=== PATIENT | female | born 1945 | race Caucasian/White ===

== ENCOUNTER → 2019-01-25 09:01 | Outpatient (CLI) | payer MEDICARE, SELFPAY ==
--- NOTE | 2019-01-25 09:07 | XR_ITS ---
XR chest 2V HISTORY: ITS.REASON: CHILLS,COUGH, former smoker ORDERING PHYSICIAN: Heena Angulo PATIENT AGE: 73 years COMPARISON: 10/26/2017 FINDINGS: Unremarkable heart size. Coronary artery stent is present. Lungs are free of acute infiltrate. There is hyperinflation with attenuation of the peripheral pulmonary vessels consistent with COPD. Mild degenerative changes are present in the thoracic spine with mild chronic kyphosis. IMPRESSION: COPD, no change with no acute finding
== END ==
PROVIDERS: PCP Family Medicine; Visit Provider Nurse Practitioner
DX: R68.83 Chills (without fever) (principal); R05 Cough
CPT/HCPCS: 71046

== ENCOUNTER → 2019-02-21 12:48 | Outpatient (CLI) | payer MEDICARE, SELFPAY ==
--- NOTE | 2019-02-21 12:52 | CT_ITS ---
CT lung screening EXAM: CT LUNG LOW DOSE WO CONTRAST HISTORY: 60 pack-year smoking history ITS.REASON: CURRENT TOBACCO USE, COUGH, COPD ORDERING PHYSICIAN: Heena Angulo PATIENT AGE: 74 years COMPARISON: None TECHNIQUE: The exam was performed on a GE Light Speed [address] scanner using 2.90 mGy CTDI. A low dose helical CT CHEST was performed on a multi-detector scanner. All CT scans at the facility use one or more dose reduction, viz: automated exposure control, ma/kV adjustment per patient size (including targeted exams where dose is matched to indication, i.e. head), or iterative reconstruction technique. The LDCT was performed in a facility that meets the criteria for the screening program. Data regarding this exam was submitted to ACR which is an approved registry. The order for this exam indicates that it came as a result of a lung cancer screening counseling shard decision-making visit that included all the elements required of such a visit including smoking cessation. The radiologist interpreting this exam meets the [facility] criteria for the LDCT lung cancer screening program. The exam is reported using the Lung-RADS classification scale and reported to the ACR registry. NOTE: This study was performed for the specific purposes of lung cancer screening and is not an alternative to diagnostic chest CT. RADIATION DOSE: CTDI vol(CT dose Index-volume) = 2.90mG DLP (Dose Length Product) = 106.55 mGcm FINDINGS: Centrilobular disease with scattered areas of fibrosis/scarring. 4 mm noncalcified nodule right middle lobe image #46. 4 mm noncalcified nodule right middle lobe image #58. 5 mm noncalcified nodule left upper lobe image #27. Fibrosis in the left upper lobe. Coronary artery calcification is noted. IMPRESSION: 1. Lung RADS Category: 2, benign 2. Other findings: COPD/centrilobular emphysema Coronary artery calcifications RECOMMENDATIONS: 12 month LDCT follow-up
== END ==
PROVIDERS: PCP Nurse Practitioner; Visit Provider Nurse Practitioner
DX: Z12.2 Encounter for screening for malignant neoplasm of respiratory organs (principal); Z87.891 Personal history of nicotine dependence; J44.9 Chronic obstructive pulmonary disease, unspecified; R05 Cough

== ENCOUNTER → 2019-05-30 10:15 | Outpatient (CLI) | payer MEDICARE, SELFPAY ==
--- NOTE | 2019-05-30 10:21 | XR_ITS ---
EXAM: XR cervical spine 5V HISTORY: ITS.REASON: NECK PAIN FOR 2 WKS ORDERING PHYSICIAN: Tracy Morales APRN PATIENT AGE: 74 years COMPARISON: None FINDINGS: There is minimal several millimeter anterior subluxation of C2 on C3 and C3 on C4. No fracture or dislocation. No lytic or blastic change. There is moderate loss of disc space height at C4-5 and C5-6 with small anterior spurs. There is very mild uncovertebral joint hypertrophy with mild foraminal encroachment on the right at C4-5 and C5-6. The remainder of the foraminal areas are normal. Prevertebral soft tissues appear normal. There is facet hypertrophy which is mild to moderate bilaterally at C2-3 and C3-4 especially on the right. Also noted are some calcifications in the left mid neck area. IMPRESSION: C2 on C3 and C3 on C4 mild anterolisthesis likely from facet arthrosis on the right. C4-C5 and C5-6 chronic degenerative disc disease with mild right-sided spondylosis. Calcified plaques at the left carotid bifurcation area.
== END ==
PROVIDERS: PCP Nurse Practitioner Family; Visit Provider Nurse Practitioner Family
DX: M54.2 Cervicalgia (principal)
CPT/HCPCS: 72050

== ENCOUNTER → 2019-06-09 12:45 | Outpatient (CLI) | payer MEDICARE, SELFPAY ==
--- NOTE | 2019-06-09 | CI_ITS ---
Cerebrovascular Exam Indications: 780.4 Dizziness and giddiness. Calcification seen on c-spine x-ray in area of lt carotid IMPRESSIONS 1. The right internal carotid artery reveals no evidence of plaque or stenosis. 2. The right common and external carotid arteries reveal no significant stenosis. 3. The bilateral vertebral arteries are patent with normal antegrade flow. 4. Study suggests less than 20% stenosis involving the left internal carotid artery. History: Risk factors: Current tobacco use. Hypertension. Carotid duplex study. Complete study and Doppler flow study including spectral analysis, color and mcgee scale imaging. Height: Height: 170.2cm. Height: 67in. Weight: Weight: 60.8kg. Weight: 133.7lb. Body mass index: BMI: 21kg/m^2. Body surface area: BSA: 1.69m^2. Location: Vascular laboratory. Patient status: Outpatient. Tables: Arterial flow: + +--------+--------+ Location V sys V ed + +--------+--------+ Right CCA - proximal 142cm/s 24.4cm/s + +--------+--------+ Right CCA - distal 80.9cm/s 22cm/s + +--------+--------+ Right ECA 116cm/s 12.6cm/s + +--------+--------+ Right ICA - proximal 74.1cm/s 15.8cm/s + +--------+--------+ Right ICA - mid 95.6cm/s 27.4cm/s + +--------+--------+ Right ICA - distal 77.8cm/s 21.2cm/s + +--------+--------+ Right vertebral 56.2cm/s 9.6cm/s + +--------+--------+ Left CCA - proximal 100cm/s 21.5cm/s + +--------+--------+ Left CCA - distal 85.3cm/s 23cm/s + +--------+--------+ Left ECA 107cm/s 18.3cm/s + +--------+--------+ Left ICA - proximal 71.9cm/s 17.8cm/s + +--------+--------+ Left ICA - mid 95.6cm/s 24.5cm/s + +--------+--------+ Left ICA - distal 112cm/s 37.6cm/s + +--------+--------+ Left vertebral 66cm/s 20.4cm/s + +--------+--------+ Velocity ratios: + + + + + + Right, V sys Right, V ed Left, V sys Left, V ed + + + + + + Max ICA/dist CCA 1.18 1.25 1.31 1.63 + + + + + + (Report amended ) Electronically signed by: Myron Torres [id number]
== END ==
PROVIDERS: PCP Nurse Practitioner Family; Visit Provider Family Medicine
DX: I65.22 Occlusion and stenosis of left carotid artery (principal)
CPT/HCPCS: 93880

== ENCOUNTER 2019-11-06 10:30 | Observation (INO) ==
--- NOTE | 2019-11-06 10:31 | Emergency Department Note ---
ED Disposition Clinical Impression: Chest pain Disposition: Home, Self-Care Condition on Discharge: Serious Time of Disposition: 11:30 - Critical Care Critical Care Time: No Attestation: On , the high probability of a clinically significant, sudden or life threatening deterioration of the following system(s) required my full and direct attention, intervention and personal management. The time I documented below is in addition to time spent performing reported procedures but includes the following listed in this critical care notation. Medical Decision Making - Medical Records Medical records reviewed: Yes: I reviewed the patient's medical records. - Abhishek Inquiry Pt receiving controlled substance: No Vital Signs: 11/06/19 10:22 11/06/19 11:12 Pulse Rate [Radial] 74 64 Respiratory Rate 18 Blood Pressure [Right Arm] 109/58 L 118/55 L Blood Pressure Mean [Right Arm] 75 76 Blood Pressure Source [Right Arm] Automatic Cuff Automatic Cuff Blood Pressure Position [Right Arm] Sitting Sitting 02 Sat by Pulse Oximetry 94 L 97 Oxygen Delivery Method Room Air Room Air - Lab Data Lab results reviewed: Yes: I reviewed the patient's lab results. Lab Results 11/06/19 10:23: WBC 10.2, RBC 4.60, Hgb 14.3, Hct 45.3, MCV 98.4, MCH 31.1, MCHC 31.6 L, RDW 14.0, Plt Count 321, MPV 8.2, Neut % (Auto) 55.3, Lymph % (Auto) 35.4, [place] % (Auto) 5.3, Eos % (Auto) 2.9, Baso % (Auto) 1.1, Neut # (Auto) 5.6, Lymph # (Auto) 3.6, [place] # (Auto) 0.5, Eos # (Auto) 0.3, Baso # (Auto) 0.1 11/06/19 10:23: Sodium 143, Potassium 3.5, Chloride 106, Carbon Dioxide 26, Anion Gap 14.5, BUN 16, Creatinine 0.67, Estimated Creat Clear 51, Estimated GFR 87, Est GFR ( Amer) 105, Glucose 124 H, Calcium 8.3 L, Troponin I < 0.02, TSH 8.47 H 11/06/19 10:23: PT 10.3, INR 0.99, APTT 22.0 L 11/06/19 10:23: B-Natriuretic Peptide 32 Result diagrams: 11/06/19 10:23 11/06/19 10:23 Orders (Tests/Meds): ED MEDICATIONS Discontinued Medications Generic Name Dose Route Start Last Admin Trade Name Johnna PRN Reason Stop Dose Admin Aspirin 162 mg 11/06/19 10:31 11/06/19 10:33 Aspirin 81mg Chewable Tablet PO 11/06/19 10:32 162 mg ONCE ONE Administration Aspirin 162 mg 11/06/19 10:32 Aspirin 81mg Chewable Tablet PO 11/06/19 10:33 ONCE ONE ORDERS Category Date Time Status Chest XR 2 view (NOT portable) [XR chest 2V] Stat Exams 11/06/19 10:32 Taken Free T4 (Free Thyroxine) Stat Lab 11/06/19 11:09 Ordered Troponin I Q3H Lab 11/06/19 13:45 Ordered Troponin I Q3H Lab 11/06/19 16:45 Ordered - Radiology Data #1 Image(s): Chest Image Reviewed: Yes I reviewed the patient's radiology image Preliminary Findings: Abnormal (Increased lung and lower right lung brooks but no nicole lobar consolidation.) - ECG Data Tracing #1 I reviewed this ECG and interpreted as documented below: Normal sinus rhythm with a ventricular rate of 68 bpm. ECG initial impression date: 11/06/19 ECG initial impression time: 10:20 ECG normal with no acute: arrhythmias, ischemia, conduction abnormalities, chamber hypertrophy Normal Sinus Rhythm: Yes - Physician Consults Physician Consulted: Dr. Melara for admission. Time: 11:00 Reason -: Admission Additional Consult: Dr. Sullivan for Dr. Maya [facility] cardiology. Time: 11:00 Reason -: Admission Comment/Response: Discussed patient's case with Dr. Sullivan who is on-call for the patient's assistant laboratory director Dr. Maya. He agreed to accept the patient however there is a waiting list for admission. Dr. Melara will admit the patient here and will transfer if she rules in for [place]. However, we will keep the patient on the waiting list just in case. Chest Pain HPI - General Chief Complaint: Chest Pain Stated Complaint: chest pain Time Seen by Provider: 11/06/19 10:22 Mode of Arrival: EMS Limitations: No Limitations Description of Symptoms (Recalled from ER Triage Doc. by RN): While at work today she began to have chest pain across her chest and up into her jaw. Attempted to get here via family car but had to stop and call ems. Patient has already taken 2 81mg Asa and 1 Nitro enroute. - History of Present Illness HPI narrative: 74-year-old female with a history of cardiac stent and AMI presents to the emergency department after a 30-minute episode of lower central chest pain, nausea and a syncopal episode. MD complaint: chest pain indicative of cardiac Onset (ago): hour(s) (1) Duration: constant, now resolved Pain location: substernal Severity: severe Quality: tightness, aching Pain radiation: jaw/teeth Relieving factors: nothing Exacerbating factors: nothing Associated symptoms: nausea, syncope Treatments prior to or on arrival for Cardiac Chest Pain: aspirin, nitroglycerin - Related Data Home Medications Medication Instructions Recorded Confirmed Aspirin [Aspir 81] 81 mg PO DAILY 11/06/19 11/06/19 Atenolol [Tenormin 25mg Tab] 25 mg PO DAILY 11/06/19 11/06/19 Simvastatin 20 mg PO DAILY 11/06/19 11/06/19 Allergies Allergy/AdvReac Type Severity Reaction Status Date / Time No Known Allergies Allergy Verified 11/06/19 10:27 [facility] History - Hepatitis A Screen Drug use history?: No High risk sexual behaviors?: No History of sexually transmitted infection?: No Currently employed?: No Childcare worker?: No Do you have indoor plumbing?: Yes Do you have electricity?: Yes Attestation statement:: This patient has been screened for Hepatitis A risk factors. I have reviewed the patient's past medical history: Yes Medical History: Reports:: Coronary Artery Disease, Hyperlipidemia, Hypertension Other Surgeries: Yes: Cardiac Catheterization - Social History Educational Level: Completed High School Smoking Status: Current every day smoker Tobacco Type: cigarettes # Packs/Day (cigarettes): 1 Alcohol Intake: never Occupational Status: employed Housing: house ROS Obtained: Yes Systems reviewed as appropriate & no additional complaints - Constitutional Constitutional: Reports malaise - Eyes Eyes: Reports system reviewed and no additional complaints, except as docu - ENT Ears, Nose, Mouth, and Throat: Reports system reviewed and no additional complaints, except as docu - Cardiovascular Cardiovascular: Reports chest pain, Reports radiating jaw, neck or arm pain - Respiratory Respiratory: Yes system reviewed and no additional complaints, except as docu - Gastrointestinal Gastrointestingal: Reports: nausea - Genitourinary Female Genitourinary: Reports system reviewed and no additional complaints, except as docu - Musculoskeletal Musculoskeletal: Reports system reviewed and no additional complaints, except as docu - Integumentary/Breasts Skin/Breast: Reports system reviewed and no additional complaints, except as docu - Neurologic Neurologic: Reports syncope - Endocrine Endocrine: Reports system reviewed and no additional complaints, except as docu - Hematologic/Lymphatic Henatologic/Lymphatic: Reports system reviewed and no additional complaints, except as docu - Allergic/Immunologic Allergic/Immunologic: Reports system reviewed and no additional complaints, ex cept as docu Physical Exam - General General appearance: alert, in no apparent distress - Head Head exam: atraumatic, normocephalic, normal inspection - Eye Eye exam: Present: normal appearance, PERRL, EOMI - ENT ENT exam: Present: normal exam, normal oropharynx, mucous membranes moist, normal external ear exam - Neck Neck exam: Present: normal inspection, full ROM, trachea midline. Absent: meningismus, lymphadenopathy - Chest Chest inspection: Present: normal inspection, symmetric chest wall rise. Absent: tenderness - Respiratory Respiratory exam: Present: normal lung sounds bilaterally. Absent: respiratory distress - Cardiovascular Cardiovascular exam: Present: regular rate, normal rhythm. Absent: JVD - Abdominal Exam Abdominal exam: Present: soft, normal bowel sounds. Absent: distention, tenderness, guarding - Extremities Exam Extremities exam: Present: normal inspection, full ROM, normal capillary refill. Absent: calf tenderness - Back Exam Back exam: Present: normal inspection. Absent: tenderness - Neurological Exam Neurological exam: Present: alert, oriented X3, CN II-XII intact, normal gait. Absent: motor sensory deficit - Psychiatric Psychiatric exam: Present: normal affect, normal mood - Skin Skin exam: Present: warm, dry, intact, normal color
[2019-11-06 10:46] LABS: Basophils # 0.1 K/mm3 (0-0.2); Basophils % 1.1 % (0.1-2.0); Eosinophils # 0.3 K/mm3 (0.0-0.4); Eosinophils % 2.9 % (0.1-12.0); Hematocrit 45.3 % (37.0-47.0); Hemoglobin 14.3 g/dL (12.2-16.2); Lymphocytes # 3.6 K/mm3 (0.7-4.5); Lymphocytes % 35.4 % (10-50); Mean Corpuscular HGB Conc 31.6 g/dL (31.8-35.4); Mean Corpuscular Volume 98.4 fl (81-99); Mean Platelet Volume 8.2 fl (7.4-10.4); Monocytes # 0.5 K/mm3 (0.1-1.0); Monocytes % 5.3 % (1.7-9.3); Neutrophils # 5.6 K/mm3 (1.8-7.8); Neutrophils % 55.3 % (37.0-80.0); Platelet Count 321 K/mm3 (142-424); White Blood Count 10.2 K/mm3 (4.8-10.8)
[2019-11-06 10:51] LABS: INR 0.99 (0.9-1.1); Prothrombin Time 10.3 seconds (9.4-11.8)
[2019-11-06 11:03] LABS: Anion Gap 14.5 mEq/L (5-15); Blood Urea Nitrogen 16 mg/dL (7-18); Calcium 8.3 mg/dL (8.5-10.1); Carbon Dioxide 26 mmol/L (21.0-32.0); Chloride 106 mmol/L (98-107); Glucose 124 mg/dL (74-106); Sodium 143 mmol/L (136-145); Thyroid Stimulating Hormone 8.47 uIU/ml (0.358-3.740)
--- NOTE | 2019-11-06 13:11 | History & Physical Report ---
*Admission Date: 11/06/19 *Chief complaint: Chest Tightness *History of present illness: 74 year old female with PMH of NSTEMI nearly 20 years ago presented to ER after an episode of chest tightness like "a band was wrapped around my chest". 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 She informed coworkers and was given aspirin and nitroglycerin. After receiving the nitroglycerin patient became weak and turned ashen according to coworkers. Initially she was going to be brought to the ER via private vehicle but lost consciousness in route and EMS was called. When in route by EMS patient also vomited. EKG performed in route did not reveal any ischemia or acute injury. Chest tightness had completely resolved by the time patient arrived to the ER. In ER workup was essentially normal. Patient has admitted for telemitry monitoring and serial troponins. Patient feels "almost" back to baseline. She denies dyspnea, diarrhea, fevers, chills. She slept well last night. Her Administrative Assistant is Dr. Brian Amador and she last saw him in February 2019. [facility] History I have reviewed the patient's past medical history: Yes Medical History: Reports:: Coronary Artery Disease, Hyperlipidemia, Hypertension *Have you ever received a pneumonia vaccine?: Yes *Have you received a flu vaccine this season?: Yes Laterality Cases: Right: Other (pinning of hip fracture) Other Surgeries: Yes: Cardiac Catheterization - *Social History Educational Level: Completed High School Smoking Status: Current every day smoker Tobacco Type: cigarettes # Packs/Day (cigarettes): 1 Alcohol Intake: never *Occupational Status:: employed Housing: house *Travel in the last 8 weeks: None Family Hx:: Heart Attack, Hypertension Review of Systems - Review of Systems see HPI - *Neurologic Reports fainting Meds Home Medications Medication Instructions Recorded Confirmed Type Aspirin [Aspir 81] 81 mg PO DAILY 11/06/19 11/06/19 History Atenolol [Tenormin 25mg Tab] 25 mg PO DAILY 11/06/19 11/06/19 History Simvastatin 20 mg PO DAILY 11/06/19 11/06/19 History Allergies Allergy/AdvReac Type Severity Reaction Status Date / Time No Known Allergies Allergy Verified 11/06/19 10:27 Exam Vital signs and Labs for Last 24 Hours: Temp Pulse Resp BP Pulse Ox 98.1 F 90 20 108/70 L 99 11/06/19 12:50 11/06/19 12:50 11/06/19 12:50 11/06/19 12:50 11/06/19 12:40 Laboratory Results - last 24 hr 11/06/19 10:23: WBC 10.2, RBC 4.60, Hgb 14.3, Hct 45.3, MCV 98.4, MCH 31.1, MCHC 31.6 L, RDW 14.0, Plt Count 321, MPV 8.2, Neut % (Auto) 55.3, Lymph % (Auto) 35.4, [place] % (Auto) 5.3, Eos % (Auto) 2.9, Baso % (Auto) 1.1, Neut # (Auto) 5.6, Lymph # (Auto) 3.6, [place] # (Auto) 0.5, Eos # (Auto) 0.3, Baso # (Auto) 0.1 11/06/19 10:23: Sodium 143, Potassium 3.5, Chloride 106, Carbon Dioxide 26, Anion Gap 14.5, BUN 16, Creatinine 0.67, Estimated Creat Clear 51, Estimated GFR 87, Est GFR ( Amer) 105, Glucose 124 H, Calcium 8.3 L, Troponin I < 0.02, TSH 8.47 H 11/06/19 10:23: PT 10.3, INR 0.99, APTT 22.0 L 11/06/19 10:23: B-Natriuretic Peptide 32 11/06/19 10:23: Free T4 0.87 I & O for Last 24 hours: Intake & Output 11/04/19 11/05/19 11/06/19 11/07/19 11:59 11:59 11:59 11:59 Weight 139 lb 134 lb 7 oz - *Routine HEENT Exam Head: Present: normocephalic Eye: Present: EOMI, PERRL ENT: Present: mucous membranes moist - *Routine Neck Exam Present: supple. Absent: lymphadenopathy - *Routine Respiratory Exam Present: CTA bilaterally - *Routine Cardiovascular Exam Present: RRR - *Routine Abdominal Exam Present: soft, normoactive bowel sounds. Absent: tenderness - *Routine Extremities Exam Present: edema (left lower leg from trauma/venous insuff). Absent: cyanosis, clubbing - *Routine Skin Exam Present: warm. Absent: rash - *Routine Neurological Exam Present: alert, oriented X3 Assessment and Plan (1) Coronary artery disease Current visit: Yes Status: Acute Category: Medical Code(s): I25.10 - Atherosclerotic heart disease of [place] coronary artery without angina pectoris (2) History of NH (myocardial infarction) Current visit: Yes Status: Acute Category: Medical Code(s): I25.2 - Old myocardial infarction (3) Cigarette smoker Current visit: Yes Status: Acute Category: Medical Code(s): F17.210 - Nicotine dependence, cigarettes, uncomplicated (4) Chest pain Current visit: Yes Status: Acute Category: Medical Code(s): R07.9 - Chest pain, unspecified - Assessment and plan all Dx Assessment and Plan for all problems:: Admit for rule out of NH and cardiac monitoring. Echocardiogram in a.m.
--- NOTE | 2019-11-07 07:15 | Progress Note ---
Internal Medicine - PN: Subj *Date: 11/07/19 *Time: 07:14 Interval history: Patient ruled out for NC yesterday. She has not had any further chest pain. Telemetry has not revealed any arrhythmias. She is scheduled for echocardiogram this morning. Exam Vital signs and Labs for Last 24 Hours: Temp Pulse Resp BP Pulse Ox 98.2 F 71 17 140/69 97 11/07/19 04:00 11/07/19 04:00 11/07/19 04:00 11/07/19 04:00 11/07/19 04:00 Laboratory Results - last 24 hr 11/06/19 10:23: WBC 10.2, RBC 4.60, Hgb 14.3, Hct 45.3, MCV 98.4, MCH 31.1, MCHC 31.6 L, RDW 14.0, Plt Count 321, MPV 8.2, Neut % (Auto) 55.3, Lymph % (Auto) 35.4, [place] % (Auto) 5.3, Eos % (Auto) 2.9, Baso % (Auto) 1.1, Neut # (Auto) 5.6, Lymph # (Auto) 3.6, [place] # (Auto) 0.5, Eos # (Auto) 0.3, Baso # (Auto) 0.1 11/06/19 10:23: Sodium 143, Potassium 3.5, Chloride 106, Carbon Dioxide 26, Anion Gap 14.5, BUN 16, Creatinine 0.67, Estimated Creat Clear 51, Estimated GFR 87, Est GFR ( Amer) 105, Glucose 124 H, Calcium 8.3 L, Troponin I < 0.02, TSH 8.47 H 11/06/19 10:23: PT 10.3, INR 0.99, APTT 22.0 L 11/06/19 10:23: B-Natriuretic Peptide 32 11/06/19 10:23: Free T4 0.87 11/06/19 14:25: Troponin I < 0.02 11/06/19 16:58: Troponin I < 0.02 I & O for Last 24 hours: Intake & Output 11/04/19 11/05/19 11/06/19 11/07/19 11:59 11:59 11:59 11:59 Intake Total 720 / 720 Balance 720 / 720 Weight 139 lb 134 lb 7 oz Narrative: Patient appears comfortable sitting in bed. Lungs remain clear. Heart has a regular rate and rhythm. She has swelling around the left lower leg and ankle from prior trauma Assessment and Plan (1) Coronary artery disease Current visit: Yes Status: Acute Category: Medical Code(s): I25.10 - Atherosclerotic heart disease of [place] coronary artery without angina pectoris (2) History of NC (myocardial infarction) Current visit: Yes Status: Acute Category: Medical Code(s): I25.2 - Old myocardial infarction (3) Cigarette smoker Current visit: Yes Status: Acute Category: Medical Code(s): F17.210 - Nicotine dependence, cigarettes, uncomplicated (4) Chest pain Current visit: Yes Status: Acute Category: Medical Code(s): R07.9 - Chest pain, unspecified - Assessment and plan all Dx Assessment and Plan for all problems:: 1. Echocardiogram today and discharge later this morning. Follow-up will be arranged with patient's microbiology lab analyst Dr. Amador
--- NOTE | 2019-11-07 07:19 | Discharge Summary ---
General - General Admission date:: 11/06/19 Discharge date: 11/07/19 HPI HPI: 74 year old female with PMH of NSTEMI nearly 20 years ago presented to ER after an episode of chest tightness like "a band was wrapped around my chest". 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 She informed coworkers and was given aspirin and nitroglycerin. After receiving the nitroglycerin patient became weak and turned ashen according to coworkers. Initially she was going to be brought to the ER via private vehicle but lost consciousness in route and EMS was called. When in route by EMS patient also vomited. EKG performed in route did not reveal any ischemia or acute injury. Chest tightness had completely resolved by the time patient arrived to the ER. In ER workup was essentially normal. Patient has admitted for telemitry monitoring and serial troponins. Patient feels "almost" back to baseline. She denies dyspnea, diarrhea, fevers, chills. She slept well last night. Her Service Center Coordinator is Dr. Brian Amador and she last saw him in February 2019. Hospital Course Hospital Course: Patient was admitted for rule out of RI. Troponins were ordered every 3x2 after troponin in the emergency department was negative. Patient subsequent troponins remained low at less than 0.02. Telemetry monitoring did not reveal any cardiac arrhythmias. Patient did well overnight without recurrence of chest pain, nausea or weakness. Echocardiogram was performed. Patient was discharged home later in the day and follow-up will be arranged with her marketing analyst Dr. Brian Amador Objective Vital signs: Temp Pulse Resp BP Pulse Ox 98.2 F 71 17 140/69 97 11/07/19 04:00 11/07/19 04:00 11/07/19 04:00 11/07/19 04:00 11/07/19 04:00 no acute distress - *Routine Respiratory Exam Present: CTA bilaterally - *Routine Cardiovascular Exam Present: RRR, Normal S1, Normal S2 Results Labs on day of discharge: Labs from last 24 hours 11/06/19 11/06/19 11/06/19 16:58 14:25 10:23 WBC RBC Hgb Hct MCV MCH MCHC RDW Plt Count MPV Neut % (Auto) Lymph % (Auto) Stan[place] % (Auto) Eos % (Auto) Baso % (Auto) Neut # (Auto) Lymph # (Auto) Stan[place] # (Auto) Eos # (Auto) Baso # (Auto) PT INR APTT Sodium Potassium Chloride Carbon Dioxide Anion Gap BUN Creatinine Estimated Creat Clear Estimated GFR Est GFR ( Amer) Glucose Calcium Troponin I < 0.02 < 0.02 B-Natriuretic Peptide TSH Free T4 0.87 11/06/19 11/06/19 11/06/19 10:23 10:23 10:23 WBC RBC Hgb Hct MCV MCH MCHC RDW Plt Count MPV Neut % (Auto) Lymph % (Auto) Stan[place] % (Auto) Eos % (Auto) Baso % (Auto) Neut # (Auto) Lymph # (Auto) Stan[place] # (Auto) Eos # (Auto) Baso # (Auto) PT 10.3 INR 0.99 APTT 22.0 L Sodium 143 Potassium 3.5 Chloride 106 Carbon Dioxide 26 Anion Gap 14.5 BUN 16 Creatinine 0.67 Estimated Creat Clear 51 Estimated GFR 87 Est GFR ( Amer) 105 Glucose 124 H Calcium 8.3 L Troponin I < 0.02 B-Natriuretic Peptide 32 TSH 8.47 H Free T4 11/06/19 10:23 WBC 10.2 RBC 4.60 Hgb 14.3 Hct 45.3 MCV 98.4 MCH 31.1 MCHC 31.6 L RDW 14.0 Plt Count 321 MPV 8.2 Neut % (Auto) 55.3 Lymph % (Auto) 35.4 Stanly % (Auto) 5.3 Eos % (Auto) 2.9 Baso % (Auto) 1.1 Neut # (Auto) 5.6 Lymph # (Auto) 3.6 Stanly # (Auto) 0.5 Eos # (Auto) 0.3 Baso # (Auto) 0.1 PT INR APTT Sodium Potassium Chloride Carbon Dioxide Anion Gap BUN Creatinine Estimated Creat Clear Estimated GFR Est GFR ( Amer) Glucose Calcium Troponin I B-Natriuretic Peptide TSH Free T4 DS: Diagnosis - Discharge Diagnosis (1) Coronary artery disease Status: Acute (2) History of RI (myocardial infarction) Status: Acute (3) Cigarette smoker Status: Acute (4) Chest pain Status: Acute Discharge Plan - Patient Discharge Instructions ACTIVITY: Continue current activity Patient Instructions: Assess Your Smoking Habit, Tips to Help You Stop Smoking, DI for Chest Pain, DI for Coronary Artery Disease - Follow up Plan Follow up with: Dewayne Melara MD [Primary Care Provider] - Disposition: Home, Self-Assisted Medications: Home Medications Medication Instructions Recorded Confirmed Type Aspirin [Aspir 81] 81 mg PO DAILY 11/06/19 11/06/19 History Atenolol [Tenormin 25mg Tab] 25 mg PO DAILY 11/06/19 11/06/19 History Simvastatin 20 mg PO DAILY 11/06/19 11/06/19 History Prescriptions/Medication Reconciliation: Continued Simvastatin 20 mg PO DAILY Atenolol [Tenormin 25mg Tab] 25 mg PO DAILY Aspirin [Aspir 81] 81 mg PO DAILY - Problem Reconciliation Problems Reviewed?: Yes
[2019-11-07 07:30] LABS: Basophils # 0.1 K/mm3 (0-0.2); Basophils % 0.9 % (0.1-2.0); Eosinophils # 0.2 K/mm3 (0.0-0.4); Eosinophils % 2.6 % (0.1-12.0); Hematocrit 41.8 % (37.0-47.0); Hemoglobin 13.5 g/dL (12.2-16.2); Lymphocytes # 2.2 K/mm3 (0.7-4.5); Lymphocytes % 25.4 % (10-50); Mean Corpuscular HGB Conc 32.2 g/dL (31.8-35.4); Mean Corpuscular Volume 98.3 fl (81-99); Mean Platelet Volume 7.5 fl (7.4-10.4); Monocytes # 0.4 K/mm3 (0.1-1.0); Monocytes % 4.7 % (1.7-9.3); Neutrophils # 5.9 K/mm3 (1.8-7.8); Neutrophils % 66.6 % (37.0-80.0); Platelet Count 251 K/mm3 (142-424); Red Blood Count 4.26 M/mm3 (4.20-5.40); Red Cell Distribution Width 14.1 % (11.5-17.5); White Blood Count 8.8 K/mm3 (4.8-10.8)
[2019-11-07 08:16] LABS: Albumin Level 3.1 gm/dL (3.4-5.0); Anion Gap 14.5 mEq/L (5-15); Bilirubin,Total 0.4 mg/dL (0.2-1.0); Calcium 7.8 mg/dL (8.5-10.1); Chol/HDL Ratio 2.5 (1-3.5); Globulin 3.1 gm/dl (1.3-3.2); Total Protein,Serum 6.2 gm/dL (6.4-8.2)
--- NOTE | 2019-11-07 18:15 | Electrocardiograph Report ---
APPROVED REPORT Exam: Resting ECG HR:68 bpm ECG Measurements Heart Rate [address] 144 P 73 QRSd 78 QRS -23 QT 466 T101 QTc 495 <Conclusion> Normal sinus rhythm LAD Abnormal ECG Electronically signed by : Aroldo Wasserman, 11/07/2019 18:14:52
--- NOTE | 2019-11-08 14:16 | Cardiology Report ---
APPROVED REPORT EXAM: Comprehensive 2D, Doppler, and color-flow Echocardiogram French Comber: Christy Rosado RVT Ht: 5 ft 7 in Wt: 134lbs BSA: 1.71 BP: 108/70 mmHg Indications: Chest Pain, Hyperlipidemia, Hypertension,Ex-smoker,NSTEMI-20YRS AGO,CAD 2D Dimensions LVOT 1.82 cm (M/F) 1.5-2.5 M-Mode Dimensions RVDd 2.13 cm (0.9-2.6)LA Diam 3.90 cm (1.9-4.0) LVDd 5.09 cm (3.5-5.7)Ao Diam 2.80 cm (2.0-3.7) LVDs 3.49 cm (3.5-5.7)AV Cusp 2.00 cm (1.5-2.6) IVSd 0.99 cm (0.6-1.1)PWd 0.68 cm (0.6-1.1) EF (Teich) 59.00% FS 31.40% EDV (Teich) 123.20 mLESV (Teich) 50.50 mL LV Diastology E/A Ratio 0.93 Mitral Valve MV A Velocity 78.00 (40-130 cm/s) Left Ventricle Left atrium is mildly enlarged, left ventricle is normal size, mild concentric left ventricular hypertrophy, visually estimated ejection fraction 45%, there is marked hypokinesis involving the inferior basal and posterolateral wall. Grade 1 diastolic dysfunction seen without tissue Doppler evidence of raise left atrial pressure. Right Ventricle Right atrium and right ventricular mildly enlarged with normal contractility. Aortic Valve Aortic valve is thickened and calcified leaflet chordae display good mobility, there is no aortic stenosis or aortic insufficiency. Mitral Valve Mitral valve is minimally thickened, there is no mitral stenosis, there is mild mitral regurgitation. Tricuspid Valve Tricuspid valve is grossly normal, there is mild tricuspid regurgitation. Pulmonic Valve Pulmonic valve is poorly visualized. Great Vessels Aortic root is normal size. Pericardium No significant pericardial effusion noted. Conclusion 1. Biatrial enlargement, normal left ventricular size, mild concentric left ventricular hypertrophy, visually estimated ejection fraction 45% with multiple segmental wall motion abnormality described above, grade 1 diastolic dysfunction seen without tissue Doppler evidence of raise left atrial pressure. 2. Mildly enlarged right ventricle with normal contractility. 3. Mild mitral and tricuspid regurgitation. 4. No significant pericardial effusion noted. Electronically signed by : Roberto Abreu, 11/08/2019 14:16:44
== END 2019-11-07 10:09 | disposition home or self-care (01) ==
LOC: 2ND 10:30 → ER 10:30 → 2ND 12:38
PROVIDERS: ADMIT Family Medicine; ATTEND Family Medicine
CPT/HCPCS: 36415; 71020; 71046; 80048; 80053; 80061; 83880; 84439; 84443; 84484; 85025; 85610; 85730; 93005; 93306; 99284; G0378

== ENCOUNTER → 2019-11-10 12:29 | Outpatient (CLI) | payer MEDICARE, SELFPAY ==
--- NOTE | 2019-11-10 12:34 | XR_ITS ---
PROCEDURE: XR TIBIA FIBULA LT 2V CLINICAL INDICATION: INJURY TO BERUMEN, PAIN COMPARISON: No exams were available for comparison FINDINGS: No fracture or dislocation. No lytic or blastic change. There is mild osteoarthritic change of medial compartment IMPRESSION: No acute findings. Dictated by: Myron Torres MD 11/10/2019 12:50 Electronically signed by Myron Torres MD in [place] 11/10/2019 12:50
== END ==
PROVIDERS: PCP Family Medicine; Visit Provider Family Medicine
DX: M79.662 Pain in left lower leg (principal)
CPT/HCPCS: 73590

== ENCOUNTER → 2020-11-14 12:34 | Outpatient (CLI) | payer MEDICARE, SELFPAY ==
[2020-11-14 14:54] LABS: Coronavirus 19 IgG Antibody Negative (Negative); Coronavirus 19 IgM Antibody Negative (Negative)
== END ==
PROVIDERS: Visit Provider Surgery
DX: Z01.818 Encounter for other preprocedural examination (principal); Z03.818 Encounter for observation for suspected exposure to other biological agents ruled out; Z12.11 Encounter for screening for malignant neoplasm of colon
CPT/HCPCS: 36415; 86328

== ENCOUNTER 2020-11-15 06:22 | Day surgery (SDC) | payer MEDICARE, SELFPAY ==
[2020-11-13 10:34] VITALS: BMI 22.1
[2020-11-15 06:42] VITALS: BP 122/68; PULSE 99; RESP 20; TEMP 36.3; O2SAT 96
--- NOTE | 2020-11-15 07:09 | HMH.ANESCL ---
[facility] Anesthesia Checklist - Patient Identification Patient Identification: Arm Band, Verbal (Name & ) - Structural Data Admitted From: Home Planned Operative Procedure/s: colonoscopy Consent for Planned Operative Procedure(s) Verified: Yes Verified Documents: History and Physical - NPO Status Verified Time NPO: 00:00 - Additional verifications Patient : No Anesthesia Reactions: No Hx Blood Transfusions: No Blood Transfusion Reaction: No Cephalosporin Allergy: No Previous Colonoscopy: Yes - Cardiovascular Assessment Heart Sounds: S1 & S2 Pulse Strength: Baseline Pulse Rhythm: Regular Peripheral Edema: No - Airway Assessment C-Spine Mobility Assessed: Yes TMJ Mobility Assessed: Yes Dentition: Partials - Neurological Assessment Level of Consciousness: Awake, Alert, Appropriate Hx Seizures: No Numbness or tingling in extremities: No - Anesthesia Plan Anesthesia Risk discussed: Yes Anesthesia Plan: Verified ASA Class: III Anesthesia Type: MAC [facility] History I have reviewed the patient's past medical history: Yes Medical History: Reports:: Coronary Artery Disease, Hyperlipidemia, Hypertension Denies:: Cancer, Diabetes Mellitus Type 1, Diabetes Mellitus Type 2, Internal Pacemaker, MRSA, Seizures *Have you ever received a pneumonia vaccine?: Yes *Have you received a flu vaccine this season?: Yes Anesthesia experience/problems:: none Laterality Cases: Right: Other Other Surgeries: Yes: Cardiac Catheterization, Colonoscopy, Coronary Stent. No: Pacemaker Amputation: No Fractures: No - *Social History Last grade of school completed: High school graduate Smoking Status: Never smoker Tobacco Type: cigarettes # Packs/Day (cigarettes): 1 Alcohol Intake: never Substance Use Type: other *Occupational Status:: employed Housing: house Household Members: none *Travel in the last 8 weeks: None Family Hx:: Cancer, Coronary Artery Disease, Heart Attack
[2020-11-15 07:13] VITALS: O2SAT 97
[2020-11-15 08:14] VITALS: BP 89/51; PULSE 73; RESP 18; TEMP 36.2; O2SAT 92
--- NOTE | 2020-11-15 08:16 | HMH.SCOPE ---
- Procedure: Date: 11/15/20 Patient Date of :: 1945 Procedure Performed:: Colonoscopy with polypectomy Indications:: History of colon polyps Performing Provider:: Hardeep Riley MD Referring Provider:: Dr. Melara Sedation:: Monitored anesthesia care Procedure:: After informed consent was obtained the patient was taken to the endoscopy suite. Sedation ensued after the patient was transferred to the left lateral decubitus position. Pulse, blood pressure, and oxygen saturation were monitored throughout the procedure. Digital rectal exam revealed no significant abnormality. The colonoscope was placed in position. The entire colon was evaluated. The colonoscope was carefully removed and the patient was transferred to recovery in stable condition. Please see findings and specimens below for detail. Findings:: Bowel preparation poor Significant sigmoid diverticulosis Significant tortuosity of sigmoid colon Multiple complex polyps (see specimens) Specimens:: Pedunculated cecal polyp (snare) Sessile right colon polyp (snare) Adjacent polyps at 50 cm (snare) Adjacent polyps at 12 cm (snare) Recommendations:: Timing of repeat colonoscopy is pending pathology but will likely be between 3-6 months with extended bowel preparation. Complications:: Poor bowel preparation Estimated blood obtained (mL): 1
[2020-11-15 08:24] VITALS: BP 99/71; PULSE 78; RESP 18; O2SAT 96
[2020-11-15 08:34] VITALS: BP 133/69; PULSE 76; RESP 18; O2SAT 98
[2020-11-15 08:47] VITALS: BP 131/69; PULSE 74; RESP 18; O2SAT 98
== END 2020-11-15 08:50 | disposition home or self-care (01) ==
LOC: OUTP 06:23
PROVIDERS: PCP Family Medicine; Visit Provider Surgery
PROC: 0DJD8ZZ Inspection of Lower Intestinal Tract, Via Natural or Artificial Opening Endoscopic (ICD-10-PCS; CPT 45385; principal; 2020-11-15 07:30)
DX: Z12.11 Encounter for screening for malignant neoplasm of colon (principal); Z86.010 Personal history of colon polyps; K57.30 Diverticulosis of large intestine without perforation or abscess without bleeding; K63.5 Polyp of colon; K56.2 Volvulus; I25.2 Old myocardial infarction; I25.10 Atherosclerotic heart disease of native coronary artery without angina pectoris; E78.5 Hyperlipidemia, unspecified; I10 Essential (primary) hypertension; Z79.82 Long term (current) use of aspirin; Z79.899 Other long term (current) drug therapy
CPT/HCPCS: 45385; 88305

== ENCOUNTER → 2021-01-16 09:15 | Outpatient (CLI) | payer MEDICARE, SELFPAY ==
--- NOTE | 2021-01-16 09:19 | CA_ITS ---
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 Color flow duplex demonstrates no evidence of SVT of the Small and Great Saphenous Veins. Negative for DVT. Conclusion Color flow duplex demonstrates no evidence of DVT of the following right lower extremity Vein:. Color flow duplex demonstrates no evidence of SVT of the Small and Great Saphenous Veins. Negative for DVT. Electronically signed by : Myron Torres MD 01/16/2021 18:31:10
== END ==
PROVIDERS: PCP Family Medicine; Visit Provider Nurse Practitioner Family
DX: M79.661 Pain in right lower leg (principal); R60.0 Localized edema
CPT/HCPCS: 93971

== ENCOUNTER → 2021-03-26 08:24 | Outpatient (CLI) | payer MEDICARE, SELFPAY | PROVIDERS: Visit Provider Surgery | DX: Z01.812 Encounter for preprocedural laboratory examination (principal); Z20.822 Contact with and (suspected) exposure to COVID-19; Z12.11 Encounter for screening for malignant neoplasm of colon | CPT/HCPCS: U0003 ==

== ENCOUNTER 2021-03-28 06:32 | Day surgery (SDC) | payer MEDICARE, SELFPAY ==
[2021-03-20 14:58] VITALS: BMI 22.2
[2021-03-28 06:46] VITALS: BP 126/83; PULSE 83; RESP 18; TEMP 36.2; O2SAT 95
--- NOTE | 2021-03-28 07:04 | P.PN_ITS ---
[facility] Anesthesia Checklist - Patient Identification Patient Identification: Arm Band - Structural Data Admitted From: Home Planned Operative Procedure/s: Colonoscopy Consent for Planned Operative Procedure(s) Verified: Yes - NPO Status Verified Time NPO: 04:45 (Black coffee) - Additional verifications Anesthesia Reactions: No Hx Blood Transfusions: No Blood Transfusion Reaction: No - Airway Assessment C-Spine Mobility Assessed: Yes TMJ Mobility Assessed: Yes Dentition: Poor Dentition (Partial removed) - Neurological Assessment Level of Consciousness: Awake Hx Seizures: No Numbness or tingling in extremities: No - Anesthesia Plan Anesthesia Risk discussed: Yes Anesthesia Plan: Verified ASA Class: III Anesthesia Type: MAC [facility] History I have reviewed the patient's past medical history: Yes Medical History: Reports:: Coronary Artery Disease, Hyperlipidemia, Hypertension, Myocardial Infarction Denies:: Cancer, Diabetes Mellitus Type 1, Diabetes Mellitus Type 2, Internal Pacemaker, MRSA, Seizures *Have you ever received a pneumonia vaccine?: Yes *Have you received a flu vaccine this season?: Yes Other Medical History: Denies: Blood Transfusion Reaction Anesthesia experience/problems:: None Laterality Cases: Right: Other Other Surgeries: Yes: Cardiac Catheterization, Colonoscopy, Coronary Stent. No: Pacemaker Amputation: No Fractures: No - *Social History Smoking Status: Never smoker Tobacco Type: cigarettes # Packs/Day (cigarettes): 1 Alcohol Intake: never Substance Use Type: other *Occupational Status:: employed Housing: house Household Members: none *Travel in the last 8 weeks: None Family Hx:: Cancer, Coronary Artery Disease, Heart Attack
[2021-03-28 07:28] VITALS: O2SAT 97
--- NOTE | 2021-03-28 08:20 | P.PCN_ITS ---
- Procedure: Date: 03/28/21 Patient Date of :: 1945 Procedure Performed:: Colonoscopy with polypectomy Indications:: History of multiple complex polyps noted earlier this year. Colonoscopy earlier this year limited by fairly poor bowel preparation, significant spasticity, and lack of relaxation. Sigmoid diverticulosis Performing Provider:: Hardeep Riley MD Referring Provider:: . Sedation:: Monitored anesthesia care Procedure:: After informed consent was obtained the patient was taken to the endoscopy suite. Sedation ensued after the patient was transferred to the left lateral decubitus position. Pulse, blood pressure, and oxygen saturation were monitored throughout the procedure. Digital rectal exam revealed no significant abnorma lity. The colonoscope was placed in position. The entire colon was evaluated. The colonoscope was carefully removed and the patient was transferred to recovery in stable condition. Please see findings and specimens below for detail. Findings:: Bowel preparation moderate to poor (improved versus prior evaluation) Sigmoid diverticulosis unchanged Sigmoid spasticity and lack of relaxation noted; however, improved versus prior evaluation Polyps (see specimens) Specimens:: Sessile polyp at 50 cm (cold snare) Polyp at 30 cm (cold snare) Adjacent polyps around 10 cm (cold snare) Recommendations:: Timing of repeat colonoscopy is pending pathology but will likely be around 1-2 years secondary to persistent limited bowel preparation, polyps noted on short- term repeat colonoscopy, and persistent spasticity/lack of relaxation. Complications:: No immediate Estimated blood obtained (mL): 1
[2021-03-28 08:22] VITALS: BP 116/62; PULSE 83; RESP 16; TEMP 37.1; O2SAT 95
[2021-03-28 08:32] VITALS: BP 98/66; PULSE 82; RESP 16; O2SAT 97
[2021-03-28 08:42] VITALS: BP 98/58; PULSE 84; RESP 16; O2SAT 97
[2021-03-28 08:52] VITALS: BP 99/62; PULSE 83; RESP 16; O2SAT 98
== END 2021-03-28 08:52 | disposition home or self-care (01) ==
LOC: OUTP 06:33
PROVIDERS: PCP Family Medicine; Visit Provider Surgery
PROC: 0DJD8ZZ Inspection of Lower Intestinal Tract, Via Natural or Artificial Opening Endoscopic (ICD-10-PCS; principal; 2021-03-28 07:30)
DX: Z12.11 Encounter for screening for malignant neoplasm of colon (principal); K62.1 Rectal polyp; K57.30 Diverticulosis of large intestine without perforation or abscess without bleeding; K63.5 Polyp of colon; K58.9 Irritable bowel syndrome, unspecified; Z86.010 Personal history of colon polyps; I25.10 Atherosclerotic heart disease of native coronary artery without angina pectoris; E78.5 Hyperlipidemia, unspecified; I10 Essential (primary) hypertension; I25.2 Old myocardial infarction; Z82.3 Family history of stroke; Z80.9 Family history of malignant neoplasm, unspecified
CPT/HCPCS: 45385; 88305; J2704

== ENCOUNTER → 2021-06-29 08:24 | Outpatient (CLI) | payer MEDICARE, SELFPAY | PROVIDERS: Visit Provider Ophthalmology | DX: Z01.812 Encounter for preprocedural laboratory examination (principal); Z20.822 Contact with and (suspected) exposure to COVID-19 | CPT/HCPCS: U0003 ==

== ENCOUNTER 2021-07-02 09:39 | Day surgery (SDC) | payer MEDICARE, SELFPAY ==
[2021-06-26 14:30] VITALS: BMI 22.4
[2021-07-02 10:40] VITALS: BP 120/68; PULSE 64; RESP 18; TEMP 36.2; O2SAT 94
[2021-07-02 12:06] VITALS: BP 137/65; PULSE 54; RESP 16; O2SAT 96
[2021-07-02 12:11] VITALS: BP 133/68; PULSE 58; RESP 16; O2SAT 96
[2021-07-02 12:16] VITALS: BP 126/60; PULSE 57; RESP 16; O2SAT 99
[2021-07-02 12:21] VITALS: BP 120/57; PULSE 55; RESP 16; O2SAT 99
[2021-07-02 12:25] VITALS: BP 126/70; PULSE 71; RESP 16; TEMP 36.1; O2SAT 96
== END 2021-07-02 12:36 | disposition home or self-care (01) ==
LOC: OR 09:41
PROVIDERS: PCP Family Medicine; Visit Provider Ophthalmology
DX: H25.813 Combined forms of age-related cataract, bilateral (principal); H53.149 Visual discomfort, unspecified; H02.831 Dermatochalasis of right upper eyelid; H02.834 Dermatochalasis of left upper eyelid; Z72.0 Tobacco use; J44.9 Chronic obstructive pulmonary disease, unspecified; I25.10 Atherosclerotic heart disease of native coronary artery without angina pectoris; Z79.82 Long term (current) use of aspirin; Z79.899 Other long term (current) drug therapy
CPT/HCPCS: 66984; V2632

== ENCOUNTER → 2021-07-04 10:22 | Outpatient (CLI) | payer MEDICARE, SELFPAY | PROVIDERS: PCP Family Medicine; Visit Provider Nurse Practitioner Family | DX: Z20.822 Contact with and (suspected) exposure to COVID-19 (principal); U07.1 COVID-19 | CPT/HCPCS: U0003 ==

== ENCOUNTER → 2021-07-22 06:59 | Outpatient (CLI) | payer MEDICARE, SELFPAY | PROVIDERS: Visit Provider Ophthalmology | DX: Z01.812 Encounter for preprocedural laboratory examination (principal); Z20.822 Contact with and (suspected) exposure to COVID-19 | CPT/HCPCS: C9803; U0003; U0005 ==

== ENCOUNTER 2021-07-23 06:04 | Day surgery (SDC) | payer MEDICARE, SELFPAY ==
[2021-07-17 13:44] VITALS: BMI 22.4
[2021-07-23] VITALS (7 sets, daily range): BP systolic 127–144; BP diastolic 67–74; PULSE 70–91; RESP 16; TEMP 36.2–36.3; O2SAT 93–99
== END 2021-07-23 08:32 | disposition home or self-care (01) ==
LOC: OR 06:06
PROVIDERS: PCP Family Medicine; Visit Provider Ophthalmology
DX: H25.813 Combined forms of age-related cataract, bilateral (principal); H53.149 Visual discomfort, unspecified; H02.831 Dermatochalasis of right upper eyelid; H02.834 Dermatochalasis of left upper eyelid; I25.10 Atherosclerotic heart disease of native coronary artery without angina pectoris; J44.9 Chronic obstructive pulmonary disease, unspecified; I25.2 Old myocardial infarction; Z72.0 Tobacco use; Z79.899 Other long term (current) drug therapy
CPT/HCPCS: 66984; V2632

== ENCOUNTER → 2021-11-25 15:12 | Outpatient (CLI) | payer MEDICARE, SELFPAY ==
--- NOTE | 2021-11-25 15:19 | XR_ITS ---
FINAL REPORT CLINICAL HISTORY: RT HIP PAIN FINDINGS: RIGHT HIP Two views of the right hip demonstrate no acute fracture or dislocation. There is a right femoral neck fracture with postoperative change of ORIF. 3 screws are seen through the femoral head and neck. Moderate degenerative changes are seen of the hips bilaterally. Soft tissues are unremarkable. IMPRESSION: Fracture the right femoral neck with postoperative changes of ORIF. Reviewed, Interpreted and Dictated by Sincere Prado III, MD Transcribed by Kenya Martin Authenticated by Sincere Prado III, MD on 11/25/2021 04:09:[address] [facility]
== END ==
PROVIDERS: PCP Family Medicine; Visit Provider Family Medicine
DX: M25.551 Pain in right hip (principal)
CPT/HCPCS: 73502

== ENCOUNTER → 2022-02-25 08:00 | Outpatient (CLI) | payer MEDICARE, SELFPAY ==
--- NOTE | 2022-02-25 08:03 | CT_ITS ---
FINAL REPORT CLINICAL HISTORY: smoker, 1/2 ppd x 45 years copd, cad COMPARISON: February 21, 2019 FINDINGS: Low-Dose Chest CT CTDI vol (mGy): 2.90 DLP (mGy-cm): 95.34 Axial images were obtained from the lung apex to the mid abdomen by computed tomography. Low-dose protocol was utilized. FINDINGS: CHEST: There is no axillary adenopathy. There is no hilar or mediastinal adenopathy. The heart is proper size. There is severe coronary artery calcifications. There is no pericardial or pleural effusion. Limited images of the upper abdomen are unremarkable. Lung window images demonstrate . There is moderate pulmonary scarring. There is a stable 2 mm nodule in the lateral left upper lobe. There is a new posterior right lower lobe nodule measuring 9 mm. IMPRESSION: New 9 mm nodule in the right lower lobe. Lung RADS category 4B. Recommend PET-CT. Reviewed, Interpreted and Dictated by Sincere Prado III, MD Transcribed by Malena Villavicencio Authenticated by Sincere Prado III, MD on 02/25/2022 10:10:37 AM [facility]
--- NOTE | 2022-02-25 08:03 | XR_ITS ---
FINAL REPORT TECHNIQUE: Bone mineral density was calculated of the right forearm, lumbar spine, and hip. CLINICAL HISTORY: .post menopausal h/o rt hip fracture, I did rt forearm to replace rt hip COMPARISON: June 30, 2017 FINDINGS: Using the right forearm, the bone mineral density the 1/3 radius is 0.569 g/cm2, corresponding to T-score of -2.1, consistent with osteopenia. Using L1-4, the bone mineral density of the spine is 0.980 g/cm2, corresponding to T-score of -0.6, which is normal but likely falsely elevated secondary to hypertrophic change. Using the left hip, the bone mineral density of the femoral neck is 0.756 g/cm2, corresponding to a T-score of -1.5, consistent with osteopenia. FRAX 10 year fracture risk is 16% for major osteoporotic fracture. NOTE: T-score: Standard deviation compared with peak bone mass of young adult mean. *Following the recommendations of the International Society of Bone densitometry, classification of hip BMD is based on the lower of two T-scores; total hip or femoral neck. IMPRESSION: Diminished bone mineral density of the right forearm and left hip consistent with osteopenia. Normal bone mineral density of the lumbar spine which is likely falsely elevated due to hypertrophic change. Reviewed, Interpreted and Dictated by Sincere Prado III, MD Transcribed by Karen Ramos Authenticated by Sincere Prado III, MD on 02/25/2022 10:10:38 AM [facility]
== END ==
PROVIDERS: PCP Internal Medicine Adolescent Medicine; Visit Provider Internal Medicine Adolescent Medicine
DX: Z87.891 Personal history of nicotine dependence (principal); Z12.2 Encounter for screening for malignant neoplasm of respiratory organs; Z78.0 Asymptomatic menopausal state
CPT/HCPCS: 71271; 77080

== ENCOUNTER → 2022-03-15 10:13 | Outpatient (CLI) | payer MEDICARE, SELFPAY | PROVIDERS: Visit Provider Surgery | DX: Z01.812 Encounter for preprocedural laboratory examination (principal); Z11.52 Encounter for screening for COVID-19; Z12.11 Encounter for screening for malignant neoplasm of colon; Z86.010 Personal history of colon polyps | CPT/HCPCS: C9803; U0003; U0005 ==

== ENCOUNTER 2022-03-18 06:19 | Day surgery (SDC) | payer MEDICARE, SELFPAY ==
[2022-03-13 15:29] VITALS: BMI 22.2
[2022-03-18 06:34] VITALS: BP 129/75; PULSE 81; RESP 18; TEMP 36.2; O2SAT 95
--- NOTE | 2022-03-18 07:27 | P.PN_ITS ---
[facility] Anesthesia Checklist - Patient Identification Patient Identification: Arm Band - Structural Data Admitted From: Home Planned Operative Procedure/s: colonoscopy Consent for Planned Operative Procedure(s) Verified: Yes Verified Documents: Surgical Consent, History and Physical - NPO Status Verified Time NPO: 00:00 - Additional verifications Anesthesia Reactions: No Hx Blood Transfusions: No Blood Transfusion Reaction: No - Airway Assessment C-Spine Mobility Assessed: Yes (mp2) TMJ Mobility Assessed: Yes Dentition: Good Dentition - Neurological Assessment Level of Consciousness: Awake, Alert - Anesthesia Plan Anesthesia Risk discussed: Yes Anesthesia Plan: Verified ASA Class: III Anesthesia Type: MAC [facility] History I have reviewed the patient's past medical history: Yes Medical History: Reports:: Coronary Artery Disease, Hyperlipidemia, Hypertension, Myocardial Infarction Denies:: Cancer, Diabetes Mellitus Type 1, Diabetes Mellitus Type 2, Internal Pacemaker, MRSA, Seizures *Have you ever received a pneumonia vaccine?: Yes *Have you received a flu vaccine this season?: Yes Other Medical History: Denies: Blood Transfusion Reaction Anesthesia experience/problems:: nac Laterality Cases: Right: Arthroscopy Hip, Other, Bilateral: Cataract Other Surgeries: Yes: Cardiac Catheterization, Colonoscopy, Coronary Stent. No: Pacemaker Amputation: No Fractures: No - *Social History Last grade of school completed: High school graduate Smoking Status: Never smoker Tobacco Type: cigarettes # Packs/Day (cigarettes): 1 Alcohol Intake: never Substance Use Type: denies use, other *Occupational Status:: employed Housing: house Household Members: none *Travel in the last 8 weeks: None Family Hx:: No significant family history
[2022-03-18 07:30] VITALS: O2SAT 95
--- NOTE | 2022-03-18 07:56 | HMH.SCOPE ---
- Procedure: Date: 03/18/22 Patient Date of :: 1945 Procedure Performed:: Colonoscopy (aborted) Indications:: History of colon polyps Colonoscopy March 2021 was noted to have moderate to poor bowel preparation. This was better than prior evaluation. Sigmoid diverticulosis and fairly significant spasticity lack of relaxation encountered. A sessile serrated adenoma at 50 cm was excised and close repeat evaluation recommended. Performing Provider:: Hardeep Riley MD Referring Provider:: . Sedation:: Monitored anesthesia care Procedure:: After informed consent was obtained the patient was taken to the endoscopy suite. Sedation ensued after the patient was transferred to the left lateral decubitus position. Pulse, blood pressure, and oxygen saturation were monitored throughout the procedure. Digital rectal exam revealed no significant abnormality. The colonoscope was placed in position. Poor bowel preparation noted. Advancement beyond the transverse colon was deemed unwarranted secondary to increasingly difficult visualization. The colonoscope was carefully removed and the patient was transferred to recovery in stable condition. Please see findings and specimens below for detail. Findings:: Sigmoid diverticulosis unchanged Bowel preparation poor Colonoscopy aborted secondary to poor bowel preparation Specimens:: None Recommendations:: Gastroenterology consultation recommended secondary to possible chronic constipation/irritable bowel with constipation. Short-term repeat colonoscopy warranted. Repeat colonoscopy deferred to the gastroenterology service. Complications:: Poor bowel preparation Estimated blood obtained (mL): 0
[2022-03-18 08:00] VITALS: BP 86/50; PULSE 69; RESP 18; TEMP 36.2; O2SAT 92
[2022-03-18 08:10] VITALS: BP 101/52; PULSE 63; RESP 18; O2SAT 94
[2022-03-18 08:20] VITALS: BP 100/67; PULSE 73; RESP 18; O2SAT 99
[2022-03-18 08:28] VITALS: BP 117/65; PULSE 66; RESP 18; O2SAT 99
== END 2022-03-18 08:31 | disposition home or self-care (01) ==
LOC: OUTP 06:21
PROVIDERS: PCP Internal Medicine Adolescent Medicine; Visit Provider Surgery
PROC: 0DJD8ZZ Inspection of Lower Intestinal Tract, Via Natural or Artificial Opening Endoscopic (ICD-10-PCS; CPT 45378; principal; 2022-03-18 07:30)
DX: Z12.11 Encounter for screening for malignant neoplasm of colon (principal); Z86.010 Personal history of colon polyps; K57.30 Diverticulosis of large intestine without perforation or abscess without bleeding; I25.10 Atherosclerotic heart disease of native coronary artery without angina pectoris; E78.5 Hyperlipidemia, unspecified; I10 Essential (primary) hypertension; I25.2 Old myocardial infarction; Z79.82 Long term (current) use of aspirin; Z79.899 Other long term (current) drug therapy
CPT/HCPCS: G0104

== ENCOUNTER → 2022-10-13 09:53 | Outpatient (CLI) | payer MEDICARE, SELFPAY ==
--- NOTE | 2022-10-13 09:58 | XR_ITS ---
FINAL REPORT TECHNIQUE: Chest PA & Lateral CLINICAL HISTORY: ACUTE COUGH FOR 1 MONTH, UPPER BACK PAIN, SOA FINDINGS: 2 views of the chest were performed. The heart size is normal. The mediastinum is within normal limits. The lungs are hyperinflated consistent with COPD. There is mild bibasilar atelectasis or scarring. There are no pleural effusions. There is no pneumothorax. The bony thorax appears intact. IMPRESSION: Mild bibasilar atelectasis or scarring. Reviewed, Interpreted and Dictated by Sincere Prado III, MD Transcribed by Kemar Reyes Authenticated and . [facility]
== END ==
LOC: LAB 10-22 13:01 → RAD 10-22 13:02
PROVIDERS: PCP Nurse Practitioner Family; Visit Provider Nurse Practitioner Family
DX: R05.1 Acute cough (principal)
CPT/HCPCS: 71046

== ENCOUNTER → 2023-06-04 12:51 | Outpatient (CLI) | payer MEDICARE, SELFPAY ==
[2023-06-04 14:22] LABS: Alanine Aminotransferase 21 U/L (12-78); Albumin Level 3.8 g/dl (3.5-5.0); Albumin/Globulin Ratio 1.5 (1.1-1.8); Alkaline Phosphatase 111 U/L (38-126); Anion Gap 12.1 mEq/L (5-15); Aspartate Amino Transferase 29 U/L (14-36); Bilirubin,Total 0.3 mg/dl (0.2-1.3); Blood Urea Nitrogen 17 mg/dl (7-17); Calcium 8.3 mg/dl (8.4-10.2); Carbon Dioxide 26 mmol/L (22.0-30.0); Chloride 111 mmol/L (98-107); Chol/HDL Ratio 2.7 (1-3.5); Cholesterol 144 mg/dl (140-200); Estimated Glomerular Filt Rate 70 ml/min (>60); GFR (African American) 84 ML/MIN (>60); Globulin 2.6 g/dL (1.3-3.2); Glucose 111 mg/dl (74-100); HDL Cholesterol 53 mg/dl (40-60); Potassium 4.1 mmoL/L (3.5-5.1); Sodium 145 mmol/L (136-145); Total Protein,Serum 6.4 g/dl (6.3-8.2); Triglycerides 148 mg/dl (30-150); VLDL Cholesterol 30 mg/dL (0-40)
== END ==
PROVIDERS: PCP Nurse Practitioner Family; Visit Provider Internal Medicine Cardiovascular Disease
DX: I25.10 Atherosclerotic heart disease of native coronary artery without angina pectoris (principal)
CPT/HCPCS: 36415; 80053; 80061

== ENCOUNTER 2023-06-13 21:25 | Emergency (ER) | payer MEDICARE, SELFPAY ==
[2023-06-13 21:27] VITALS: BP 160/68; PULSE 68; RESP 16; TEMP 36.9; O2SAT 93; BMI 22.2
[2023-06-13 21:45] VITALS: PULSE 68; O2SAT 92
[2023-06-13 22:00] VITALS: PULSE 69; O2SAT 93
--- NOTE | 2023-06-13 22:11 | XR_ITS ---
PROCEDURE INFORMATION: Exam: XR Right Elbow Exam date and time: 06/13/2023 10:06 PM Age: 78 years old Clinical indication: Pain; Elbow; Right; Additional info: Pop, pain TECHNIQUE: Imaging protocol: Radiologic exam of the right elbow. Views: 1 or 2 views. Total images: 3 COMPARISON: No relevant prior studies available. FINDINGS: Bones/joints: Articular surface irregularity of the radial head is likely degenerative, cannot exclude articular surface fracture. Otherwise, no acute fracture, joint dislocation, or joint effusion. Mild degenerative arthropathy. Tiny enthesophytes at the humeral epicondyles. No concerning bone lesions or calcifications. Soft tissues: Unremarkable soft tissues. IMPRESSION: Possible articular surface fracture of the radial head.
--- NOTE | 2023-06-13 22:11 | XR_ITS ---
PROCEDURE INFORMATION: Exam: XR Right Humerus Exam date and time: 06/13/2023 10:11 PM Age: 78 years old Clinical indication: Pain; Upper arm; Right; Additional info: Pop, pain proximally TECHNIQUE: Imaging protocol: Radiologic exam of the right humerus. Views: 2 or more views. Total images: 2 COMPARISON: CR XR SHOULDER RT MIN 2V 06/13/2023 10:09 PM FINDINGS: Bones/joints: Osteopenia. No acute fracture or joint dislocation. Shoulder and elbow anatomy described separately. No concerning bone lesions or pathologic calcifications. Soft tissues: Unremarkable soft tissues. IMPRESSION: Negative right humerus.
--- NOTE | 2023-06-13 22:12 | XR_ITS ---
PROCEDURE INFORMATION: Exam: XR Right Shoulder Exam date and time: 06/13/2023 10:09 PM Age: 78 years old Clinical indication: Pain; Shoulder; Right; Additional info: Pop, pain TECHNIQUE: Imaging protocol: Radiologic exam of the right shoulder. Views: 2 or more views. Total images: 3 COMPARISON: CR Elbow R 06/13/2023 10:06 PM FINDINGS: Bones/joints: Osteopenia. No acute fracture, joint dislocation, or AC joint separation. Glenohumeral joints Procrit for age. Mild degenerative change and spurring of the AC joint. Subacromial space is maintained. No concerning bone lesions or calcifications. Soft tissues: Unremarkable soft tissues. IMPRESSION: 1. No acute osseous abnormality. 2. Degenerative change AC joint.
--- NOTE | 2023-06-13 22:20 | HMH.EDGENADL ---
Discharge Plan Disposition Patient Disposition: Home, Self-Care Prescriptions Prescriptions: No Action fluticasone propionate [Flonase Allergy Relief] 50 mcg/actuation spray,suspension 2 spray intranasal DAILY 90 Days Qty: 16 2RF Rx Instructions: administer into each nostril azelastine 137 mcg (0.1 %) aerosol,spray 2 spray intranasal HS 90 Days Qty: 30 3RF Rx Instructions: administer into each nostril atenolol 25 MG tablet 25 mg PO DAILY aspirin 81 MG tablet,delayed release (DR/EC) 81 mg PO DAILY simvastatin 20 MG tablet 80 mg PO DAILY Referrals Follow up/Referrals: Pardeep Horton, PT [Physical Therapist] - See instructions (atraumatic right shoulder pain) Noy Flaherty APRN [Primary Care Provider] - See instructions Clinical Impressions Clinical Impression: Pain in right shoulder Qualifiers: Chronicity: acute Qualified Code(s): M25.511 - Pain in right shoulder Right shoulder strain Qualifiers: Encounter type: initial encounter Qualified Code(s): S46.911A - Strain of unspecified muscle, fascia and tendon at shoulder and upper arm level, right arm, initial encounter Discharge ED Provider: Inderjit Bradley General Adult HPI General Chief complaint: Extremity Injury, Upper Stated complaint: RT arm pain Time Seen by Provider: 06/13/23 21:29 Mode of Arrival: Ambulatory Source of Information: Patient Limitations: No Limitations Description of Symptoms (Recalled from ER Triage Doc. by RN): pt reports that she was having pain in the right arm 06/18. 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 pt states that a week ago she had a pop in the same shoulder has had discomfort ever since. pt does have a knot in the bicep area in the right History of Present Illness HPI narrative: This is a 78-year-old female with no relevant medical history presenting with right shoulder pain. 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 She was working at the [employer] today when a similar incident happened. She now states that she feels a knot, in her right bicep. No loss of range of motion. Pain is mild in intensity, does not radiate, made worse with application of pressure and usage, made better by rest. No neurologic deficits, chest pain, shortness of breath, trauma, or any other concerns. Related Data Home Medications Medication Instructions Recorded Confirmed aspirin 81 mg tablet,delayed 81 mg PO DAILY Heart disease 11/06/19 04/15/23 release atenolol 25 mg tablet 25 mg PO DAILY Heart disease 11/06/19 04/15/23 simvastatin 20 mg tablet 80 mg PO DAILY Cholesterol 11/06/19 04/15/23 Previous Rx's Medication Instructions Recorded azelastine 137 mcg (0.1 %) nasal 2 spray intranasal HS 90 days #30 04/15/23 spray aerosol mL fluticasone propionate 50 2 spray intranasal DAILY 90 days 04/15/23 mcg/actuation nasal #16 grams spray,suspension (Flonase Allergy Relief) Allergies Allergy/AdvReac Type Severity Reaction Status Date / Time No Known Allergies Allergy Verified 04/15/23 15:49 [facility] Disclaimer: The information contained in this section may have been updated after the patient was seen, as this information can be updated by other users. Medical History (Updated 06/13/23 @ 22:55 by Inderjit Bradley MD) Allergic rhinitis Chronic cough Dyspnea on exertion Encounter for screening for malignant neoplasm of lung History of 2019 novel coronavirus disease (COVID-19) History of smoking 30 or more pack years Nodule of right lung Surgical History (Updated 04/15/23 @ 15:53 by Joanie Matos) History of hip surgery History of hysterectomy Family History Other No significant family history Social History (Updated 04/15/23 @ 15:50 by Joanie Matos) Smoking St
[2023-06-13 22:59] VITALS: BP 160/68; PULSE 88; RESP 18; TEMP 36.7; O2SAT 95
== END 2023-06-13 23:03 | disposition home or self-care (01) ==
PROVIDERS: Emergency Provider Emergency Medicine; PCP Nurse Practitioner Family
DX: S46.911A Strain of unspecified muscle, fascia and tendon at shoulder and upper arm level, right arm, initial encounter (principal); X50.0XXA Overexertion from strenuous movement or load, initial encounter; Y99.0 Civilian activity done for income or pay; F17.210 Nicotine dependence, cigarettes, uncomplicated
CPT/HCPCS: 73030; 73060; 73070; 99284

== ENCOUNTER → 2023-06-15 07:44 | Outpatient (CLI) | payer MEDICARE, SELFPAY ==
[2023-06-15 08:30] VITALS: PULSE 68; PULSE 72
== END ==
PROVIDERS: PCP Nurse Practitioner Family; Visit Provider Internal Medicine Pulmonary Disease
DX: R06.09 Other forms of dyspnea (principal)
CPT/HCPCS: 94060; 94618; 94640; 94727; 94729

== ENCOUNTER → 2023-06-29 07:11 | Outpatient (CLI) | payer MEDICARE, SELFPAY ==
--- NOTE | 2023-06-29 07:11 | CT_ITS ---
FINAL REPORT CLINICAL HISTORY: lung cancer screening smoker 1/2 ppd x 50 years COMPARISON: 02/25/2022 FINDINGS: CTDI vol (mGy): 2.90 DLP: 101.[address] images of the chest were obtained using the low-dose protocol for screening. Dense coronary artery calcifications are seen. There is a small sliding-type hiatal hernia. There is no evidence of mediastinal or hilar mass or adenopathy. No axillary mass or adenopathy is identified. On the lung window images, a stable, tiny nodule is seen in the periphery of the left upper lobe. Previously seen 9 mm, posterior right lower lobe nodule has resolved. No new mass or nodule is seen. There is chronic scarring at the lung bases. There are also moderate changes of centrilobular emphysema. There is scarring at the left lung apex. Limited imaging of the upper abdomen demonstrates a nonobstructing left renal stone. IMPRESSION: Interval resolution of 9 mm posterior right lower lobe nodule. Stable, tiny nodule in the left lower lobe. Lung RADS category 2. Recommend 12 month followup low-dose CT for further evaluation. Reviewed, Interpreted and Dictated by Carlos Boston MD Transcribed by Kenya Martin Authenticated and [facility]
== END ==
PROVIDERS: PCP Nurse Practitioner Family; Visit Provider Internal Medicine Pulmonary Disease
DX: Z87.891 Personal history of nicotine dependence (principal); Z12.2 Encounter for screening for malignant neoplasm of respiratory organs
CPT/HCPCS: 71271

== ENCOUNTER 2023-07-18 09:16 | Emergency (ER) | payer MEDICARE, SELFPAY ==
[2023-07-18 09:17] VITALS: BP 151/73; PULSE 91; RESP 22; TEMP 36.6; O2SAT 94; BMI 23.3
--- NOTE | 2023-07-18 09:21 | ECG_ITS ---
APPROVED REPORT Exam: Resting ECG HR:88 bpm ECG Measurements Heart Rate 88 AXES DE 147 P 75 QRSd 93 QRS -58 QT 373 T 76 QTc 418 Conclusion SINUS RHYTHM LEFT ANTERIOR FASCICULAR BLOCK [QRS AXIS <= -45, QR IN I, RS IN II] ABNORMAL ECG UNCONFIRMED REPORT Electronically signed by : Dewayne Morejon MD 07/18/2023 21:07:50
[2023-07-18 09:27] VITALS: BMI 23.3
[2023-07-18 09:30] VITALS: BP 122/70; PULSE 89; O2SAT 97
--- NOTE | 2023-07-18 09:36 | XR_ITS ---
PROCEDURE INFORMATION: Exam: XR Chest Exam date and time: 07/18/2023 9:43 AM Age: 78 years old Clinical indication: Shortness of breath; Additional info: SOA, copd HX TECHNIQUE: Imaging protocol: Radiologic exam of the chest. Views: 1 view. COMPARISON: CT LUNG SCREENING 06/29/2023 7:44 AM FINDINGS: Lungs: Interval development of small patchy faint ground-glass opacities mid lung zones possibly infectious in nature. Lung brooks otherwise clear. Pleural spaces: Unremarkable. No pleural effusion. No pneumothorax. Heart/Mediastinum: Unremarkable. No cardiomegaly. Bones/joints: Unremarkable for age. IMPRESSION: Small ground-glass opacities mid lung zones bilaterally possibly infectious in nature.
--- NOTE | 2023-07-18 09:42 | PC.NURSE ---
Dr. Bradley at [facility] for pt eval
--- NOTE | 2023-07-18 09:46 | PC.NURSE ---
RAD at for CXR
[2023-07-18 09:49] LABS: Basophils # 0.1 K/mm3 (0-0.2); Basophils % 0.9 % (0.1-2.0); Eosinophils # 0.4 K/mm3 (0.0-0.4); Eosinophils % 4.2 % (0.1-12.0); Hematocrit 49.3 % (37.0-47.0); Hemoglobin 16.1 g/dL (12.2-16.2); Lymphocytes % 22.4 % (10-50); Mean Corpuscular HGB Conc 32.7 g/dL (31.8-35.4); Mean Corpuscular Hemoglobin 31.9 pg (27.0-31.2); Mean Corpuscular Volume 97.5 fl (81-99); Mean Platelet Volume 8.6 fl (7.4-10.4); Monocytes # 0.7 K/mm3 (0.1-1.0); Monocytes % 7.8 % (1.7-9.3); Neutrophils # 5.9 K/mm3 (1.8-7.8); Neutrophils % 64.6 % (37.0-80.0); Platelet Count 264 K/mm3 (142-424); Red Blood Count 5.05 M/mm3 (4.20-5.40); Red Cell Distribution Width 13.6 % (11.5-17.5); White Blood Count 9.1 K/mm3 (4.8-10.8)
[2023-07-18 09:51] LABS: Chloride 108 mmol/L (98-107)
[2023-07-18 09:52] LABS: Potassium 3.7 mmoL/L (3.5-5.1); Sodium 143 mmol/L (136-145)
[2023-07-18 09:55] LABS: Alanine Aminotransferase 19 U/L (12-78); Albumin Level 4.1 g/dl (3.5-5.0); Albumin/Globulin Ratio 1.2 (1.1-1.8); Alkaline Phosphatase 134 U/L (38-126); Anion Gap 13.7 mEq/L (5-15); Aspartate Amino Transferase 29 U/L (14-36); Bilirubin,Total 0.5 mg/dl (0.2-1.3); Blood Urea Nitrogen 14 mg/dl (7-17); Calcium 9.1 mg/dl (8.4-10.2); Carbon Dioxide 25 mmol/L (22.0-30.0); Creatinine Clearance Estimated 51 mL/min (50-200); Estimated Glomerular Filt Rate 81 ml/min (>60); GFR (African American) 98 ML/MIN (>60); Globulin 3.5 g/dL (1.3-3.2); Glucose 115 mg/dl (74-100); Total Protein,Serum 7.6 g/dl (6.3-8.2)
[2023-07-18 10:00] VITALS: BP 130/67; PULSE 88; O2SAT 94
--- NOTE | 2023-07-18 10:00 | HMH.EDGENADL ---
Discharge Plan Disposition Patient Disposition: Home, Self-Care Prescriptions Prescriptions: New prednisone 20 mg tablet 40 mg PO BID 5 Days Qty: 20 0RF No Action fluticasone propionate [Flonase Allergy Relief] 50 mcg/actuation spray,suspension 2 spray intranasal DAILY 90 Days Qty: 16 2RF Rx Instructions: administer into each nostril azelastine 137 mcg (0.1 %) aerosol,spray 2 spray intranasal HS 90 Days Qty: 30 3RF Rx Instructions: administer into each nostril atenolol 25 MG tablet 25 mg PO DAILY aspirin 81 MG tablet,delayed release (DR/EC) 81 mg PO DAILY simvastatin 20 MG tablet 80 mg PO DAILY Referrals Follow up/Referrals: Noy Flaherty APRN [Primary Care Provider] - See instructions Activity Restrictions/Add. Instructions Additional Instructions/Restrictions: Call your family doctor to establish care for this visit to the emergency department and schedule follow-up within 48 hours to ensure improvement. If you have any worsening of your condition or any other concerning signs or symptoms, return to the emergency department or your primary care doctor for further evaluation. Prednisone daily for 5 days Clinical Impressions Clinical Impression: Bronchitis Discharge ED Provider: Inderjit Bradley General Adult HPI General Chief complaint: Shortness of Breath/Dyspnea Stated complaint: SOA, wheezing Time Seen by Provider: 07/18/23 09:20 Mode of Arrival: Ambulatory Source of Information: Patient Limitations: No Limitations Description of Symptoms (Recalled from ER Triage Doc. by RN): Patient reports being short of breath, rapid pulse, sneezing and wheezing since Thursday. Patient also complains of pain under her shoulder blades. History of Present Illness HPI narrative: Is a 78-year-old female with history of COPD still smoking not on oxygen, DC status post stenting on aspirin presenting with multiple complaints. Patient states that 5 days prior to arrival, she started having sneezing and coughing. Since that time, she has developed a tightness in her chest that feels more like a pressure between her shoulder blades. Nonproductive cough, but states it is a wet cough, I just cannot get anything out. Denies fevers, chills, nausea, vomiting, abdominal pain, diaphoresis, diarrhea, or any other complaints. Related Data Home Medications Medication Instructions Recorded Confirmed aspirin 81 mg tablet,delayed 81 mg PO DAILY Heart disease 11/06/19 06/15/23 release atenolol 25 mg tablet 25 mg PO DAILY Heart disease 11/06/19 06/15/23 simvastatin 20 mg tablet 80 mg PO DAILY Cholesterol 11/06/19 06/15/23 Previous Rx's Medication Instructions Recorded azelastine 137 mcg (0.1 %) nasal 2 spray intranasal HS 90 days #30 04/15/23 spray aerosol mL fluticasone propionate 50 2 spray intranasal DAILY 90 days 04/15/23 mcg/actuation nasal #16 grams spray,suspension (Flonase Allergy Relief) prednisone 20 mg tablet 40 mg PO BID 5 days #20 tabs 07/18/23 Allergies Allergy/AdvReac Type Severity Reaction Status Date / Time No Known Allergies Allergy Verified 06/15/23 15:27 [facility] Disclaimer: The information contained in this section may have been updated after the patient was seen, as this information can be updated by other users. Medical History (Updated 07/18/23 @ 10:51 by Inderjit Bradley MD) Allergic rhinitis Chronic cough Dyspnea on exertion Encounter for screening for malignant neoplasm of lung History of 2019 novel coronavirus disease (COVID-19) History of smoking 30 or more pack years Nodule of right lung Surgical History History of hip surgery History of hysterectomy Family History Other No significant family history Social History Smoking Status: Unknown if ever smoked second hand exposure: Yes
--- NOTE | 2023-07-18 10:19 | PC.NURSE ---
Respiratory notified of VBG order.
[2023-07-18 10:22] LABS: Troponin I < 0.01 ng/ml (0.00-0.034)
--- NOTE | 2023-07-18 10:22 | PC.NURSE ---
pt placed on O2 at 2L per NC at this time r/t Sa02 88-90% on RA pt reports feeling better after neb treatment and ready to go home , notified still waiting on a couple of labs to come back, pt verbalized understanding Notified primary RN Katerine and Dr. Bradley.
[2023-07-18 10:26] LABS: VBG Base Excess -0.3 mmol/L (-2.4-2.3); VBG HCO3 24.7 mmol/L (23-30); VBG Oxygen Saturation 65.6 % (50-70); VBG PCO2 42.5 mmol/L (35-51); VBG PH 7.38 mmol/L (7.31-7.41); VBG PO2 31.6 mmol/L (28-40); VBG Total CO2 26.1 mmol/L (23-27)
[2023-07-18 10:30] VITALS: BP 135/75; PULSE 78; O2SAT 95
[2023-07-18 10:43] LABS: Procalcitonin 0.062 ng/mL (0.0-2.0)
[2023-07-18 11:03] VITALS: BP 145/98; PULSE 78; RESP 20; TEMP 36.7; O2SAT 96
== END 2023-07-18 11:05 | disposition home or self-care (01) ==
PROVIDERS: Emergency Provider Emergency Medicine; PCP Nurse Practitioner Family
DX: J40 Bronchitis, not specified as acute or chronic (principal); R06.02 Shortness of breath; J44.9 Chronic obstructive pulmonary disease, unspecified; I25.2 Old myocardial infarction; Z87.891 Personal history of nicotine dependence
CPT/HCPCS: 71045; 80053; 82803; 84145; 84484; 85025; 93005; 96374; 99285

== ENCOUNTER → 2023-07-29 12:58 | Outpatient (CLI) | payer MEDICARE, SELFPAY | PROVIDERS: PCP Nurse Practitioner Family; Visit Provider Nurse Practitioner Family | DX: J44.1 Chronic obstructive pulmonary disease with (acute) exacerbation (principal); R50.9 Fever, unspecified | CPT/HCPCS: 87070; 87205 ==

== ENCOUNTER → 2023-09-04 16:18 | Outpatient (CLI) | payer MEDICARE, SELFPAY ==
--- NOTE | 2023-09-04 16:23 | XR_ITS ---
PROCEDURE INFORMATION: Exam: XR Chest Exam date and time: 09/04/2023 4:27 PM Age: 78 years old Clinical indication: Cough and dyspnea; Additional info: SOA. Smoker x 58 years TECHNIQUE: Imaging protocol: Radiologic exam of the chest. Views: 2 views. COMPARISON: CR XR CHEST PORTABLE 07/18/2023 9:43 AM FINDINGS: Lungs: Normal. Pleural spaces: Normal No pleural effusion. No pneumothorax. Heart/Mediastinum: Normal. No cardiomegaly. Vasculature: Tortuous atherosclerotic thoracic aorta. Bones/joints: Unremarkable. IMPRESSION: No acute findings.
== END ==
PROVIDERS: PCP Nurse Practitioner Family; Visit Provider Nurse Practitioner Family
DX: R06.02 Shortness of breath (principal)
CPT/HCPCS: 71046

== ENCOUNTER 2023-10-17 20:45 | Emergency (ER) | payer OTHER, MEDICARE, SELFPAY ==
[2023-10-17 20:46] VITALS: BP 173/94; PULSE 73; RESP 16; TEMP 36.6; O2SAT 94; BMI 22.2
--- NOTE | 2023-10-17 20:49 | PC.NURSE ---
in room talking with patient at this time.
--- NOTE | 2023-10-17 20:50 | CT_ITS ---
PROCEDURE INFORMATION: Exam: CT Head Without Contrast Exam date and time: 10/17/2023 8:59 PM Age: 78 years old Clinical indication: Injury or trauma; Fall; Additional info: Fall on blood thinners TECHNIQUE: Imaging protocol: Computed tomography of the head without contrast. Total images: 518 Radiation optimization: All CT scans at this facility use at least one of these dose optimization techniques: automated exposure control; mA and/or kV adjustment per patient size (includes targeted exams where dose is matched to clinical indication); or iterative reconstruction. REPORTING DATA: Count of CT and Cardiac NM exams in prior 12 months: This patient has received [address] and 0 known cardiac nuclear medicine studies in the 12 months prior to the current study. COMPARISON: CR (C SPINE LAT, CSPINE, C SPINE LAT) 05/30/2019 10:34 AM FINDINGS: Brain: No acute intracranial hemorrhage, midline shift, or mass. Mild cortical and cerebellar atrophy. Mild periventricular and scattered subcortical white matter hypodensity compatible with remote small vessel ischemia. Santos-white interface is maintained. Basilar cisterns are preserved. Additional remote deep white matter ischemic changes bilateral internal capsules. Cerebral ventricles: Mild ventricular prominence compatible degree of central involution. Paranasal sinuses: Moderate mucosal thickening base of the left maxillary sinus. Mastoid air cells: Trace bilateral mastoid effusions. Orbital cavities: Status post bilateral orbital lens replacement. Bones/joints: Osteopenia. No skull fracture. Soft tissues: No scalp hematoma. Vasculature: Severe calcifications bilateral intracranial internal carotid arteries. IMPRESSION: 1. No acute intracranial process. 2. Chronic intracranial findings. 3. Trace bilateral mastoid effusions. 4. Moderate mucosal thickening base of the left maxillary sinus.
--- NOTE | 2023-10-17 20:50 | CT_ITS ---
PROCEDURE INFORMATION: Exam: CT Cervical Spine Without Contrast Exam date and time: 10/17/2023 9:01 PM Age: 78 years old Clinical indication: Injury or trauma; Fall; Additional info: Fall, neck pain TECHNIQUE: Imaging protocol: Computed tomography of the cervical spine without contrast. Total images: 267 Radiation optimization: All CT scans at this facility use at least one of these dose optimization techniques: automated exposure control; mA and/or kV adjustment per patient size (includes targeted exams where dose is matched to clinical indication); or iterative reconstruction. REPORTING DATA: Count of CT and Cardiac NM exams in prior 12 months: This patient has received [address] and 0 known cardiac nuclear medicine studies in the 12 months prior to the current study. COMPARISON: CR (C SPINE LAT, CSPINE, C SPINE LAT) 05/30/2019 10:34 AM FINDINGS: Bones/joints: Osteopenia. Maintained lordosis. Vertebral body height and alignment is preserved. The base of the dens and the C1 and C2 articulations are maintained with moderate degenerative arthropathy. The cervicooccipital junction is intact. The facet joints are appropriately aligned. There is fusion of the right C2-C3 articular facet. Severe degenerate facet joint spondylosis on the right at C3-C4. Moderate scattered degenerative facet joint spondylosis throughout the remainder of the cervical spine. Posterior elements are intact. Moderate degenerative disc disease greatest at C4-C5 and C5-C6. Mild degenerative disc changes remainder of the cervical spine. No critical spinal canal stenosis. No concerning bone lesions. Mild disc bulge C3-C4. Mastoid air cells: Trace bilateral mastoid effusions. Prevertebral and retropharyngeal spaces: No prevertebral soft tissue swelling. Lungs: Scarring left lung apex. [id number] upper lobe centrilobular emphysema. Vasculature: Mild calcification left carotid artery bifurcation. Soft tissues: Unremarkable soft tissues of the neck. IMPRESSION: 1. No acute cervical fracture or traumatic subluxation. 2. Degenerative changes as described. 3. Upper lobe emphysema.
--- NOTE | 2023-10-17 20:51 | HMH.EDGENADL ---
Discharge Plan Disposition Patient Disposition: Home, Self-Care Prescriptions Prescriptions: No Action fluticasone propionate [Flonase Allergy Relief] 50 mcg/actuation spray,suspension 2 spray intranasal DAILY 90 Days Qty: 16 2RF Rx Instructions: administer into each nostril azelastine 137 mcg (0.1 %) aerosol,spray 2 spray intranasal HS 90 Days Qty: 30 3RF Rx Instructions: administer into each nostril prednisone 20 mg tablet 40 mg PO BID 5 Days Qty: 20 0RF atenolol 25 MG tablet 25 mg PO DAILY aspirin 81 MG tablet,delayed release (DR/EC) 81 mg PO DAILY simvastatin 20 MG tablet 80 mg PO DAILY Referrals Follow up/Referrals: Noy Flaherty APRN [Primary Care Provider] - See instructions Activity Restrictions/Add. Instructions Additional Instructions/Restrictions: Please follow-up with your primary care provider. Please return to the emergency department if you develop any new or worsening symptoms or become concerned for your health. Clinical Impressions Clinical Impression: Acute head trauma, Acute neck pain Discharge ED Provider: Joby Arnett General Adult HPI General Chief complaint: Fall Stated complaint: [id number] Time Seen by Provider: 10/17/23 20:47 History of Present Illness HPI narrative: 78-year-old female, history of daily aspirin use for coronary artery disease status post stents presents after a fall from standing while at work. She tripped over a mat and fell directly forward hitting her head on the wall. She reports neck/shoulder pain since that time. Denies current headache. Denies any chest pain abdominal pain pelvic pain or extremity pain. Related Data Home Medications Medication Instructions Recorded Confirmed aspirin 81 mg tablet,delayed 81 mg PO DAILY Heart disease 11/06/19 06/15/23 release atenolol 25 mg tablet 25 mg PO DAILY Heart disease 11/06/19 06/15/23 simvastatin 20 mg tablet 80 mg PO DAILY Cholesterol 11/06/19 06/15/23 Previous Rx's Medication Instructions Recorded azelastine 137 mcg (0.1 %) nasal 2 spray intranasal HS 90 days #30 04/15/23 spray aerosol mL fluticasone propionate 50 2 spray intranasal DAILY 90 days 04/15/23 mcg/actuation nasal #16 grams spray,suspension (Flonase Allergy Relief) prednisone 20 mg tablet 40 mg PO BID 5 days #20 tabs 07/18/23 Allergies Allergy/AdvReac Type Severity Reaction Status Date / Time No Known Allergies Allergy Verified 06/15/23 15:27 [facility] Disclaimer: The information contained in this section may have been updated after the patient was seen, as this information can be updated by other users. Medical History (Updated 10/17/23 @ 21:52 by Joby Arnett MD) Allergic rhinitis Chronic cough Dyspnea on exertion Encounter for screening for malignant neoplasm of lung History of 2019 novel coronavirus disease (COVID-19) History of smoking 30 or more pack years Nodule of right lung Surgical History History of hip surgery History of hysterectomy Family History Other No significant family history Social History Smoking Status: Current every day smoker tobacco type: cigarettes packs per day: 1 second hand exposure: Yes alcohol intake: never substance use type: denies use and other current occupational status: employed Travel in the last 8 weeks: None household members: none housing: house 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 current occupational exposures/hazards: No caffeine: Yes ROS Obtained: Yes All systems reviewed & no additional complaints except as documented Physical Exam General General appearance: alert and in no apparent distress Head Head exam: atraumatic and normocephalic Eye Eye exam: Present normal appearance, PERRL and EOMI ENT ENT exam: Present normal oropharynx and normal ex
[2023-10-17 21:05] VITALS: PULSE 70; O2SAT 96
--- NOTE | 2023-10-17 21:17 | PC.NURSE ---
rounded on patient; Call light within reach of patient
[2023-10-17 21:30] VITALS: BP 135/76; PULSE 65; O2SAT 93
[2023-10-17 22:06] VITALS: BP 135/76; PULSE 65; RESP 16; TEMP 36.6; O2SAT 94
== END 2023-10-17 22:08 | disposition home or self-care (01) ==
PROVIDERS: Emergency Provider Emergency Medicine; PCP Nurse Practitioner Family
DX: S09.8XXA Other specified injuries of head, initial encounter (principal); M54.2 Cervicalgia; I25.10 Atherosclerotic heart disease of native coronary artery without angina pectoris; F17.210 Nicotine dependence, cigarettes, uncomplicated; J30.9 Allergic rhinitis, unspecified; Z95.5 Presence of coronary angioplasty implant and graft; W01.198A Fall on same level from slipping, tripping and stumbling with subsequent striking against other object, initial encounter
CPT/HCPCS: 70450; 72125; 99285

== ENCOUNTER 2024-06-30 15:22 | Outpatient (CLI) | payer MEDICARE, SELFPAY ==
--- NOTE | 2024-06-30 15:22 | CT_ITS ---
FINAL REPORT TECHNIQUE: Axial CT images of the chest were obtained without contrast. Low-dose protocol was utilized. This study was performed with techniques to keep radiation doses as low as reasonably achievable (ALARA). Individualized dose reduction techniques using automated exposure control or adjustment of mA and/or kV according to the patient's size were employed. CLINICAL HISTORY: lung cancer screening smoker 59 years, 1/2 ppd copd COMPARISON: 06/29/2023 FINDINGS: CT CHEST WITHOUT, LOW DOSE SCREENING CT Di Vol: 2.90 mGy DLP: 103.16 mGy*cm There is no axillary, mediastinal, or hilar adenopathy. The heart size is normal. There are dense coronary artery calcifications. There is no pleural or pericardial effusion. There are moderate changes of centrilobular emphysema. The lung windows show a tiny nodule in the periphery of the left upper lobe best seen on image 26 of series 4. There is also a tiny nodule in the anterior right middle lobe well-seen on image 56 of series 4. These nodules are stable compared to the prior study. There is atelectasis noted at the lung bases. Scarring is noted in the medial left apex. There is a moderate hiatal hernia. Limited images of the upper abdomen demonstrate no acute finding. IMPRESSION: Nodules in the left upper lobe and right middle lobe, stable. Advanced changes of centrilobular emphysema. LR Category 2: 12 month follow-up low-dose chest CT is recommended. Reviewed, Interpreted and Dictated by Carlos Boston MD Transcribed by Aleyda Wagner Authenticated and [facility]
== END 2024-06-30 23:59 | disposition home or self-care (01) ==
LOC: RAD 15:22
PROVIDERS: PCP Nurse Practitioner Family; Visit Provider Internal Medicine Pulmonary Disease
DX: F17.210 Nicotine dependence, cigarettes, uncomplicated (principal)
CPT/HCPCS: 71271

== ENCOUNTER 2024-11-16 11:40 | Inpatient (IN) | payer MEDICARE, SELFPAY ==
[2024-11-16] VITALS (16 sets, daily range): BP systolic 134–182; BP diastolic 75–109; PULSE 78–93; RESP 16–20; TEMP 36.7–37.3; O2SAT 91–95; BMI 22.2
--- NOTE | 2024-11-16 11:36 | ECG_ITS ---
APPROVED REPORT Exam: Resting ECG HR:85 bpm ECG Measurements Heart Rate 85 AXES MS 150 P -24 QRSd 99 QRS -53 QT 394 T 82 QTc 437 Conclusion SINUS RHYTHM LEFT ANTERIOR FASCICULAR BLOCK [QRS AXIS <= -45, QR IN I, RS IN II] MODERATE ST DEPRESSION [0.05+ mV ST DEPRESSION] ABNORMAL ECG INTERPRETATION BASED ON A DEFAULT AGE OF 40 YEARS UNCONFIRMED REPORT Electronically signed by : MIRZA BARRIGA, 11/18/2024 05:46:09
--- NOTE | 2024-11-16 11:41 | ECG_ITS ---
APPROVED REPORT Exam: Resting ECG HR:86 bpm ECG Measurements Heart Rate 86 AXES QRSd 98 QRS -51 QT 385 T 35 QTc 429 Conclusion SUPRAVENTRICULAR RHYTHM LEFT ANTERIOR FASCICULAR BLOCK [QRS AXIS <= -45, QR IN I, RS IN II] ST DEPRESSION, CONSIDER SUBENDOCARDIAL INJURY [0.1+ mV ST DEPRESSION] ABNORMAL ECG UNCONFIRMED REPORT Electronically signed by : MIRZA BARRIGA, 11/18/2024 05:46:22
--- NOTE | 2024-11-16 11:48 | XR_ITS ---
FINAL REPORT CLINICAL HISTORY: Shortness of breath, cp COMPARISON: 09/04/2023 FINDINGS: The heart size is normal. The mediastinum is normal. There is a small hiatal hernia. Mild chronic changes are noted in the lungs. There is no focal infiltrate or edema. There are no pleural effusions. There is no pneumothorax. There is no osseous abnormality. IMPRESSION: Chronic changes without acute cardiopulmonary process Reviewed, Interpreted and Dictated by Carlos Boston MD Transcribed by Aleyda Wagner Authenticated and [facility]
--- NOTE | 2024-11-16 11:50 | [facility].EDCP ---
Discharge Plan Disposition Patient Disposition: Home, Self-Care Condition: Undetermined Clinical Impressions Clinical Impression: NSTEMI (non-ST elevated myocardial infarction) Discharge ED Provider: Yasmany Matias [facility] <Kaylin Mares MD - Last Filed: 11/16/24 15:38> General Chief Complaint: Chest Pain Stated Complaint: Chest pain Time Seen by Provider: 11/16/24 11:43 Mode of Arrival: EMS Source of Information: Patient Limitations: No Limitations Description of Symptoms (Recalled from ER Triage Doc. by RN): Pt presents with c/o chest pain that started suddenly 30-40 minutes [employer] It is left sided in nature and radiates to her Left jaw and back. Pt has a hx of heart stents x2. IV 20G LAC VSS History of Present Illness HPI narrative: Patient is a 79-year-old female presenting with chest pain. Patient has history of COPD and CAD s/p 2 cardiac stents years ago. Patient is on aspirin. Patient called EMS due to tightness across her chest, and both arms and left jaw. Patient developed a coarse cough yesterday. Patient does not wear oxygen at home. Patient denies fevers, chills, headache, blurred vision, trauma. Patient denies history of DVT. Related Data Home Medications ?Medication ?Instructions ?Recorded ?Confirmed aspirin 81 mg tablet,delayed 81 mg PO DAILY 11/06/19 11/16/24 release atenolol 25 mg tablet 25 mg PO DAILY 11/06/19 11/16/24 albuterol sulfate 90 mcg/actuation 2 puff inhalation Q6HP PRN 11/16/24 11/17/24 aerosol inhaler SHORTNESS OF AIR Previous Rx's ?Medication ?Instructions ?Recorded azelastine 137 mcg (0.1 %) nasal 2 spray intranasal HS 90 days #30 04/15/23 spray mL fluticasone furoate 100 1 inh inhalation DAILY #90 ea 02/04/24 mcg-vilanterol 25 mcg/dose inhalation powder (Breo Ellipta) atorvastatin 40 mg tablet 40 mg PO HS #0 tabs 11/18/24 nicotine 21 mg/24 hr daily 21 mg transdermal DAILYP PRN 11/18/24 transdermal patch Nicotine Cravings #0 ea Allergies Allergy/AdvReac Type Severity Reaction Status Date / Time No Known Allergies Allergy Verified 02/04/24 13:28 PFSH <Kaylin Mares MD - Last Filed: 11/16/24 15:38> [facility] Disclaimer: The information contained in this section may have been updated after the patient was seen, as this information can be updated by other users. Medical History (Updated 11/18/24 @ 09:29 by Mariel Trammell APRN) HFrEF (heart failure with reduced ejection fraction) Abnormal echocardiogram Hyperlipidemia Hypertension History of AK (myocardial infarction) Coronary artery disease History of left heart catheterization Urinary tract infection Pneumonia History of COVID-19 COPD (chronic obstructive pulmonary disease) Encounter for screening for malignant neoplasm of lung Nodule of right lung Allergic rhinitis Chronic cough History of smoking 30 or more pack years History of 2019 novel coronavirus disease (COVID-19) Dyspnea on exertion Surgical History History of hip surgery History of hysterectomy Family History Other No significant family history Social History Smoking Status: Current every day smoker tobacco type: cigarettes packs per day: 1 second hand exposure: Yes alcohol intake: never substance use type: denies use and other current occupational status: employed Travel in the last 8 weeks: None household members: none housing: house 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 current occupational exposures/hazards: No caffeine: Yes Have you lived/traveled outside [place] in past 30 days?: No Contact w/someone who lives/traveled outside US past 30 days?: No Exposure to someone with infectious disease in past 14 days?: No Do you have a fever (greater than 100.4 F or 38 C)?: No Have you tested positive for COVID-19: No Exposed to someone with COVID-19 in past 14 days?: No Do you have a sore throat?: No Do you have a cough?: No Do you have any weakness?: No Are you experiencing any nausea/vomitting?: No Do you have any diarrhea?: No Are you experiencing any unusual bleeding?: No Do you have any muscle aches/pain?: No Do you have any abdominal pain?: No Are you experiencing loss of taste or smell?: No Other Medical History Have you received the Flu Vaccine for this season: Yes Have you received the Pneumonia Vaccine: Yes <Kaylin Mares MD - Last Filed: 11/16/24 15:38> ROS Obtained: Yes All systems reviewed & no additional complaints except as documented Physical Exam <Kaylin Mares MD - Last Filed: 11/16/24 15:38> General General appearance: alert and in no apparent distress Neck Neck exam: Present full ROM Respiratory Respiratory exam: Present normal lung sounds bilaterally (2L NC) Cardiovascular Cardiovascular exam: Present regular rate, normal rhythm and normal heart sounds Abdominal Exam Abdominal exam: Present soft; Absent distention or tenderness Extremities Exam Extremities exam: Present full ROM; Absent edema Neurological Exam Neurological exam: Present alert and oriented X3 HEART Score <Kaylin Mares MD - Last Filed: 11/16/24 15:38> HEART Score HEART Score assessment performed?: Yes History (anamnesis): Moderately suspicious ECG: Non-specific disturbance Age: >65 years Risk factors: Atherosclerosis history Troponin: </= normal limit HEART Score: 6 <Yasmany Matias MD - Last Filed: 11/18/24 22:07> HEART Score HEART Score: 6 Critical Care <Kaylin Mares MD - Last Filed: 11/16/24 15:38> Critical Care Time Critical Care Time: No Medical Decision Making <Kaylin Mares MD - Last Filed: 11/16/24 15:38> Medical Records Medical records reviewed: Yes I reviewed the patient's medical records. Abhishek Inquiry Pt receiving controlled substance: No Abhishek was queried for this patient: No Vital Signs Vital Signs: 11/16/24 11:40 11/16/24 12:00 11/16/24 12:29 Temperature 99.1 F Temperature Source Oral Pulse Rate 83 78 Pulse Rate [Left Radial] 88 Respiratory Rate 18 Blood Pressure 134/77 148/78 H Blood Pressure [Right Arm] 140/80 Blood Pressure Mean [Right Arm] 100 Blood Pressure Source Blood Pressure Source [Right Arm] Automatic Cuff Blood Pressure Position [Right Arm] Sitting 02 Sat by Pulse Oximetry 93 L 95 93 L Oxygen Delivery Method Room Air Nasal Cannula Oxygen Flow Rate (LPM) 2 11/16/24 13:00 11/16/24 14:01 11/16/24 14:30 Temperature Temperature Source Pulse Rate 82 90 84 Pulse Rate [Left Radial] Respiratory Rate Blood Pressure 142/75 H 172/88 H 170/93 H Blood Pressure [Right Arm] Blood Pressure Mean [Right Arm] Blood Pressure Source Blood Pressure Source [Right Arm] Blood Pressure Position [Right Arm] 02 Sat by Pulse Oximetry 94 L 92 L 91 L Oxygen Delivery Method Nasal Cannula Nasal Cannula Oxygen Flow Rate (LPM) 2 2 11/16/24 14:45 11/16/24 15:30 11/16/24 15:44 Temperature Temperature Source Pulse Rate 80 83 86 Pulse Rate [Left Radial] Respiratory Rate 20 Blood Pressure 164/93 H 178/94 H Blood Pressure [Right Arm] Blood Pressure Mean [Right Arm] Blood Pressure Source Blood Pressure Source [Right Arm] Blood Pressure Position [Right Arm] 02 Sat by Pulse Oximetry 92 L 93 L 94 L Oxygen Delivery Method Oxygen Flow Rate (LPM) 11/16/24 16:00 11/16/24 16:30 11/16/24 17:00 Temperature Temperature Source Pulse Rate 88 81 Pulse Rate [Left Radial] Respiratory Rate 18 18 18 Blood Pressure 163/86 H 174/93 H 153/109 H Blood Pressure [Right Arm] Blood Pressure Mean [Right Arm] Blood Pressure Source Blood Pressure Source [Right Arm] Blood Pressure Position [Right Arm] 02 Sat by Pulse Oximetry 91 L 92 L Oxygen Delivery Method Oxygen Flow Rate (LPM) 11/16/24 17:28 Temperature 98.1 F Temperature Source Oral Pulse Rate 80 Pulse Rate [Left Radial] Respiratory Rate 20 Blood Pressure 163/90 H Blood Pressure [Right Arm] Blood Pressure Mean [Right Arm] Blood Pressure Source Automatic Cuff Blood Pressure Source [Right Arm] Blood Pressure Position [Right Arm] 02 Sat by Pulse Oximetry Oxygen Delivery Method Room Air Oxygen Flow Rate (LPM) Lab Data Lab results reviewed: Yes I reviewed the patient's lab results. Labs: Lab Results 11/16/24 11:18: WBC 9.0, RBC 4.74, Hgb 15.5, Hct 44.8, MCV 94.5, MCH 32.7 H, MCHC 34.6, RDW 13.2, Plt Count 237, MPV 10.2, Neut % (Auto) 61.6, Lymph % (Auto) 26.7, Sherman % (Auto) 8.2, Eos % (Auto) 2.7, Baso % (Auto) 0.6, Neut # (Auto) 5.5, Lymph # (Auto) 2.4, Sherman # (Auto) 0.7, Eos # (Auto) 0.2, Baso # (Auto) 0.1, D-Dimer 0.96 H, Sodium 138, Potassium 3.6, Chloride 105, Carbon Dioxide 26, Anion Gap 10.6, BUN 9, Creatinine 0.70, Estimated Creat Clear 48, Estimated GFR 81, Est GFR ( Amer) 98, Glucose 149 H, Calcium 8.7, Troponin I < 0.01 11/16/24 12:00: SARS-CoV-2 (PCR) Not detected, Influenza A Untype (PCR) Not detected, Influenza Type B (PCR) Not detected 11/16/24 14:58: Troponin I 0.60 H 11/18/24 06:23 11/18/24 06:23 Response Orders (Tests/Meds): ED MEDICATIONS Discontinued Medications Generic Name Dose Route Start Last Admin Trade Name Freq PRN Reason Stop Dose Admin Acetaminophen 650 mg 11/17/24 09:52 11/17/24 10:02 Acetaminophen 325mg Tab PO 12/17/24 09:51 650 mg Q4HP PRN Administration Fever or Mild Pain (1-3) Albuterol/Ipratropium 3 ml 11/16/24 18:58 11/17/24 10:41 Ipratropium/Albuterol 3 Ml Neb IH 12/16/24 18:57 3 ml Q6HP PRN Administration Shortness Of Breath Aspirin 81 mg 11/17/24 09:00 11/18/24 08:21 Aspirin Ec 81mg Tablet PO 12/17/24 08:59 81 mg DAILY ANNALISA Administration Atenolol 25 mg 11/17/24 09:00 11/18/24 08:21 Atenolol 25mg Tablet PO 12/17/24 08:59 25 mg DAILY ANNALISA Administration Atorvastatin Calcium 40 mg 11/16/24 21:00 11/17/24 20:40 Atorvastatin 40mg Tablet PO 12/16/24 20:59 40 mg HS ANNALISA Administration Clopidogrel Bisulfate 600 mg 11/16/24 18:49 11/16/24 18:56 Clopidogrel 300mg Tablet PO 11/16/24 18:50 600 mg ONCE ONE Administration Clopidogrel Bisulfate 75 mg 11/17/24 09:00 11/17/24 08:20 Clopidogrel 75mg Tab PO 12/17/24 08:59 75 mg DAILY ANNALISA Administration Diphenhydramine HCl 50 mg 11/17/24 10:28 11/17/24 11:19 Diphenhydramine 50mg/Ml Vial IV 11/17/24 10:29 50 mg ONCE ONE Administration Enalaprilat 0.625 mg 11/16/24 18:51 11/16/24 18:56 Enalaprilat 2.5mg/2ml Vial IV 11/16/24 18:52 0.625 mg ONCE ONE Administration Enoxaparin Sodium 65 mg 11/16/24 19:13 11/16/24 19:29 Enoxaparin 100mg/Ml Syringe 1 mg/kg (65 mg) 11/16/24 19:14 65 mg SUBCUT Administration Q12H ONE Enoxaparin Sodium 60 mg 11/17/24 08:00 11/18/24 08:21 Enoxaparin 60mg/0.6ml Syringe SUBCUT 12/17/24 07:59 60 mg Q12H ANNALISA Administration Fentanyl Citrate 50 mcg 11/17/24 10:35 11/17/24 12:41 Fentanyl 100mcg/2ml Vial IV 11/17/24 22:35 75 mcg Q3MINP PRN Administration Sedation Fentanyl Citrate 25 mcg 11/17/24 10:35 Fentanyl 100mcg/2ml Vial IV 11/17/24 22:35 Q3MINP PRN Sedation Flumazenil 0.2 mg 11/17/24 10:35 Flumazenil 0.1mg/Ml 5ml Vial IV 11/17/24 22:35 NEEDED PRN Sedation Furosemide 40 mg 11/18/24 07:40 11/18/24 08:21 Furosemide 40mg/4ml Vial IV 11/18/24 07:41 40 mg ONCE ONE Administration Heparin Sodium (Porcine) 10,000 unit 11/17/24 10:35 11/17/24 11:19 Heparin 1,000 Units/Ml 10ml Vial (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) IV 11/17/24 14:35 6,400 unit NEEDED PRN Administration [employer] Heparin Sodium/Sodium Chloride 3,000 unit 11/17/24 10:35 11/17/24 13:46 Heparin 1,000 Units/500ml Ns (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) IV 11/17/24 10:36 Not Given ONCE ONE Hydralazine HCl 20 mg 11/17/24 10:35 Hydralazine 20mg/Ml Vial IV 11/17/24 14:35 ONCE PRN sbp>160 Adenosine 180 mg/ Sodium 90 mls @ 346.68 mls/hr 11/17/24 10:35 Chloride IV 11/17/24 14:35 ONCE PRN fractional flow reserve 180 MCG/KG/MIN Adenosine 90 mg/ Sodium 90 mls @ 693.36 mls/hr 11/17/24 10:35 Chloride IV 11/17/24 14:35 ONCE PRN fractional flow reserve 180 MCG/KG/MIN Sodium Chloride 1,000 mls @ 25 mls/hr 11/17/24 10:45 11/17/24 11:31 Sod Chloride 0.9% 500ml Bag IV 11/18/24 10:36 25 mls/hr .Q25H ANNALISA Administration Iopamidol 70 ml 11/16/24 13:34 11/16/24 13:34 Iopamidol-370 (76%);100ml Bottle IV 11/16/24 13:35 70 ml ONCE ONE Administration Iopamidol 105 ml 11/17/24 13:45 11/17/24 13:46 Iopamidol-370 (76%);100ml Bottle IV 11/17/24 13:46 105 ml ONCE ONE Administration Labetalol HCl 20 mg 11/17/24 10:35 Labetalol 20mg/4ml Syringe IV 11/17/24 14:35 ONCE PRN sbp>160 Lidocaine HCl 20 ml 11/17/24 10:35 11/17/24 11:18 Lidocaine 1% 10ml Mdv IJ 11/17/24 10:36 10 ml ONCE ONE Administration Lidocaine HCl 20 ml 11/17/24 10:35 11/17/24 13:47 Lidocaine 1% 5ml Pf Vial IJ 11/17/24 10:36 Not Given ONCE ONE Midazolam HCl 1 mg 11/17/24 10:35 Midazolam 2mg/2ml Vial IV 11/17/24 22:35 Q3MINP PRN Sedation Midazolam HCl 1 mg 11/17/24 10:35 11/17/24 12:41 Midazolam Hcl 1mg/Ml 5ml Vial IV 11/17/24 22:35 4 mg Q3MINP PRN Administration Sedation Miscellaneous 1 each 11/17/24 12:42 Consider Pt For Dual Antiplatelet Therapy At Discharge-Stent NOTAPPLIC 12/17/24 12:41 NEEDED PRN Reminder for s/p stent Morphine Sulfate 2 mg 11/16/24 12:00 11/16/24 12:01 Morphine 4mg/Ml Syringe IV 11/16/24 12:01 2 mg ONCE ONE Administration Morphine Sulfate 2 mg 11/16/24 17:09 Morphine 2mg/Ml Syringe IV 12/16/24 17:08 Q4HP PRN Severe Pain (7-10) Naloxone HCl 0.4 mg 11/17/24 10:35 Naloxone 0.4mg/Ml Vial IV 11/17/24 22:35 Q5MINP PRN Decreased Respirations Nicotine 21 mg 11/16/24 17:09 Nicotine 21mg/24hr Patch TD 12/16/24 17:08 DAILYP PRN Nicotine Cravings Nitroglycerin 0.4 mg 11/17/24 00:19 11/16/24 23:20 Nitroglycerin 0.4mg Sl Tablet SL 12/17/24 00:18 0.4 mg Q5MINP PRN Administration Chest Pain Nitroglycerin 800 mcg 11/17/24 10:35 Nitroglycerin 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 11/17/24 14:35 NEEDED PRN [employer] Nitroglycerin 0.4 mg 11/17/24 12:42 Nitroglycerin 0.4mg Sl Tablet SL 12/17/24 12:41 Q5MINP PRN Chest Pain Ondansetron HCl 4 mg 11/17/24 00:19 11/16/24 23:20 Ondansetron 4mg/2ml Vial IV 12/17/24 00:18 4 mg Q6HP PRN Administration Nausea Protamine Sulfate 50 mg 11/17/24 10:35 Protamine Sulfate 50mg/5ml Vial (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) IV 11/17/24 14:35 ONCE PRN act>200 Fluticasone/Salmeterol 1 puff 11/17/24 18:00 11/18/24 06:56 Fluticasone/Salmeterol 250/50mcg Diskus IH 12/17/24 17:59 1 puff BIDRT ANNALISA Administration Sodium Chloride 50 ml 11/16/24 13:34 11/16/24 13:34 0.9 % Sodium Chloride 50 Ml Vial IV 11/16/24 13:35 50 ml ONCE ONE Administration Sodium Chloride 10 ml 11/16/24 13:34 11/16/24 13:34 Sodium Chloride 0.9% 10ml Syr (Rad Only) IV 11/16/24 13:35 10 ml ONCE ONE Administration Sodium Chloride 3 ml 11/17/24 09:07 Sodium Chloride 3% 15ml Neb IH 12/17/24 09:06 ONCE PRN INDUCE SPUTUM COLLECTION Sodium Chloride 10 ml 11/17/24 10:35 Sodium Chloride 0.9% 10ml Flush Syringe IV 12/17/24 10:34 NEEDED PRN Maintain IV Site Verapamil HCl 2.5 mg 11/17/24 10:35 11/17/24 11:17 Verapamil 2.5mg/Ml 2ml Vial IV 11/17/24 10:36 2.5 mg ONCE ONE Administration ORDERS Category Date Time Status CT angio chest PE protocol Stat Cat Scan 11/16/24 13:19 Completed Cardiology Consult [Consult to Cardiology] [CONS] Cons 11/16/24 17:09 Active Routine CXR --portable [XR chest portable] Stat Exams 11/16/24 11:48 Completed BMP [Basic Metabolic Panel] Stat Lab 11/16/24 11:18 Completed CBC w/Auto Diff [Complete Blood Count Auto Diff] Stat Lab 11/16/24 11:18 Completed Complete Blood Count Auto Diff AMLAB Lab 11/17/24 06:39 Completed Comprehensive Metabolic Panel AMLAB Lab 11/17/24 06:39 Completed D-Dimer Stat Lab 11/16/24 11:18 Completed Magnesium AMLAB Lab 11/17/24 06:39 Completed Rapid PCR Covid and Flu A/B Stat Lab 11/16/24 12:00 Completed Trop I [Troponin I] Stat Lab 11/16/24 11:18 Completed Troponin I Q3H Lab 11/16/24 14:58 Completed Troponin I Q3H Lab 11/16/24 18:04 Completed MDM Narrative Medical Decision Narrative: In summary, this is a 79-year-old female presenting with chest pain and shortness of air. Differential diagnosis includes but is not limited to, ACS, PE, COPD exacerbation, viral URI, among others. Patient treated with nitro and aspirin enroute to the hospital but continues to complain of pain. Patient managed with IV morphine. Patient evaluated with CBC, BMP, troponin, D-dimer, EKG, CXR. Patient's labs significant for elevated D-dimer at 0.96, CT PE ordered. Patient's CBC/BMP unremarkable. Initial troponin <0.01. Initial EKG demonstrated significant artifact, repeat performed approximately 5 minutes later and demonstrated normal sinus rhythm with a rate of 85, no QTc prolongation, no significant ST elevation/depression. Upon reevaluation, patient's pain had largely resolved. Patient CT PE personally reviewed by me and negative for evidence of PE, pericardial effusion, pleural effusion or consolidative pneumonia. Patient's chronic emphysematous changes are observed. Patient taken off 2 L nasal cannula and maintained oxygen saturations above 95%. Patient's repeat Troponin increased from 0.01 to 0.60. Repeat EKG ordered. At this time, patient care turned over to oncoming provider pending repeat EKG. <Yasmany Matias MD - Last Filed: 11/18/24 22:07> Vital Signs Vital Signs: 11/16/24 11:40 11/16/24 12:00 11/16/24 12:29 Temperature 99.1 F Temperature Source Oral Pulse Rate 83 78 Pulse Rate [Left Radial] 88 Respiratory Rate 18 Blood Pressure 134/77 148/78 H Blood Pressure [Right Arm] 140/80 Blood Pressure Mean [Right Arm] 100 Blood Pressure Source Blood Pressure Source [Right Arm] Automatic Cuff Blood Pressure Position [Right Arm] Sitting 02 Sat by Pulse Oximetry 93 L 95 93 L Oxygen Delivery Method Room Air Nasal Cannula Oxygen Flow Rate (LPM) 2 11/16/24 13:00 11/16/24 14:01 11/16/24 14:30 Temperature Temperature Source Pulse Rate 82 90 84 Pulse Rate [Left Radial] Respiratory Rate Blood Pressure 142/75 H 172/88 H 170/93 H Blood Pressure [Right Arm] Blood Pressure Mean [Right Arm] Blood Pressure Source Blood Pressure Source [Right Arm] Blood Pressure Position [Right Arm] 02 Sat by Pulse Oximetry 94 L 92 L 91 L Oxygen Delivery Method Nasal Cannula Nasal Cannula Oxygen Flow Rate (LPM) 2 2 11/16/24 14:45 11/16/24 15:30 11/16/24 15:44 Temperature Temperature Source Pulse Rate 80 83 86 Pulse Rate [Left Radial] Respiratory Rate 20 Blood Pressure 164/93 H 178/94 H Blood Pressure [Right Arm] Blood Pressure Mean [Right Arm] Blood Pressure Source Blood Pressure Source [Right Arm] Blood Pressure Position [Right Arm] 02 Sat by Pulse Oximetry 92 L 93 L 94 L Oxygen Delivery Method Oxygen Flow Rate (LPM) 11/16/24 16:00 11/16/24 16:30 11/16/24 17:00 Temperature Temperature Source Pulse Rate 88 81 Pulse Rate [Left Radial] Respiratory Rate 18 18 18 Blood Pressure 163/86 H 174/93 H 153/109 H Blood Pressure [Right Arm] Blood Pressure Mean [Right Arm] Blood Pressure Source Blood Pressure Source [Right Arm] Blood Pressure Position [Right Arm] 02 Sat by Pulse Oximetry 91 L 92 L Oxygen Delivery Method Oxygen Flow Rate (LPM) 11/16/24 17:28 Temperature 98.1 F Temperature Source Oral Pulse Rate 80 Pulse Rate [Left Radial] Respiratory Rate 20 Blood Pressure 163/90 H Blood Pressure [Right Arm] Blood Pressure Mean [Right Arm] Blood Pressure Source Automatic Cuff Blood Pressure Source [Right Arm] Blood Pressure Position [Right Arm] 02 Sat by Pulse Oximetry Oxygen Delivery Method Room Air Oxygen Flow Rate (LPM) Lab Data Labs: Lab Results 11/16/24 11:18: WBC 9.0, RBC 4.74, Hgb 15.5, Hct 44.8, MCV 94.5, MCH 32.7 H, MCHC 34.6, RDW 13.2, Plt Count 237, MPV 10.2, Neut % (Auto) 61.6, Lymph % (Auto) 26.7, Sherman % (Auto) 8.2, Eos % (Auto) 2.7, Baso % (Auto) 0.6, Neut # (Auto) 5.5, Lymph # (Auto) 2.4, Sherman # (Auto) 0.7, Eos # (Auto) 0.2, Baso # (Auto) 0.1, D-Dimer 0.96 H, Sodium 138, Potassium 3.6, Chloride 105, Carbon Dioxide 26, Anion Gap 10.6, BUN 9, Creatinine 0.70, Estimated Creat Clear 48, Estimated GFR 81, Est GFR ( Amer) 98, Glucose 149 H, Calcium 8.7, Troponin I < 0.01 11/16/24 12:00: SARS-CoV-2 (PCR) Not detected, Influenza A Untype (PCR) Not detected, Influenza Type B (PCR) Not detected 11/16/24 14:58: Troponin I 0.60 H Response Orders (Tests/Meds): ED MEDICATIONS Discontinued Medications Generic Name Dose Route Start Last Admin Trade Name Freq PRN Reason Stop Dose Admin Acetaminophen 650 mg 11/17/24 09:52 11/17/24 10:02 Acetaminophen 325mg Tab PO 12/17/24 09:51 650 mg Q4HP PRN Administration Fever or Mild Pain (1-3) Albuterol/Ipratropium 3 ml 11/16/24 18:58 11/17/24 10:41 Ipratropium/Albuterol 3 Ml Neb IH 12/16/24 18:57 3 ml Q6HP PRN Administration Shortness Of Breath Aspirin 81 mg 11/17/24 09:00 11/18/24 08:21 Aspirin Ec 81mg Tablet PO 12/17/24 08:59 81 mg DAILY ANNALISA Administration Atenolol 25 mg 11/17/24 09:00 11/18/24 08:21 Atenolol 25mg Tablet PO 12/17/24 08:59 25 mg DAILY ANNALISA Administration Atorvastatin Calcium 40 mg 11/16/24 21:00 11/17/24 20:40 Atorvastatin 40mg Tablet PO 12/16/24 20:59 40 mg HS ANNALISA Administration Clopidogrel Bisulfate 600 mg 11/16/24 18:49 11/16/24 18:56 Clopidogrel 300mg Tablet PO 11/16/24 18:50 600 mg ONCE ONE Administration Clopidogrel Bisulfate 75 mg 11/17/24 09:00 11/17/24 08:20 Clopidogrel 75mg Tab PO 12/17/24 08:59 75 mg DAILY ANNALISA Administration Diphenhydramine HCl 50 mg 11/17/24 10:28 11/17/24 11:19 Diphenhydramine 50mg/Ml Vial IV 11/17/24 10:29 50 mg ONCE ONE Administration Enalaprilat 0.625 mg 11/16/24 18:51 11/16/24 18:56 Enalaprilat 2.5mg/2ml Vial IV 11/16/24 18:52 0.625 mg ONCE ONE Administration Enoxaparin Sodium 65 mg 11/16/24 19:13 11/16/24 19:29 Enoxaparin 100mg/Ml Syringe 1 mg/kg (65 mg) 11/16/24 19:14 65 mg SUBCUT Administration Q12H ONE Enoxaparin Sodium 60 mg 11/17/24 08:00 11/18/24 08:21 Enoxaparin 60mg/0.6ml Syringe SUBCUT 12/17/24 07:59 60 mg Q12H ANNALISA Administration Fentanyl Citrate 50 mcg 11/17/24 10:35 11/17/24 12:41 Fentanyl 100mcg/2ml Vial IV 11/17/24 22:35 75 mcg Q3MINP PRN Administration Sedation Fentanyl Citrate 25 mcg 11/17/24 10:35 Fentanyl 100mcg/2ml Vial IV 11/17/24 22:35 Q3MINP PRN Sedation Flumazenil 0.2 mg 11/17/24 10:35 Flumazenil 0.1mg/Ml 5ml Vial IV 11/17/24 22:35 NEEDED PRN Sedation Furosemide 40 mg 11/18/24 07:40 11/18/24 08:21 Furosemide 40mg/4ml Vial IV 11/18/24 07:41 40 mg ONCE ONE Administration Heparin Sodium (Porcine) 10,000 unit 11/17/24 10:35 11/17/24 11:19 Heparin 1,000 Units/Ml 10ml Vial (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) IV 11/17/24 14:35 6,400 unit NEEDED PRN Administration Emergency [employer] Heparin Sodium/Sodium Chloride 3,000 unit 11/17/24 10:35 11/17/24 13:46 Heparin 1,000 Units/500ml Ns (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) IV 11/17/24 10:36 Not Given ONCE ONE Hydralazine HCl 20 mg 11/17/24 10:35 Hydralazine 20mg/Ml Vial IV 11/17/24 14:35 ONCE PRN sbp>160 Adenosine 180 mg/ Sodium 90 mls @ 346.68 mls/hr 11/17/24 10:35 Chloride IV 11/17/24 14:35 ONCE PRN fractional flow reserve 180 MCG/KG/MIN Adenosine 90 mg/ Sodium 90 mls @ 693.36 mls/hr 11/17/24 10:35 Chloride IV 11/17/24 14:35 ONCE PRN fractional flow reserve 180 MCG/KG/MIN Sodium Chloride 1,000 mls @ 25 mls/hr 11/17/24 10:45 11/17/24 11:31 Sod Chloride 0.9% 500ml Bag IV 11/18/24 10:36 25 mls/hr .Q25H ANNALISA Administration Iopamidol 70 ml 11/16/24 13:34 11/16/24 13:34 Iopamidol-370 (76%);100ml Bottle IV 11/16/24 13:35 70 ml ONCE ONE Administration Iopamidol 105 ml 11/17/24 13:45 11/17/24 13:46 Iopamidol-370 (76%);100ml Bottle IV 11/17/24 13:46 105 ml ONCE ONE Administration Labetalol HCl 20 mg 11/17/24 10:35 Labetalol 20mg/4ml Syringe IV 11/17/24 14:35 ONCE PRN sbp>160 Lidocaine HCl 20 ml 11/17/24 10:35 11/17/24 11:18 Lidocaine 1% 10ml Mdv IJ 11/17/24 10:36 10 ml ONCE ONE Administration Lidocaine HCl 20 ml 11/17/24 10:35 11/17/24 13:47 Lidocaine 1% 5ml Pf Vial IJ 11/17/24 10:36 Not Given ONCE ONE Midazolam HCl 1 mg 11/17/24 10:35 Midazolam 2mg/2ml Vial IV 11/17/24 22:35 Q3MINP PRN Sedation Midazolam HCl 1 mg 11/17/24 10:35 11/17/24 12:41 Midazolam Hcl 1mg/Ml 5ml Vial IV 11/17/24 22:35 4 mg Q3MINP PRN Administration Sedation Miscellaneous 1 each 11/17/24 12:42 Consider Pt For Dual Antiplatelet Therapy At Discharge-Stent NOTAPPLIC 12/17/24 12:41 NEEDED PRN Reminder for s/p stent Morphine Sulfate 2 mg 11/16/24 12:00 11/16/24 12:01 Morphine 4mg/Ml Syringe IV 11/16/24 12:01 2 mg ONCE ONE Administration Morphine Sulfate 2 mg 11/16/24 17:09 Morphine 2mg/Ml Syringe IV 12/16/24 17:08 Q4HP PRN Severe Pain (7-10) Naloxone HCl 0.4 mg 11/17/24 10:35 Naloxone 0.4mg/Ml Vial IV 11/17/24 22:35 Q5MINP PRN Decreased Respirations Nicotine 21 mg 11/16/24 17:09 Nicotine 21mg/24hr Patch TD 12/16/24 17:08 DAILYP PRN Nicotine Cravings Nitroglycerin 0.4 mg 11/17/24 00:19 11/16/24 23:20 Nitroglycerin 0.4mg Sl Tablet SL 12/17/24 00:18 0.4 mg Q5MINP PRN Administration Chest Pain Nitroglycerin 800 mcg 11/17/24 10:35 Nitroglycerin 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 11/17/24 14:35 NEEDED PRN [employer] Nitroglycerin 0.4 mg 11/17/24 12:42 Nitroglycerin 0.4mg Sl Tablet SL 12/17/24 12:41 Q5MINP PRN Chest Pain Ondansetron HCl 4 mg 11/17/24 00:19 11/16/24 23:20 Ondansetron 4mg/2ml Vial IV 12/17/24 00:18 4 mg Q6HP PRN Administration Nausea Protamine Sulfate 50 mg 11/17/24 10:35 Protamine Sulfate 50mg/5ml Vial (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) IV 11/17/24 14:35 ONCE PRN act>200 Fluticasone/Salmeterol 1 puff 11/17/24 18:00 11/18/24 06:56 Fluticasone/Salmeterol 250/50mcg Diskus IH 12/17/24 17:59 1 puff BIDRT ANNALISA Administration Sodium Chloride 50 ml 11/16/24 13:34 11/16/24 13:34 0.9 % Sodium Chloride 50 Ml Vial IV 11/16/24 13:35 50 ml ONCE ONE Administration Sodium Chloride 10 ml 11/16/24 13:34 11/16/24 13:34 Sodium Chloride 0.9% 10ml Syr (Rad Only) IV 11/16/24 13:35 10 ml ONCE ONE Administration Sodium Chloride 3 ml 11/17/24 09:07 Sodium Chloride 3% 15ml Neb IH 12/17/24 09:06 ONCE PRN INDUCE SPUTUM COLLECTION Sodium Chloride 10 ml 11/17/24 10:35 Sodium Chloride 0.9% 10ml Flush Syringe IV 12/17/24 10:34 NEEDED PRN Maintain IV Site Verapamil HCl 2.5 mg 11/17/24 10:35 11/17/24 11:17 Verapamil 2.5mg/Ml 2ml Vial IV 11/17/24 10:36 2.5 mg ONCE ONE Administration ORDERS Category Date Time Status CT angio chest PE protocol Stat Cat Scan 11/16/24 13:19 Completed Cardiology Consult [Consult to Cardiology] [CONS] Cons 11/16/24 17:09 Active Routine CXR --portable [XR chest portable] Stat Exams 11/16/24 11:48 Completed BMP [Basic Metabolic Panel] Stat Lab 11/16/24 11:18 Completed CBC w/Auto Diff [Complete Blood Count Auto Diff] Stat Lab 11/16/24 11:18 Completed Complete Blood Count Auto Diff AMLAB Lab 11/17/24 06:39 Completed Comprehensive Metabolic Panel AMLAB Lab 11/17/24 06:39 Completed D-Dimer Stat Lab 11/16/24 11:18 Completed Magnesium AMLAB Lab 11/17/24 06:39 Completed Rapid PCR Covid and Flu A/B Stat Lab 11/16/24 12:00 Completed Trop I [Troponin I] Stat Lab 11/16/24 11:18 Completed Troponin I Q3H Lab 11/16/24 14:58 Completed Troponin I Q3H Lab 11/16/24 18:04 Completed MDM Narrative Medical Decision Narrative: In summary, this is a 79-year-old female presenting with chest pain and shortness of air. Differential diagnosis includes but is not limited to, ACS, PE, COPD exacerbation, viral URI, among others. Patient treated with nitro and aspirin enroute to the hospital but continues to complain of pain. Patient managed with IV morphine. Patient evaluated with CBC, BMP, troponin, D-dimer, EKG, CXR. Patient's labs significant for elevated D-dimer at 0.96, CT PE ordered. Patient's CBC/BMP unremarkable. Initial troponin <0.01. Initial EKG demonstrated significant artifact, repeat performed approximately 5 minutes later and demonstrated normal sinus rhythm with a rate of 85, no QTc prolongation, no significant ST elevation/depression. Upon reevaluation, patient's pain had largely resolved. Patient CT PE personally reviewed by me and negative for evidence of PE, pericardial effusion, pleural effusion or consolidative pneumonia. Patient's chronic emphysematous changes are observed. Patient taken off 2 L nasal cannula and maintained oxygen saturations above 95%. Patient's repeat Troponin increased from 0.01 to 0.60. Repeat EKG ordered. At this time, patient care turned over to oncoming provider pending repeat EKG. Yasmany Matias MD SIVA: I assumed care of this patient from the previous emergency medicine physician. Given concern for NSTEMI, cardiology was consulted who recommended admission to the hospital. Patient was accepted for admission by hospitalist.
[2024-11-16 11:54] LABS: Basophils # 0.1 K/mm3 (0-0.2); Basophils % 0.6 % (0.1-2.0); Eosinophils # 0.2 K/mm3 (0.0-0.4); Eosinophils % 2.7 % (0.1-12.0); Hematocrit 44.8 % (37.0-47.0); Hemoglobin 15.5 g/dL (12.2-16.2); Lymphocytes # 2.4 K/mm3 (0.7-4.5); Lymphocytes % 26.7 % (10-50); Mean Corpuscular HGB Conc 34.6 g/dL (31.8-35.4); Mean Corpuscular Hemoglobin 32.7 pg (27.0-31.2); Mean Corpuscular Volume 94.5 fl (81-99); Mean Platelet Volume 10.2 fl (7.4-10.4); Monocytes # 0.7 K/mm3 (0.1-1.0); Monocytes % 8.2 % (1.7-9.3); Neutrophils # 5.5 K/mm3 (1.8-7.8); Neutrophils % 61.6 % (37.0-80.0); Platelet Count 237 K/mm3 (142-424); Red Blood Count 4.74 M/mm3 (4.20-5.40); Red Cell Distribution Width 13.2 % (11.5-17.5)
[2024-11-16] MEDS: MORPHINE 4MG/ML SYRINGE 2 MG IV (12:01)
[2024-11-16 12:02] LABS: Coronavirus 19, PCR Not Detected (NotDetected); Influenza A, PCR Not Detected (NotDetected); Influenza B, PCR Not Detected (NotDetected)
[2024-11-16 12:05] LABS: Anion Gap 10.6 mEq/L (5-15); Blood Urea Nitrogen 9 mg/dl (7-17); Calcium 8.7 mg/dl (8.4-10.2); Carbon Dioxide 26 mmol/L (22.0-30.0); Chloride 105 mmol/L (98-107); Creatinine Clearance Estimated 48 mL/min (50-200); Estimated Glomerular Filt Rate 81 ml/min (>60); GFR (African American) 98 ML/MIN (>60); Glucose 149 mg/dl (74-100); Potassium 3.6 mmoL/L (3.5-5.1); Sodium 138 mmol/L (136-145)
[2024-11-16 12:09] LABS: D-Dimer 0.96 ug/mL (0.0-0.5)
[2024-11-16 12:18] LABS: Troponin I < 0.01 ng/ml (0.00-0.034)
--- NOTE | 2024-11-16 13:19 | CT_ITS ---
FINAL REPORT TECHNIQUE: The patient was injected with IV contrast. Axial images were obtained through the chest in a PE protocol. 3-D reconstruction images were also performed. Individualized dose reduction techniques using automated exposure control or adjustment of the MA and/or KV according to patient's size were employed. CLINICAL HISTORY: SOA, CP, elevated d-dimer COMPARISON: LDCT dated 06/30/2024 FINDINGS: Mediastinal vasculature is adequately opacified. No pulmonary artery filling defects are identified to suggest PE. There is no aortic dissection. There is no axillary adenopathy. There is no hilar or mediastinal adenopathy. A moderate-sized hiatal hernia is present. The heart size is normal. Moderate changes of centrilobular emphysema are present. There is no pericardial or pleural effusion. Limited images of the upper abdomen demonstrate a benign-appearing cyst in the anterior margin of the left kidney. No suspicious infiltrate or nodule is identified. Mild scarring or atelectasis is present at the lung bases. IMPRESSION: No pulmonary embolus or dissection. Moderate changes of centrilobular emphysema. Reviewed, Interpreted and Dictated by Carlos Boston MD Transcribed by Ruthy Dunn Authenticated and . [facility]
[2024-11-16] MEDS: IOPAMIDOL-370 (76%);100ML BOTTLE 70 ML IV (13:34)
[2024-11-16] MEDS: 0.9 % SODIUM CHLORIDE 50 ML VIAL IV (13:34)
[2024-11-16] MEDS: SODIUM CHLORIDE 0.9% 10ML SYR (RAD ONLY) 10 ML IV (13:34)
--- NOTE | 2024-11-16 15:36 | PC.NURSE ---
Dr. Mares notified of critical troponin. Re-peat EKG order.
--- NOTE | 2024-11-16 15:40 | ECG_ITS ---
APPROVED REPORT Exam: Resting ECG HR:81 bpm ECG Measurements Heart Rate 81 AXES TN 138 P 0 QRSd 100 QRS -40 QT 393 T 64 QTc 430 Conclusion SINUS RHYTHM LEFT AXIS DEVIATION [QRS AXIS < -30] SEPTAL MYOCARDIAL INFARCTION , PROBABLY OLD [40+ ms Q WAVE IN V1/V2] ABNORMAL ECG UNCONFIRMED REPORT Electronically signed by : MIRZA BARRIGA, 11/18/2024 05:43:26
--- NOTE | 2024-11-16 16:33 | PC.NURSE ---
DR KENNEDY SPEAKING WITH DR SUAZO
--- NOTE | 2024-11-16 16:43 | PC.NURSE ---
hs aware of admission
--- NOTE | 2024-11-16 17:11 | EXP.HP ---
History of Present Illness *Admission Date: 11/16/24 *Reason for visit:: Chest pain *History of present illness: Ms. Rivera is a 79-year-old female with history of heart cath 24 years ago, long history of tobacco use, COPD, on no oxygen at home. Presented to the ER because of onset of chest pain suddenly at rest earlier today at approximately 11:00. Her nephew who is a doctor gave her sublingual nitro and aspirin, had no significant improvement in pain. States the pain was in her arms and radiated up her neck. Denies any palpitations today. Previous FL over 20 years ago had chest pain, has never had arm pain before. Denies any exertion. Has been feeling more fatigued and dyspneic with exertion over the past 2 weeks. On presentation to the ER, initiated on 2 L oxygen for comfort. EKG obtained showing no ischemic changes. Initial troponin less than 0.01. Repeat troponin showed a bump to 0.6. Cardiology was consulted, recommended admission for NSTEMI and evaluation in the morning. Medicine consulted for admission. On arrival to the floor, patient is improved and on room air. In no acute distress. Does have dry nonproductive cough. States she has been coughing for about a week. Works in a [employer], feels she has had a viral infection. COVID and flu negative on presentation. Denies any current chest pain. Tolerating dinner without difficulty. Alert and oriented x 4. Cardiac history as follows: -Non-Q wave FL 02/25/2001. -Left heart cath performed with distal lateral wall hypokinesis. Total occlusion of major obtuse marginal reduced to 0% with stent - 02/2004, abnormal Cardiolite GXT -October 2004 PTCA/brachytherapy of mid circumflex with in-stent restenosis. -10/2019, echo with EF 45% -12/2019 Cardiolite within normal limits with EF of 67% [facility] Disclaimer: The information contained in this section may have been updated after the patient was seen, as this information can be updated by other users. Medical History (Updated 11/16/24 @ 18:54 by Brian Hill MD) History of left heart catheterization Urinary tract infection Pneumonia History of COVID-19 COPD (chronic obstructive pulmonary disease) Encounter for screening for malignant neoplasm of lung Nodule of right lung Allergic rhinitis Chronic cough History of smoking 30 or more pack years History of 2019 novel coronavirus disease (COVID-19) Dyspnea on exertion Surgical History History of hip surgery History of hysterectomy Family History Other No significant family history Social History Smoking Status: Current every day smoker tobacco type: cigarettes packs per day: 1 second hand exposure: Yes alcohol intake: never substance use type: denies use and other current occupational status: employed Travel in the last 8 weeks: None household members: none housing: house 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 current occupational exposures/hazards: No caffeine: Yes Have you lived/traveled outside [place] in past 30 days?: No Contact w/someone who lives/traveled outside US past 30 days?: No Exposure to someone with infectious disease in past 14 days?: No Do you have a fever (greater than 100.4 F or 38 C)?: No Have you tested positive for COVID-19: No Exposed to someone with COVID-19 in past 14 days?: No Do you have a sore throat?: No Do you have a cough?: No Do you have any weakness?: No Are you experiencing any nausea/vomitting?: No Do you have any diarrhea?: No Are you experiencing any unusual bleeding?: No Do you have any muscle aches/pain?: No Do you have any abdominal pain?: No Are you experiencing loss of taste or smell?: No Other Medical History Have you received the Flu Vaccine for this season: Yes Have you received the Pneumonia Vaccine: Yes Review of Systems Review of Systems Review of systems (narrative): 14 point review of systems performed, pertinent positives and negatives as per HPI Meds Home Medications and Allergies Home Medications ?Medication ?Instructions ?Recorded ?Confirmed ?Type aspirin 81 mg tablet,delayed 81 mg PO DAILY Heart disease 11/06/19 11/16/24 History release atenolol 25 mg tablet 25 mg PO DAILY Heart disease 11/06/19 11/16/24 History simvastatin 20 mg tablet 80 mg PO DAILY Cholesterol 11/06/19 11/16/24 History azelastine 137 mcg (0.1 %) nasal 2 spray intranasal HS 90 days #30 04/15/23 11/16/24 Rx spray mL fluticasone furoate 100 1 inh inhalation DAILY #90 ea 02/04/24 11/16/24 Rx mcg-vilanterol 25 mcg/dose inhalation powder (Breo Ellipta) albuterol sulfate 90 mcg/actuation See Rx Instructions .Route .COMPLEX 11/16/24 11/16/24 History aerosol inhaler New Prescriptions to Start Prescriptions: Allergies Allergy/AdvReac Type Severity Reaction Status Date / Time No Known Allergies Allergy Verified 02/04/24 13:28 Exam Data for Last 24 hours Vital signs and Labs for Last 24 Hours: Temp Pulse Resp BP Pulse Ox O2 Del Method O2 Flow Rate 99.1 F 81 18 153/109 H 92 L Nasal Cannula 2 11/16/24 11:40 11/16/24 16:30 11/16/24 17:00 11/16/24 17:00 11/16/24 16:30 11/16/24 14:30 11/16/24 14:30 Laboratory Results - last 24 hr 11/16/24 11:18: WBC 9.0, RBC 4.74, Hgb 15.5, Hct 44.8, MCV 94.5, MCH 32.7 H, MCHC 34.6, RDW 13.2, Plt Count 237, MPV 10.2, Neut % (Auto) 61.6, Lymph % (Auto) 26.7, [place] % (Auto) 8.2, Eos % (Auto) 2.7, Baso % (Auto) 0.6, Neut # (Auto) 5.5, Lymph # (Auto) 2.4, [place] # (Auto) 0.7, Eos # (Auto) 0.2, Baso # (Auto) 0.1, D-Dimer 0.96 H, Sodium 138, Potassium 3.6, Chloride 105, Carbon Dioxide 26, Anion Gap 10.6, BUN 9, Creatinine 0.70, Estimated Creat Clear 48, Estimated GFR 81, Est GFR ( Amer) 98, Glucose 149 H, Calcium 8.7, Troponin I < 0.01 11/16/24 12:00: SARS-CoV-2 (PCR) Not detected, Influenza A Untype (PCR) Not detected, Influenza Type B (PCR) Not detected 11/16/24 14:58: Troponin I 0.60 H I & O for Last 24 hours: Intake & Output 11/13/24 11/14/24 11/15/24 11/16/24 23:59 23:59 23:59 23:59 Weight 64.41 kg Constitutional Constitutional: no acute distress, average body habitus, chronically ill appearing and cooperative *Routine HEENT Exam Head: Present normocephalic Eye: Present EOMI and PERRL ENT: Present mucous membranes moist *Routine Neck Exam Neck: Present supple; Absent lymphadenopathy *Routine Respiratory Exam Respiratory: Present CTA bilaterally and crackles (Fine in bases); Absent respiratory distress, rhonchi, stridor or wheezes Comments: Dry cough *Routine Cardiovascular Exam Cardiovascular: Present RRR *Routine Abdominal Exam Abdominal: Present soft and normoactive bowel sounds; Absent tenderness *Routine Rectal Exam Rectal:: deferred *Routine Genitalia Exam Genitalia:: deferred *Routine Extremities Exam Extremities: Absent cyanosis, clubbing or edema *Routine Skin Exam Skin: Present warm; Absent rash *Routine Neurological Exam Neurological: Present alert, oriented X3 and moving all extremities; Absent altered mental status Assessment and Plan *Assessment and plan (1) NSTEMI (non-ST elevated myocardial infarction): Status: Acute Category: Medical Code(s): I21.4 - Non-ST elevation (NSTEMI) myocardial infarction (2) History of FL (myocardial infarction): Status: Acute Category: Medical Code(s): I25.2 - Old myocardial infarction (3) Coronary artery disease: Status: Acute Category: Medical Code(s): I25.10 - Atherosclerotic heart disease of [place] coronary artery without angina pectoris (4) History of smoking 30 or more pack years: Status: Chronic Category: Social Hx Code(s): Z87.891 - Personal history of nicotine dependence (5) Tobacco use disorder: Status: Acute Category: Medical Code(s): F17.200 - Nicotine dependence, unspecified, uncomplicated (6) COPD (chronic obstructive pulmonary disease): Status: Chronic Category: Medical Code(s): J44.9 - Chronic obstructive pulmonary disease, unspecified Plan 79-year-old female with history of COPD and previous FL status post stenting 20 years ago. Presents with onset of chest pain at rest. Concern for NSTEMI. Serial troponins showing elevation. Discussed case with ER physician, request admission for cardiology evaluation and likely heart cath in the morning. I agreed to admit for further management. Patient chest pain-free at this time. No nausea or vomiting. Alert and oriented x 4. N.p.o. at midnight for heart cath. Problems addressed as follows: NSTEMI History of FL CAD -Presented with anginal equivalents with pain in her arms and radiating to her jaw. Initial troponin undetectable, repeat troponin detectable at 0.6. Third troponin detectable at 5.9 -EKG per my review shows no ST segment elevation or nicole ischemia repeat EKG pending after third troponin, -Aspirin load administered at home. Will continue 81 mg aspirin. Loading with 600 mg Plavix given bump in troponin. Continue 75 mg daily -Cardiology consulted, will evaluate patient in the morning. Anticipate left heart cath -Echocardiogram ordered for the morning. Per history, has moderately reduced EF. -Continue atenolol 25 mg daily -Mildly hypertensive with blood pressure 160/90. Will administer 1 dose IV enalapril 0.625 mg -Will administer Lovenox 1 mg/kg once for anticoagulation COPD: -Continue Breo inhaler 1 inhalation daily -DuoNebs every 6 hours as needed -No signs of exacerbation. Supplemental oxygen as needed for goal sats greater 90% Hyperlipidemia: Lipid panel ordered for the morning. Continue statin with Lipitor 40mg nightly Full code (do not shock) Cardiac diet, n.p.o. midnight
--- NOTE | 2024-11-16 17:30 | PC.NURSE ---
arrived by w/c from ED
[2024-11-16 18:48] LABS: Troponin I 5.94 ng/ml (0.00-0.034)
[2024-11-16] MEDS: ENALAPRILAT 2.5MG/2ML VIAL 0.625 MG IV (18:56)
[2024-11-16] MEDS: CLOPIDOGREL 300MG TABLET 600 MG PO (18:56)
--- NOTE | 2024-11-16 18:57 | ECG_ITS ---
APPROVED REPORT Exam: Resting ECG HR:95 bpm ECG Measurements Heart Rate 95 AXES MA 151 P 75 QRSd 98 QRS -53 QT 366 T 85 QTc 418 Conclusion SINUS RHYTHM INCOMPLETE RIGHT BUNDLE BRANCH BLOCK [90+ ms QRS DURATION, TERMINAL R IN V1/V2, 40+ ms S IN I/aVL/V4/V5/V6] LEFT ANTERIOR FASCICULAR BLOCK [QRS AXIS <= -45, QR IN I, RS IN II] SEPTAL MYOCARDIAL INFARCTION , PROBABLY OLD [40+ ms Q WAVE IN V1/V2] ABNORMAL ECG UNCONFIRMED REPORT Electronically signed by : Dewayne Morejon MD 11/19/2024 08:32:04
--- NOTE | 2024-11-16 19:00 | PC.NURSE ---
pt currently reports NO chest pain or increased shortness of breath at this time
[2024-11-16] MEDS: ENOXAPARIN 100MG/ML SYRINGE 65 MG SUBCUT (19:29)
[2024-11-16] MEDS: ATORVASTATIN 40MG TABLET 40 MG PO (20:02)
--- NOTE | 2024-11-16 23:07 | ECG_ITS ---
APPROVED REPORT Exam: Resting ECG HR:85 bpm ECG Measurements Heart Rate 85 AXES AK 152 P 71 QRSd 96 QRS -62 QT 386 T 73 QTc 428 Conclusion SINUS RHYTHM LEFT ANTERIOR FASCICULAR BLOCK [QRS AXIS <= -45, QR IN I, RS IN II] NONSPECIFIC ST & T-WAVE ABNORMALITY ABNORMAL ECG UNCONFIRMED REPORT Electronically signed by : Dewayne Morejon MD 11/19/2024 08:31:58
[2024-11-16] MEDS: NITROGLYCERIN 0.4MG SL TABLET 0.4 MG SL ×2 (23:10→23:20)
[2024-11-16] MEDS: ONDANSETRON 4MG/2ML VIAL 4 MG IV (23:20)
[2024-11-17] VITALS (21 sets, daily range): BP systolic 90–149; BP diastolic 49–84; PULSE 65–90; RESP 16–24; TEMP 36.8–37.3; O2SAT 90–96; BMI 22.1
--- NOTE | 2024-11-17 00:35 | PC.NURSE ---
At around 2250, pt complained of increasing pain to left shoulder and back rating the pain a 7/10. Provider was notified. An ekg and vitals were obtained. 1 nitro tablet was given. Rechecked with pt about 10 mins later and pt said pain had decreased for a couple minutes but was starting to increase again. Another nitro tablet given. Pt reported relief of pain. After 30 minutes pt reported pain at a 1/10. Currently resting in bed at this time.
[2024-11-17 07:28] LABS: Basophils # 0.1 K/mm3 (0-0.2); Basophils % 0.6 % (0.1-2.0); Eosinophils % 0.4 % (0.1-12.0); Hematocrit 44.8 % (37.0-47.0); Hemoglobin 15.1 g/dL (12.2-16.2); Lymphocytes # 1.3 K/mm3 (0.7-4.5); Lymphocytes % 14.4 % (10-50); Mean Corpuscular HGB Conc 33.7 g/dL (31.8-35.4); Mean Corpuscular Hemoglobin 31.9 pg (27.0-31.2); Mean Corpuscular Volume 94.7 fl (81-99); Mean Platelet Volume 10.3 fl (7.4-10.4); Neutrophils # 6.6 K/mm3 (1.8-7.8); Neutrophils % 73.4 % (37.0-80.0); Platelet Count 234 K/mm3 (142-424); Red Blood Count 4.73 M/mm3 (4.20-5.40); Red Cell Distribution Width 13.2 % (11.5-17.5)
[2024-11-17 07:37] LABS: Alanine Aminotransferase 35 U/L (12-78); Albumin Level 3.9 g/dl (3.5-5.0); Albumin/Globulin Ratio 1.4 (1.1-1.8); Alkaline Phosphatase 107 U/L (38-126); Anion Gap 8.7 mEq/L (5-15); Aspartate Amino Transferase 223 U/L (14-36); Bilirubin,Total 0.5 mg/dl (0.2-1.3); Blood Urea Nitrogen 13 mg/dl (7-17); Calcium 8.5 mg/dl (8.4-10.2); Carbon Dioxide 27 mmol/L (22.0-30.0); Chloride 106 mmol/L (98-107); Creatinine Clearance Estimated 48 mL/min (50-200); Estimated Glomerular Filt Rate 81 ml/min (>60); GFR (African American) 98 ML/MIN (>60); Globulin 2.7 g/dL (1.3-3.2); Glucose 105 mg/dl (74-100); Potassium 3.7 mmoL/L (3.5-5.1); Sodium 138 mmol/L (136-145); Total Protein,Serum 6.6 g/dl (6.3-8.2)
[2024-11-17 08:14] LABS: Chol/HDL Ratio 3.2 (1-3.5); Cholesterol 119 mg/dl (140-200); HDL Cholesterol 37 mg/dl (40-60); Triglycerides 82 mg/dl (30-150); VLDL Cholesterol 16 mg/dL (0-40)
[2024-11-17] MEDS: ASPIRIN EC 81MG TABLET 81 MG PO (08:20)
[2024-11-17] MEDS: ATENOLOL 25MG TABLET 25 MG PO (08:20)
[2024-11-17] MEDS: CLOPIDOGREL 75MG TAB 75 MG PO (08:20)
[2024-11-17 08:25] LABS: Direct LDL Cholesterol 68.48 mg/dL (100-129)
--- NOTE | 2024-11-17 08:43 | HMH.PHAINT1 ---
Pharmacy Intervention Comments: HOME MEDICATION LIST VERIFIED USING LIST FROM OUTPATIENT PHARMACY
[2024-11-17] MEDS: ACETAMINOPHEN 325MG TAB 650 MG PO (10:02)
[2024-11-17] MEDS: IPRATROPIUM/ALBUTEROL 3 ML NEB IH (10:41)
--- NOTE | 2024-11-17 10:42 | IR_ITS ---
APPROVED REPORT Patient Location: Inpatient PROCEDURES Selective coronary angiogram Angioplasty to the circumflex artery Intravascular lithotripsy to the circumflex artery INDICATION Acute non-ST elevation myocardial infarction, Coronary artery disease, History of brachytherapy to the circumflex artery Informed consent was obtained prior to the procedure. COMPLICATIONS None Estimated Blood Loss: Less than 10 mls TECHNIQUE One percent lidocaine used to anesthetize the right anterior aspect of the wrist. The right radial artery was accessed via the Seldinger technique. A 6 [place] sheath was placed in the right radial artery. 2.5 mg of Verapamil, 800 mcg of nitroglycerin, 1mg Lidocaine and 5000 U Heparin were given through the arterial sheath. The 6 [place] JL 3 guide catheter and an EBU guide catheter were also used to perform left heart catheterization, left ventriculogram and selective coronary angiogram. At the end the diagnostic angiogram therapeutic Was administered giving a therapeutic ACT and the guide catheter was placed in the left main artery followed by Choice PT extra-support wire placed distally into the circumflex artery. A total of 14 balloons 2 different guide catheters and multiple Choice PT extra-support wires were used in order to try predilating and opening the critical stenosis. A 3 mm x 12 mm intravascular lithotripsy balloon was deployed at 4 akash and 50 pulsations were delivered proximally. Despite all efforts a noncompliant balloon could not be used to traverse the greater than 90% stenotic area. Despite a 4 mm x 12 mm compliant balloon being able to pass through the stenotic area and deployed at 20 akash this still would not allow the passage of a noncompliant 4 mm balloon to past the stenotic area. An EBU 3.75 guide catheter was also attempted to provide better support and pass a balloon. All efforts failed to reduce the stenosis. At the end of the procedure the apparatus was removed the sheath was removed good hemostasis was achieved and TR banding patient was transferred to the postop putting in stable condition ANGIOGRAPHIC RESULTS The left main artery Has an ostial 10% stenosis The left anterior descending artery Has a proximal 60% followed by an eccentric 70% stenosis. A large first diagonal artery then has a proximal 20% stenosis The circumflex artery Is nondominant yet still large with a proximal 60% concentric stenosis followed by a stent which has a greater than 90% concentric in-stent restenotic lesion The right coronary artery Dominant with proximal 60% concentric stenosis and a mid vessel 60% calcified stenosis The MERIDA ventriculogram reveals Not performed The left ventricular end-diastolic pressure Not measured IMPRESSION Three-vessel coronary disease as described above Inability to reduce a previously stented area which had undergone brachytherapy nearly 20 years ago despite using intravascular lithotripsy and 14 various balloons. A greater than 90% stenosis remains PLAN 1. Discontinue Plavix 2. Transfer to [facility] for evaluation of coronary bypass surgery 3. Continue heparin drip Electronically signed by : Cain Us MD 11/17/2024 15:34:20
--- NOTE | 2024-11-17 10:52 | P.CONCA_ITS ---
History of Present Illness History of Present Illness Consult date: 11/17/24 Requesting physician: Brian Hill Consult reason: shortness of breath Chief complaint: SOA, arm pain, back pain History of present illness: This is a 79-year-old white female who presented to the emergency department with shortness of breath and bilateral arm pain. The patient has a past medical history of coronary artery disease with stenting in 2000 and brachytherapy in 2003. The patient states that she was sitting in a chair around 11 AM yesterday when she had sudden onset of profound shortness of breath. She states that she felt like she was gasping for air. She then had pain in her back that radiated down her bilateral arms up into her neck and her left jaw. She states that this was constant and a severe pain. She called EMS and they gave her nitroglycerin and aspirin. She did not have improvement in her symptoms so she came to the emergency department. The patient's initial troponin was negative and her second troponin did bump up to 0.6. Her third troponin was 5.94. Repeat troponin this morning is 52.90. This morning she states that she does not feel well at all. She states that she is still having severe episodes of the bilateral arm pain and jaw pain. She states that she still feels profoundly short of breath. She states that she is unable to lie down because of the severe shortness of breath. She states that she feels like she is gasping for air most of the time. She has had no improvement since being in the hospital. She does report feeling a little short of breath for 2 weeks leading up to this. She states that this was mild but did notice a difference. It was associated with fatigue and a cough. [facility] Disclaimer: The information contained in this section may have been updated after the patient was seen, as this information can be updated by other users. Medical History (Updated 11/17/24 @ 11:58 by Mariel Trammell APRN) Abnormal echocardiogram Hyperlipidemia Hypertension History of IA (myocardial infarction) Coronary artery disease History of left heart catheterization Urinary tract infection Pneumonia History of COVID-19 COPD (chronic obstructive pulmonary disease) Encounter for screening for malignant neoplasm of lung Nodule of right lung Allergic rhinitis Chronic cough History of smoking 30 or more pack years History of 2019 novel coronavirus disease (COVID-19) Dyspnea on exertion Surgical History History of hip surgery History of hysterectomy Family History Other No significant family history Social History Smoking Status: Current every day smoker tobacco type: cigarettes packs per day: 1 second hand exposure: Yes alcohol intake: never substance use type: denies use and other current occupational status: employed Travel in the last 8 weeks: None household members: none housing: house 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 current occupational exposures/hazards: No caffeine: Yes Have you lived/traveled outside [place] in past 30 days?: No Contact w/someone who lives/traveled outside US past 30 days?: No Exposure to someone with infectious disease in past 14 days?: No Do you have a fever (greater than 100.4 F or 38 C)?: No Have you tested positive for COVID-19: No Exposed to someone with COVID-19 in past 14 days?: No Do you have a sore throat?: No Do you have a cough?: No Do you have any weakness?: No Are you experiencing any nausea/vomitting?: No Do you have any diarrhea?: No Are you experiencing any unusual bleeding?: No Do you have any muscle aches/pain?: No Do you have any abdominal pain?: No Are you experiencing loss of taste or smell?: No Review of Systems Review of Systems Review of systems:: pertinent systems reviewed and negative unless documented below Constitutional Constitutional: Reports system reviewed and no additional complaints, except as documented Eyes Eyes: Reports system reviewed and no additional complaints, except as documented ENT Ears, Nose, Mouth, and Throat: Reports system reviewed and no additional complaints, except as documented and Reports neck pain (Into the left jaw) *Cardiovascular Cardiovascular: Reports system reviewed and no additional complaints, except as documented, Reports dyspnea, Reports dyspnea on exertion, Reports orthopnea and Reports radiating jaw, neck or arm pain *Respiratory Respiratory: Reports system reviewed and no additional complaints, except as documented, Reports dyspnea and Reports dyspnea on exertion *Gastrointestinal Gastrointestinal: Reports system reviewed and no additional complaints, except as documented *Genitourinary Genitourinary: Reports system reviewed and no additional complaints, except as documented *Musculoskeletal Musculoskeletal: Reports system reviewed and no additional complaints, except as documented, Reports back pain and Reports neck pain (Into the left jaw) Integumentary/Breasts Skin/Breast: Reports system reviewed and no additional complaints, except as documented *Neurologic Neurologic: Reports system reviewed and no additional complaints, except as documented Psychiatric Psychiatric: Reports system reviewed and no additional complaints, except as documented Endocrine Endocrine: Reports system reviewed and no additional complaints, except as documented Hematologic/Lymphatic Hematologic/Lymphatic: Reports system reviewed and no additional complaints, except as documented Allergic/Immunologic Allergic/Immunologic: Reports system reviewed and no additional complaints, except as documented Exam Data for Last 24 hours Vital signs and Labs for Last 24 Hours: Temp Pulse Resp BP Pulse Ox O2 Del Method O2 Flow Rate 98.8 F 72 19 118/69 92 L Room Air 2 11/17/24 08:00 11/17/24 10:42 11/17/24 08:00 11/17/24 08:00 11/17/24 09:16 11/17/24 10:31 11/16/24 14:30 Laboratory Results - last 24 hr 11/16/24 11:18: WBC 9.0, RBC 4.74, Hgb 15.5, Hct 44.8, MCV 94.5, MCH 32.7 H, MCHC 34.6, RDW 13.2, Plt Count 237, MPV 10.2, Neut % (Auto) 61.6, Lymph % (Auto) 26.7, [place] % (Auto) 8.2, Eos % (Auto) 2.7, Baso % (Auto) 0.6, Neut # (Auto) 5.5, Lymph # (Auto) 2.4, [place] # (Auto) 0.7, Eos # (Auto) 0.2, Baso # (Auto) 0.1, D- Dimer 0.96 H, Sodium 138, Potassium 3.6, Chloride 105, Carbon Dioxide 26, Anion Gap 10.6, BUN 9, Creatinine 0.70, Estimated Creat Clear 48, Estimated GFR 81, Est GFR ( Amer) 98, Glucose 149 H, Calcium 8.7, Troponin I < 0.01 11/16/24 12:00: SARS-CoV-2 (PCR) Not detected, Influenza A Untype (PCR) Not detected, Influenza Type B (PCR) Not detected 11/16/24 14:58: Troponin I 0.60 H 11/16/24 18:04: Troponin I 5.94 H 11/17/24 06:39: WBC 9.0, RBC 4.73, Hgb 15.1, Hct 44.8, MCV 94.7, MCH 31.9 H, MCHC 33.7, RDW 13.2, Plt Count 234, MPV 10.3, Neut % (Auto) 73.4, Lymph % (Auto) 14.4, [place] % (Auto) 11.0 H, Eos % (Auto) 0.4, Baso % (Auto) 0.6, Neut # (Auto) 6.6, Lymph # (Auto) 1.3, [place] # (Auto) 1.0, Eos # (Auto) 0.0, Baso # (Auto) 0.1, Sodium 138, Potassium 3.7, Chloride 106, Carbon Dioxide 27, Anion Gap 8.7, BUN 13 D, Creatinine 0.70, Estimated Creat Clear 48, Estimated GFR 81, Est GFR ( Amer) 98, Glucose 105 H D, Calcium 8.5, Magnesium 2.0, Total Bilirubin 0.5, AST 223 H, ALT 35, Alkaline Phosphatase 107, Troponin I 52.90 H, Total Protein 6.6, Albumin 3.9, Globulin 2.7, Albumin/Globulin Ratio 1.4, Triglycerides 82, Cholesterol 119 L, LDL Cholesterol Direct 68.48 L, VLDL Cholesterol 16, HDL Cholesterol 37 L, Cholesterol/HDL Ratio 3.2 I & O for Last 24 hours: Intake & Output 11/14/24 11/15/24 11/16/24 11/17/24 23:59 23:59 23:59 23:59 Intake Total 270 / 270 Balance 270 / 270 Weight 142 lb 141 lb 8.588 oz Constitutional Constitutional: no acute distress and average body habitus *Routine HEENT Exam Head: Present normocephalic and atraumatic ENT: Present mucous membranes moist *Routine Neck Exam Neck: Present supple, full ROM and normal carotid upstroke; Absent JVD, carotid bruit or lymphadenopathy *Routine Respiratory Exam Respiratory: Present wheezes (Expiratory wheezes bilaterally), normal respiratory effort and symmetric chest movement *Routine Cardiovascular Exam Cardiovascular: Present RRR, Normal S1 and Normal S2; Absent murmur or gallop *Routine Abdominal Exam Abdominal: Present soft and normoactive bowel sounds; Absent tenderness, distended or organomegaly *Routine Extremities Exam Extremities: Present full ROM, pulses intact and normal capillary refill; Absent cyanosis, clubbing or edema *Routine Skin Exam Skin: Present intact and warm; Absent erythema *Routine Neurological Exam Neurological: Present alert, oriented X3 and CN II-XII intact; Absent sensory deficit or motor deficit Routine Psychiatric Exam Psychiatric: Present normal affect Meds Home Medications and Allergies Home Medications ?Medication ?Instructions ?Recorded ?Confirmed ?Type aspirin 81 mg tablet,delayed 81 mg PO DAILY 11/06/19 11/16/24 History release atenolol 25 mg tablet 25 mg PO DAILY 11/06/19 11/16/24 History simvastatin 20 mg tablet 80 mg PO DAILY Cholesterol 11/06/19 02/04/24 History azelastine 137 mcg (0.1 %) nasal 2 spray intranasal HS 90 days #30 04/15/23 11/16/24 Rx spray mL fluticasone furoate 100 1 inh inhalation DAILY #90 ea 02/04/24 11/16/24 Rx mcg-vilanterol 25 mcg/dose inhalation powder (Breo Ellipta) albuterol sulfate 90 mcg/actuation 2 puff inhalation Q6HP PRN 11/16/24 11/17/24 History aerosol inhaler SHORTNESS OF AIR simvastatin 80 mg tablet 80 mg PO HS 11/17/24 11/17/24 History New Prescriptions to Start Prescriptions: Allergies Allergy/AdvReac Type Severity Reaction Status Date / Time No Known Allergies Allergy Verified 02/04/24 13:28 Assessment and Plan *Assessment and plan (1) NSTEMI (non-ST elevated myocardial infarction): Status: Acute Category: Medical Code(s): I21.4 - Non-ST elevation (NSTEMI) myocardial infarction (2) Coronary artery disease: Status: Acute Qualifiers: Coronary Disease-Associated Artery/Lesion type: [place] artery [place] vs. transplanted heart: [place] heart Associated angina: with other forms of angina Qualified Code(s): I25.118 - Atherosclerotic heart disease of [place] coronary artery with other forms of angina pectoris Category: Medical Code(s): I25.10 - Atherosclerotic heart disease of [place] coronary artery without angina pectoris (3) Hypertension: Status: Acute Qualifiers: Hypertension type: primary hypertension Qualified Code(s): I10 - Essential (primary) hypertension Category: Medical Code(s): I10 - Essential (primary) hypertension (4) Hyperlipidemia: Status: Acute Qualifiers: Hyperlipidemia type: mixed hyperlipidemia Qualified Code(s): E78.2 - Mixed hyperlipidemia Category: Medical Code(s): E78.5 - Hyperlipidemia, unspecified (5) COPD (chronic obstructive pulmonary disease): Status: Chronic Qualifiers: COPD type: unspecified COPD Qualified Code(s): J44.9 - Chronic obstructive pulmonary disease, unspecified Category: Medical Code(s): J44.9 - Chronic obstructive pulmonary disease, unspecified (6) Tobacco use disorder: Status: Acute Category: Medical Code(s): F17.200 - Nicotine dependence, unspecified, uncomplicated (7) Abnormal echocardiogram: Status: Acute Category: Medical Code(s): R93.1 - Abnormal findings on diagnostic imaging of heart and coronary ci rculation Plan Plan: 1. This is a 79-year-old female who presented to the emergency department complaints of shortness of breath, back pain, bilateral arm pain and jaw pain. The patient was found to have an elevated troponin consistent with a non-STEMI. Will plan to proceed with left cardiac catheterization today to evaluate coronary artery disease. 2. The patient has been educated on the risks and benefits of proceeding with left cardiac catheterization. The patient verbalizes understanding and is agreeable in proceeding with the procedure. 3. The patient will be n.p.o. in preparation for left cardiac catheterization. 4. Will get an echocardiogram to evaluate her LV function. Preliminary echocardiogram shows a normal ejection fraction with anterior lateral wall motion abnormalities. 5. The patient was given a Plavix load yesterday and will continue Plavix daily. 6. She has been treated with Lovenox as well. 7. Her blood pressure is well-controlled. Continue atenolol. 8. Her LDL goal is less than 55. Her LDL is 68. She is on a statin. 9. Tobacco cessation is highly advised and counseled. 10. Further recommendations will be made pending the patient's response to treatment and the results of her left cardiac catheterization and echocardiogram today. Thank you for the opportunity to help participate in the care of this patient. All recommendations and orders are per Dr. Wade.
[2024-11-17] MEDS: VERAPAMIL 2.5MG/ML 2ML VIAL 2.5 MG IV (11:17)
[2024-11-17] MEDS: LIDOCAINE 1% 10ML MDV 20 ML IJ (11:18)
[2024-11-17] MEDS: HEPARIN 1,000 UNITS/ML 10ML VIAL (CATH LAB) 10000 UNIT IV (11:19)
[2024-11-17] MEDS: diphenhydrAMINE 50MG/ML VIAL 50 MG IV (11:19)
[2024-11-17] MEDS: 0.9 % SODIUM CHLORIDE 500 ML 25 ML IV (11:31)
[2024-11-17] MEDS: FENTANYL 100MCG/2ML VIAL 50 MCG IV (12:41)
[2024-11-17] MEDS: MIDAZOLAM HCL 1MG/ML 5ML VIAL 1 MG IV (12:41)
[2024-11-17] MEDS: IOPAMIDOL-370 (76%);100ML BOTTLE 105 ML IV (13:46)
[2024-11-17 13:52] LABS: CATHL Activated Clotting Time 222 SEC (74-125)
--- NOTE | 2024-11-17 17:48 | PC.NURSE ---
PT IS RESTING IN BED. ALERT AND ORIENTED X4. EATING AND DRINKING WELL. CATH VSS. BRUISING NOTED TO RIGHT RADIAL CATH SITE. LUNG SOUNDS DIMINISHED WITH SCATTERED WHEEZES. ABDOMEN SOFT/NON TENDER WITH ACTIVE BOWEL SOUNDS. AMBULATES TO THE BATHROOM. WILL CONTINUE TO MONITOR.
[2024-11-17] MEDS: FLUTICASONE/SALMETEROL 250/50MCG DISKUS 1 PUFF IH (18:43)
--- NOTE | 2024-11-17 18:55 | CA_ITS ---
APPROVED REPORT EXAM: Comprehensive 2D, Doppler, and color-flow Echocardiogram Planner Scheduler: Laura Enciso CRT Ht: 5 ft 7 in Wt: 142lbs BSA: 1.75 BP: 164/93 mmHg Indications: NSTEMI, CP, COPD, HTN, HLD, Smoker Echo 11/06/19 EF 45% stents 2D Dimensions LA Volume 35.40 mL LA Volume Index 19.80 mL/m2 (M/F) 16-34 M-Mode Dimensions RVDd 2.54 cm (0.9-2.6) LA Diam 3.52 cm (1.9-4.0) LVDd 4.48 cm (3.5-5.7) LVDs 2.12 cm (3.5-5.7) IVSd 1.10 cm (0.6-1.1) PWd 1.12 cm (0.6-1.1) EF (Teich) 83.80% FS 52.70% EDV (Teich) 91.50 mL TAPSE 1.83 (<1.7) ESV (Teich) 14.80 mL LV Diastology E Decel Time 243 (160-240 msec) E/A Ratio 0.62 MED A' 12.10 cm/s LAT A' 13.60 cm/s Aortic Valve AO Peak GR. 6.70 mmHg Mitral Valve MV E Max Jaxon. 58.0 (40-130 cm/s) MV A Velocity 93.0 (40-130 cm/s) E/A Ratio 0.62 MV PHT 71.0 ms Pulmonary Valve PV Peak Velocity 232.0 (50-150 cm/s) Tricuspid Valve TR P. Velocity 353.00 cm/s RAP Estimate 10.00 mmHg RVSP 60.00 mmHg Left Ventricle The left ventricle is normal size. Left ventricular systolic function is mildly decreased. There is increased LV wall thickness. There is moderate hypokinesis of the inferolateral and lateral LV wright. Grade 1 diastolic dysfunction is present. LVEF is 45-50%. Right Ventricle Right ventricle is mildly dilated. The right ventricular systolic function is normal. Atria Left atrium is mildly dilated. Right atrium is mildly dilated. There is no Doppler evidence of interatrial shunt. Aortic Valve The aortic valve is mildly thickened. There is no aortic valvular stenosis. No aortic regurgitation is present. Mitral Valve The mitral valve leaflets are mildly thickened. No evidence of mitral valve stenosis. Trace mitral regurgitation. Tricuspid Valve Tricuspid valve is grossly normal in structure and function. Mild tricuspid regurgitation. RVSP is 40-45 mmHg. Pulmonic Valve The pulmonary valve is normal in structure. Mild pulmonic regurgitation. Great Vessels The aortic root is normal in size. The ascending aorta is normal in size. IVC is normal in size and collapses >50% with inspiration. Pericardium There is no pericardial effusion. Other Information Study Quality: Technically Difficult Conclusion Technically difficult study due to poor acoustic windows. Mildly reduced LV systolic function (LVEF 45-50%). Moderate hypokinesis of the inferolateral and lateral LV wright. Mild biatrial dilation. Mild TR, mild PI. Elevated RVSP 40-45 mmHg. Electronically signed by : Donita Wade MD 11/17/2024 12:38:09
--- NOTE | 2024-11-17 19:58 | EXP.ACUTE.PN ---
Subjective *Date: 11/17/24 *Time: 19:58 Interval history: Patient was more short of breath this morning on exam prior to her heart cath. Concern for anginal equivalent. Stable on room air. Denies any nausea or vomiting. Had episode of back pain overnight that responded to dose of nitroglycerin Medical Exam Vital signs and Labs for Last 24 Hours: Vital Signs Temp Pulse Pulse Resp BP Pulse Ox O2 Del Method 11/17/24 18:54 Room Air 11/17/24 18:05 80 16 137/70 92 L Room Air 11/17/24 17:05 72 18 118/57 L 93 L Room Air 11/17/24 17:00 Room Air 11/17/24 16:05 71 18 112/54 L 93 L Nasal Cannula 11/17/24 16:00 70 11/17/24 15:35 69 20 98/62 L 91 L Nasal Cannula 11/17/24 15:05 73 16 109/52 L 91 L Nasal Cannula 11/17/24 15:00 Nasal Cannula 11/17/24 14:35 70 16 100/51 L 93 L Nasal Cannula 11/17/24 14:05 65 16 90/49 L 94 L Nasal Cannula 11/17/24 13:50 66 18 97/54 L 93 L Nasal Cannula 11/17/24 13:35 71 18 103/57 L 94 L Nasal Cannula 11/17/24 13:20 69 18 114/59 L 93 L Room Air 11/17/24 13:05 66 20 99/53 L 96 Nasal Cannula 11/17/24 13:00 65 20 92/59 L 93 L Nasal Cannula 11/17/24 12:55 65 24 99/57 L 93 L Nasal Cannula 11/17/24 12:47 67 68 20 95/59 L 90 L Room Air 11/17/24 10:42 72 11/17/24 10:42 72 11/17/24 10:31 Room Air 11/17/24 09:16 92 L Room Air 11/17/24 08:00 98.8 F 78 19 118/69 96 Room Air 11/17/24 08:00 90 11/17/24 08:00 Room Air 11/17/24 07:25 Room Air 11/17/24 06:40 Room Air 11/17/24 05:00 Room Air 11/17/24 04:00 90 11/17/24 04:00 98.2 F 89 20 125/59 L 91 L Room Air 11/17/24 03:00 Room Air 11/17/24 01:00 Room Air 11/17/24 00:00 98.3 F 83 19 109/49 L 95 11/17/24 00:00 70 11/16/24 23:00 Room Air 11/16/24 21:00 Room Air 11/16/24 20:00 Room Air 11/16/24 20:00 90 11/16/24 20:00 98.1 F 87 16 162/81 H 93 L Room Air O2 Flow Rate 11/17/24 18:54 11/17/24 18:05 11/17/24 17:05 11/17/24 17:00 11/17/24 16:05 2 11/17/24 16:00 11/17/24 15:35 2 11/17/24 15:05 2 11/17/24 15:00 2 11/17/24 14:35 2 11/17/24 14:05 2 11/17/24 13:50 2 11/17/24 13:35 2 11/17/24 13:20 11/17/24 13:05 3 11/17/24 13:00 3 11/17/24 12:55 11/17/24 12:47 11/17/24 10:42 11/17/24 10:42 11/17/24 10:31 11/17/24 09:16 11/17/24 08:00 11/17/24 08:00 11/17/24 08:00 11/17/24 07:25 11/17/24 06:40 11/17/24 05:00 11/17/24 04:00 11/17/24 04:00 11/17/24 03:00 11/17/24 01:00 11/17/24 00:00 11/17/24 00:00 11/16/24 23:00 11/16/24 21:00 11/16/24 20:00 11/16/24 20:00 11/16/24 20:00 Intake and Output 11/17/24 11/17/24 11/17/24 07:59 15:59 23:59 Intake Total 420 / 780 360 / 780 Balance 420 / 780 360 / 780 Intake: Intake, Oral Amount 420 / 780 360 / 780 Other: Weight 64.2 kg Patient Weight 11/17/24 23:59 Weight 64.2 kg Laboratory Results - last 24 hr 11/17/24 06:39: WBC 9.0, RBC 4.73, Hgb 15.1, Hct 44.8, MCV 94.7, MCH 31.9 H, MCHC 33.7, RDW 13.2, Plt Count 234, MPV 10.3, Neut % (Auto) 73.4, Lymph % (Auto) 14.4, [place] % (Auto) 11.0 H, Eos % (Auto) 0.4, Baso % (Auto) 0.6, Neut # (Auto) 6.6, Lymph # (Auto) 1.3, [place] # (Auto) 1.0, Eos # (Auto) 0.0, Baso # (Auto) 0.1, Sodium 138, Potassium 3.7, Chloride 106, Carbon Dioxide 27, Anion Gap 8.7, BUN 13 D, Creatinine 0.70, Estimated Creat Clear 48, Estimated GFR 81, Est GFR ( Amer) 98, Glucose 105 H D, Calcium 8.5, Magnesium 2.0, Total Bilirubin 0.5, AST 223 H, ALT 35, Alkaline Phosphatase 107, Troponin I 52.90 H, Total Protein 6.6, Albumin 3.9, Globulin 2.7, Albumin/Globulin Ratio 1.4, Triglycerides 82, Cholesterol 119 L, LDL Cholesterol Direct 68.48 L, VLDL Cholesterol 16, HDL Cholesterol 37 L, Cholesterol/HDL Ratio 3.2 11/17/24 13:24: Activated Clotting Time 222 H* I & O for Labs for Last 24 Hours: Intake & Output 11/14/24 11/15/24 11/16/24 11/17/24 23:59 23:59 23:59 23:59 Intake Total 270 / 270 780 / 780 Balance 270 / 270 780 / 780 Weight 64.41 kg 64.2 kg Constitutional: Present no acute distress, average body habitus, chronically ill appearing and cooperative Head: Present atraumatic and normocephalic ENT: Present normal exam Respiratory: Present prolonged expiratory phase, wheezes and normal respiratory effort; Absent rhonchi or crackles Cardiac: Present Reg Rate and Rhythm GI: Present soft and normal bowel sounds; Absent distention or tenderness Extremities: Present normal inspection and full ROM Skin: Present intact; Absent erythema Neuro: Present Grossly Intact, alert, awake, oriented x 3 and moves all extremities Assessment and Plan *Assessment and plan (1) NSTEMI (non-ST elevated myocardial infarction): Status: Acute Category: Medical Code(s): I21.4 - Non-ST elevation (NSTEMI) myocardial infarction (2) History of DC (myocardial infarction): Status: Acute Category: Medical Code(s): I25.2 - Old myocardial infarction (3) Coronary artery disease: Status: Acute Qualifiers: Coronary Disease-Associated Artery/Lesion type: [place] artery [place] vs. transplanted heart: [place] heart Associated angina: with other forms of angina Qualified Code(s): I25.118 - Atherosclerotic heart disease of [place] coronary artery with other forms of angina pectoris Category: Medical Code(s): I25.10 - Atherosclerotic heart disease of [place] coronary artery without angina pectoris (4) History of smoking 30 or more pack years: Status: Chronic Category: Social Hx Code(s): Z87.891 - Personal history of nicotine dependence (5) Tobacco use disorder: Status: Acute Category: Medical Code(s): F17.200 - Nicotine dependence, unspecified, uncomplicated (6) COPD (chronic obstructive pulmonary disease): Status: Chronic Qualifiers: COPD type: unspecified COPD Qualified Code(s): J44.9 - Chronic obstructive pulmonary disease, unspecified Category: Medical Code(s): J44.9 - Chronic obstructive pulmonary disease, unspecified (7) Hypertension: Status: Acute Qualifiers: Hypertension type: primary hypertension Qualified Code(s): I10 - Essential (primary) hypertension Category: Medical Code(s): I10 - Essential (primary) hypertension (8) Hyperlipidemia: Status: Acute Qualifiers: Hyperlipidemia type: mixed hyperlipidemia Qualified Code(s): E78.2 - Mixed hyperlipidemia Category: Medical Code(s): E78.5 - Hyperlipidemia, unspecified (9) Abnormal echocardiogram: Status: Acute Category: Medical Code(s): R93.1 - Abnormal findings on diagnostic imaging of heart and coronary circulation Plan 79-year-old female with history of COPD and previous DC status post stenting 20 years ago. Presents with onset of chest pain at rest. Concern for NSTEMI. Serial troponins showing elevation. Discussed case with ER physician, request admission for cardiology evaluation and likely heart cath in the morning. I agreed to admit for further management. Patient chest pain-free at this time. No nausea or vomiting. Alert and oriented x 4. Admitted for heart cath. Found to have unstable CAD necessitating CABG. Will transfer to higher level of care when bed available. Continues to require inpatient treatment. High risk for decompensation. Problems addressed as follows: NSTEMI History of DC CAD HFmrEF -Short of breath this morning. Chest pain resolved however. Will administer nitro sublingual as needed if develops chest or back pain -Troponin peaked at 50 -Aspirin load administered at home. Continue 81 mg aspirin daily. -Cardiology consulted, discussed case today, taken for heart cath today, found to have multivessel disease with multiple LAD lesions and severe stenosis of circumflex. Not amenable to stents. Recommend 2-3 vessel CABG. -Echocardiogram obtained showing stable heart failure with mildly reduced EF of 45 to 50%. Elevated RVSP consistent with diastolic dysfunction. -Continue atenolol 25 mg daily - Will administer IV enalapril 0.625 mg as needed every 6 hours for systolic blood pressures above 160 -Continue Lovenox 1 mg/kg twice daily -Needs transfer for CABG due to multivessel disease not amenable to stenting. Will discontinue Plavix for now. Continue aspirin 81 mg daily. Anticipate transfer to for further management by CT surgery. White count normal at 9, hemoglobin 15. Kidney function normal with BUN 13, creatinine 0.7. Potassium 3.7, magnesium 2.0. Monitor kidney function due to contrast load administered during Today. Repeat CBC, CMP, magnesium ordered for the morning. COPD: -Continue Breo inhaler 1 inhalation daily -DuoNebs every 6 hours as needed -No signs of exacerbation. Supplemental oxygen as needed for goal sats greater 90% Hyperlipidemia: continue statin with Lipitor 40mg nightly Full code (do not shock) Cardiac diet
[2024-11-17] MEDS: ENOXAPARIN 60MG/0.6ML SYRINGE 60 MG SUBCUT (20:38)
[2024-11-17] MEDS: ATORVASTATIN 40MG TABLET 40 MG PO (20:40)
[2024-11-18] VITALS: BP 108/40; PULSE 80; PULSE 87; RESP 17; TEMP 37.1; O2SAT 92
[2024-11-18 04:00] VITALS: BP 133/62; PULSE 78; PULSE 80; RESP 16; TEMP 36.9; O2SAT 89; BMI 23.7
--- NOTE | 2024-11-18 05:09 | PC.NURSE ---
79 yo fe pt is A/O X 4. She has slept most of the shift and has denied chest pain or increased SOA. She does report cough and lungs noted with exp wheezing throughout. 02 sats in low 90s most of the night on 2 liters. During 4 am VS, pts 02 sats 89, increased 02 to 3 liters per nc. Right radial site dressing C/D/I with bruising noted. Pt has tolerated cardiac diet well.
[2024-11-18 06:55] VITALS: O2SAT 90
[2024-11-18] MEDS: FLUTICASONE/SALMETEROL 250/50MCG DISKUS 1 PUFF IH (06:56)
[2024-11-18 07:09] LABS: Basophils # 0.1 K/mm3 (0-0.2); Basophils % 0.7 % (0.1-2.0); Eosinophils # 0.1 K/mm3 (0.0-0.4); Eosinophils % 0.9 % (0.1-12.0); Hematocrit 40.1 % (37.0-47.0); Hemoglobin 13.6 g/dL (12.2-16.2); Lymphocytes # 2.2 K/mm3 (0.7-4.5); Lymphocytes % 25.2 % (10-50); Mean Corpuscular HGB Conc 33.9 g/dL (31.8-35.4); Mean Corpuscular Hemoglobin 32.2 pg (27.0-31.2); Mean Corpuscular Volume 94.8 fl (81-99); Mean Platelet Volume 10.3 fl (7.4-10.4); Monocytes # 0.9 K/mm3 (0.1-1.0); Monocytes % 9.9 % (1.7-9.3); Neutrophils # 5.4 K/mm3 (1.8-7.8); Neutrophils % 63.1 % (37.0-80.0); Platelet Count 204 K/mm3 (142-424); Red Blood Count 4.23 M/mm3 (4.20-5.40); Red Cell Distribution Width 13.4 % (11.5-17.5); White Blood Count 8.6 K/mm3 (4.8-10.8)
[2024-11-18 07:34] LABS: Anion Gap 7.5 mEq/L (5-15); Blood Urea Nitrogen 13 mg/dl (7-17); Calcium 7.7 mg/dl (8.4-10.2); Carbon Dioxide 27 mmol/L (22.0-30.0); Chloride 104 mmol/L (98-107); Creatinine Clearance Estimated 51 mL/min (50-200); Estimated Glomerular Filt Rate 81 ml/min (>60); GFR (African American) 98 ML/MIN (>60); Glucose 90 mg/dl (74-100); Potassium 3.5 mmoL/L (3.5-5.1); Sodium 135 mmol/L (136-145)
--- NOTE | 2024-11-18 07:34 | P.DS_ITS ---
General Admission date:: 11/16/24 Discharge date: 11/18/24 HPI HPI HPI: Ms. Rivera is a 79-year-old female with history of heart cath 24 years ago, long history of tobacco use, COPD, on no oxygen at home. Presented to the ER because of onset of chest pain suddenly at rest earlier today at approximately 11:00. Her nephew who is a doctor gave her sublingual nitro and aspirin, had no significant improvement in pain. States the pain was in her arms and radiated up her neck. Denies any palpitations today. Previous GA over 20 years ago had chest pain, has never had arm pain before. Denies any exertion. Has been feeling more fatigued and dyspneic with exertion over the past 2 weeks. On presentation to the ER, initiated on 2 L oxygen for comfort. EKG obtained showing no ischemic changes. Initial troponin less than 0.01. Repeat troponin showed a bump to 0.6. Cardiology was consulted, recommended admission for NSTEMI and evaluation in the morning. Medicine consulted for admission. On arrival to the floor, patient is improved and on room air. In no acute distress. Does have dry nonproductive cough. States she has been coughing for about a week. 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 COVID and flu negative on presentation. Denies any current chest pain. Tolerating dinner without difficulty. Alert and oriented x 4. Cardiac history as follows: -Non-Q wave GA 02/25/2001. -Left heart cath performed with distal lateral wall hypokinesis. Total occlusion of major obtuse marginal reduced to 0% with stent - 02/2004, abnormal Cardiolite GXT -October 2004 PTCA/brachytherapy of mid circumflex with in-stent restenosis. -10/2019, echo with EF 45% -12/2019 Cardiolite within normal limits with EF of 67% Hospital Course Hospital Course Hospital Course: 79-year-old female with history of COPD and previous GA status post stenting 20 years ago. Presents with onset of chest pain at rest. Concern for NSTEMI. Serial troponins showing elevation. Discussed case with ER physician, request admission for cardiology evaluation and likely heart cath in the morning. I agreed to admit for further management. Patient chest pain-free at this time. No nausea or vomiting. Alert and oriented x 4. Admitted for heart cath. Found to have unstable CAD necessitating CABG. Will transfer to higher level of care when bed available. Graciously excepted at for further management. Stable to discharge. Problems addressed as follows: NSTEMI History of GA CAD HFmrEF -Presented with arm pain and referred pain to her jaw. EKG showed ST depressions in inferolateral leads. Troponin gradually increased. Initially undetectable, peaked at 52.9. Cardiology was consulted. Patient was taken for left heart cath and found to have multivessel disease with multiple LAD lesions and severe stenosis of circumflex that was previously stented. Unable to open stenosis and circumflex stent. Findings were not amenable to stenting. Cardiology recommended transfer for CABG. Patient on aspirin 81 mg daily. Initially loaded with Plavix 600 mg on 11/16. Held thereafter. Continued Lovenox 1 mg/kg twice daily. Echo showed stable heart failure with mildly reduced EF of 45 to 50% and elevated RVSP consistent with diastolic dysfunction. -Continue atenolol 25 mg daily - Will administer IV enalapril 0.625 mg as needed every 6 hours for systolic blood pressures above 160 - Continue Lovenox 1 mg/kg twice daily -Due to diastolic dysfunction, administered 40 mg IV Lasix on morning of discharge. Patient having intermittent oxygen requirement, appears to have nocturnal hypoxia. Suspect secondary to her COPD and complicated by her heart disease. Goal sats greater than 90%. Currently on 2 L. Specifics of heart cath as follows: ANGIOGRAPHIC RESULTS The left main artery Has an ostial 10% stenosis The left anterior descending artery Has a proximal 60% followed by an eccentric 70% stenosis. A large first diagonal artery then has a proximal 20% stenosis The circumflex artery Is nondominant yet still large with a proximal 60% concentric stenosis followed by a stent which has a greater than 90% concentric in-stent restenotic lesion The right coronary artery Dominant with proximal 60% concentric stenosis and a mid vessel 60% calcified stenosis The [facility] ventriculogram reveals Not performed The left ventricular end-diastolic pressure Not measured IMPRESSION Three-vessel coronary disease as described above Inability to reduce a previously stented area which had undergone brachytherapy nearly 20 years ago despite using intravascular lithotripsy and 14 various balloons. A greater than 90% stenosis remains Kidney function normal BUN 13, creatinine 0.7. COPD: -Continue Breo inhaler 1 inhalation daily. DuoNebs every 6 hours as needed. No signs of exacerbation. Supplemental oxygen as needed for goal sats greater 90% Hyperlipidemia: continue statin with Lipitor 40mg nightly Tobacco use disorder: Continue nicotine patch daily Total time spent on discharge 32 minutes in counseling, documentation, chart review, and direct care with patient. Of note, all images including cath images and echo images power shared with on 11/18/24 Exam Data for Last 24 hours Vital signs and Labs for Last 24 Hours: Temp Pulse Resp BP Pulse Ox O2 Del Method O2 Flow Rate 98.5 F 78 16 133/62 90 L Nasal Cannula 3 11/18/24 04:00 11/18/24 04:00 11/18/24 04:00 11/18/24 04:00 11/18/24 06:55 11/18/24 06:58 11/18/24 06:58 Laboratory Results - last 24 hr 11/17/24 06:39: WBC 9.0, RBC 4.73, Hgb 15.1, Hct 44.8, MCV 94.7, MCH 31.9 H, MCHC 33.7, RDW 13.2, Plt Count 234, MPV 10.3, Neut % (Auto) 73.4, Lymph % (Auto) 14.4, [place] % (Auto) 11.0 H, Eos % (Auto) 0.4, Baso % (Auto) 0.6, Neut # (Auto) 6.6, Lymph # (Auto) 1.3, [place] # (Auto) 1.0, Eos # (Auto) 0.0, Baso # (Auto) 0.1, Sodium 138, Potassium 3.7, Chloride 106, Carbon Dioxide 27, Anion Gap 8.7, BUN 13 D, Creatinine 0.70, Estimated Creat Clear 48, Estimated GFR 81, Est GFR ( Amer) 98, Glucose 105 H D, Calcium 8.5, Magnesium 2.0, Total Bilirubin 0.5, AST 223 H, ALT 35, Alkaline Phosphatase 107, Troponin I 52.90 H, Total Protein 6.6, Albumin 3.9, Globulin 2.7, Albumin/Globulin Ratio 1.4, Triglycerides 82, Cholesterol 119 L, LDL Cholesterol Direct 68.48 L, VLDL Cholesterol 16, HDL Cholesterol 37 L, Cholesterol/HDL Ratio 3.2 11/17/24 13:24: Activated Clotting Time 222 H* 11/18/24 06:23: WBC 8.6, RBC 4.23, Hgb 13.6, Hct 40.1, MCV 94.8, MCH 32.2 H, MCHC 33.9, RDW 13.4, Plt Count 204, MPV 10.3, Neut % (Auto) 63.1, Lymph % (Auto) 25.2, [place] % (Auto) 9.9 H, Eos % (Auto) 0.9, Baso % (Auto) 0.7, Neut # (Auto) 5.4, Lymph # (Auto) 2.2, [place] # (Auto) 0.9, Eos # (Auto) 0.1, Baso # (Auto) 0.1 I & O for Last 24 hours: Intake & Output 11/15/24 11/16/24 11/17/24 11/18/24 23:59 23:59 23:59 23:59 Intake Total 270 / 270 780 / 1020 240 / 240 Balance 270 / 270 780 / 1020 240 / 240 Weight 64.41 kg 64.2 kg 68.5 kg Constitutional Constitutional: no acute distress, average body habitus and chronically ill appearing *Routine HEENT Exam Head: Present normocephalic and atraumatic ENT: Present mucous membranes moist *Routine Neck Exam Neck: Present supple, full ROM and normal carotid upstroke; Absent JVD, carotid bruit or lymphadenopathy *Routine Respiratory Exam Respiratory: Present wheezes (Expiratory wheezes bilaterally), normal respiratory effort and symmetric chest movement; Absent rhonchi or crackles *Routine Cardiovascular Exam Cardiovascular: Present RRR, Normal S1 and Normal S2; Absent murmur or gallop *Routine Abdominal Exam Abdominal: Present soft and normoactive bowel sounds; Absent tenderness, distended or organomegaly *Routine Rectal Exam Patient deferred: visual exam *Routine Exam Patient deferred: external exam *Routine Extremities Exam Extremities: Present full ROM, pulses intact and normal capillary refill; Absent cyanosis, clubbing or edema *Routine Skin Exam Skin: Present intact and warm; Absent erythema *Routine Neurological Exam Neurological: Present alert, oriented X3, CN II-XII intact and moving all extremities; Absent sensory deficit or motor deficit Routine Psychiatric Exam Psychiatric: Present normal affect Results Data Completed and Pending Labs on day of discharge: Labs from last 24 hours 11/18/24 11/17/24 11/17/24 06:23 13:24 06:39 WBC 8.6 9.0 RBC 4.23 4.73 Hgb 13.6 15.1 Hct 40.1 44.8 MCV 94.8 94.7 MCH 32.2 H 31.9 H MCHC 33.9 33.7 RDW 13.4 13.2 Plt Count 204 234 MPV 10.3 10.3 Neut % (Auto) 63.1 73.4 Lymph % (Auto) 25.2 14.4 [place] % (Auto) 9.9 H 11.0 H Eos % (Auto) 0.9 0.4 Baso % (Auto) 0.7 0.6 Neut # (Auto) 5.4 6.6 Lymph # (Auto) 2.2 1.3 Centre # (Auto) 0.9 1.0 Eos # (Auto) 0.1 0.0 Baso # (Auto) 0.1 0.1 Activated Clotting Time 222 H* Sodium 138 Potassium 3.7 Chloride 106 Carbon Dioxide 27 Anion Gap 8.7 BUN 13 D Creatinine 0.70 Estimated Creat Clear 48 Estimated GFR 81 Est GFR ( Amer) 98 Glucose 105 H D Calcium 8.5 Magnesium 2.0 Total Bilirubin 0.5 AST 223 H ALT 35 Alkaline Phosphatase 107 Troponin I 52.90 H Total Protein 6.6 Albumin 3.9 Globulin 2.7 Albumin/Globulin Ratio 1.4 Triglycerides 82 Cholesterol 119 L LDL Cholesterol Direct 68.48 L VLDL Cholesterol 16 HDL Cholesterol 37 L Cholesterol/HDL Ratio 3.2 DS: Diagnosis Discharge Diagnosis (1) NSTEMI (non-ST elevated myocardial infarction): Status: Acute Code(s): I21.4 - Non-ST elevation (NSTEMI) myocardial infarction (2) History of GA (myocardial infarction): Status: Acute Code(s): I25.2 - Old myocardial infarction (3) Coronary artery disease: Status: Acute Code(s): I25.10 - Atherosclerotic heart disease of [place] coronary artery without angina pectoris Qualifiers: Associated angina: with other forms of angina Coronary Disease- Associated Artery/Lesion type: [place] artery [place] vs. transplanted heart: [place] heart Qualified Code(s): I25.118 - Atherosclerotic heart disease of [place] coronary artery with other forms of angina pectoris (4) History of smoking 30 or more pack years: Status: Chronic Code(s): Z87.891 - Personal history of nicotine dependence (5) Tobacco use disorder: Status: Acute Code(s): F17.200 - Nicotine dependence, unspecified, uncomplicated (6) COPD (chronic obstructive pulmonary disease): Status: Chronic Code(s): J44.9 - Chronic obstructive pulmonary disease, unspecified Qualifiers: COPD type: unspecified COPD Qualified Code(s): J44.9 - Chronic obstructive pulmonary disease, unspecified (7) Hypertension: Status: Acute Code(s): I10 - Essential (primary) hypertension Qualifiers: Hypertension type: primary hypertension Qualified Code(s): I10 - Essential (primary) hypertension (8) Hyperlipidemia: Status: Acute Code(s): E78.5 - Hyperlipidemia, unspecified Qualifiers: Hyperlipidemia type: mixed hyperlipidemia Qualified Code(s): E78.2 - Mixed hyperlipidemia (9) Abnormal echocardiogram: Status: Acute Code(s): R93.1 - Abnormal findings on diagnostic imaging of heart and coronary circulation Meds Home Medications and Allergies Home Medications ?Medication ?Instructions ?Recorded ?Confirmed ?Type aspirin 81 mg tablet,delayed 81 mg PO DAILY 11/06/19 11/16/24 History release atenolol 25 mg tablet 25 mg PO DAILY 11/06/19 11/16/24 History azelastine 137 mcg (0.1 %) nasal 2 spray intranasal HS 90 days #30 04/15/23 11/16/24 Rx spray mL fluticasone furoate 100 1 inh inhalation DAILY #90 ea 02/04/24 11/16/24 Rx mcg-vilanterol 25 mcg/dose inhalation powder (Breo Ellipta) albuterol sulfate 90 mcg/actuation 2 puff inhalation Q6HP PRN 11/16/24 11/17/24 History aerosol inhaler SHORTNESS OF AIR atorvastatin 40 mg tablet 40 mg PO HS #0 tabs 11/18/24 Rx nicotine 21 mg/24 hr daily 21 mg transdermal DAILYP PRN 11/18/24 Rx transdermal patch Nicotine Cravings #0 ea New Prescriptions to Start Prescriptions: Allergies Allergy/AdvReac Type Severity Reaction Status Date / Time No Known Allergies Allergy Verified 02/04/24 13:28 Discharge Plan Disposition Patient Disposition: Xfer Short-Term Hosp Condition: Undetermined Discharge Order Discharge Orders: Discharge Order (Routine); Ordered 11/18/24 Ordered By: Brian Hill Follow up Plan Prescriptions/Medication Reconciliation: New atorvastatin 40 mg Tablet 40 mg PO HS Qty: 0 0RF nicotine 21 mg/24 hr Patch 24 Hour 21 mg transdermal DAILYP PRN (Reason: Nicotine Cravings) Qty: 0 0RF Continued azelastine 137 mcg (0.1 %) aerosol,spray 2 spray intranasal HS 90 Days Qty: 30 3RF Rx Instructions: administer into each nostril fluticasone furoate-vilanterol [Breo Ellipta] 100-25 mcg/dose blister with device 1 inh inhalation DAILY Qty: 90 2RF atenolol 25 MG tablet 25 mg PO DAILY aspirin 81 MG tablet,delayed release (DR/EC) 81 mg PO DAILY albuterol sulfate 90 mcg/actuation HFA aerosol inhaler 2 puff inhalation Q6HP PRN (Reason: SHORTNESS OF AIR) Patient Comments: INHALE 2 PUFFS BY MOUTH EVERY 6 HOURS FOR 25 DAYS NEEDED FOR COPD SYMPTOMS Rx Instructions: INHALE 2 PUFFS BY MOUTH EVERY 6 HOURS FOR 25 DAYS NEEDED Discontinued simvastatin 20 MG tablet 80 mg PO DAILY simvastatin 80 mg tablet 80 mg PO HS Patient Comments: TAKE 1 TABLET BY MOUTH EVERY NIGHT Problem Reconciliation Problems Reviewed?: Yes Patient Discharge Instructions ACTIVITY: Continue current activity DIET: continue same diet Patient Instructions: Acute Coronary Syndrome Print Language: Irish Providers Primary Care Provider: Noy Flaherty Admit Provider: Brian Hill Attending Provider: Brian Hill
[2024-11-18 08:00] VITALS: BP 104/48; PULSE 90; PULSE 91; RESP 18; TEMP 36.8; O2SAT 92
[2024-11-18] MEDS: ASPIRIN EC 81MG TABLET 81 MG PO (08:21)
[2024-11-18] MEDS: FUROSEMIDE 40MG/4ML VIAL 40 MG IV (08:21)
[2024-11-18] MEDS: ENOXAPARIN 60MG/0.6ML SYRINGE 60 MG SUBCUT (08:21)
[2024-11-18] MEDS: ATENOLOL 25MG TABLET 25 MG PO (08:21)
--- NOTE | 2024-11-18 08:25 | PC.NURSE ---
CALLED FOR INFORMATION ON PT. NO BEDS AVAILABLE AT THIS TIME
[2024-11-18 08:32] VITALS: O2SAT 86
[2024-11-18 08:49] LABS: Magnesium 1.8 mg/dl (1.6-2.3)
--- NOTE | 2024-11-18 09:23 | EXP.CARD.PN ---
Subjective Subjective Date: 11/18/24 Time: 08:00 Principal diagnosis: nonstemi, CAD Interval history: This is a 79-year-old female who presented to the emergency department complaints of shortness of breath and bilateral arm pain. Patient send have a non-STEMI. She underwent left cardiac catheterization yesterday and was found to have three-vessel coronary artery disease. The patient is currently awaiting transfer to [facility] for coronary artery bypass grafting. She has been excepted by Dr. Hazel with cardiothoracic surgery. This morning she states she feels no better than she did yesterday. She is still really short of breath even at rest. She states this is worse with exertion. She states she is still having the bilateral arm pain going up into her neck into her left jaw but it is not as intense. She denies any chest pain or pressure. The patient did have a max troponin of 52.90. She denies any lower extremity edema. She denies any fever, chills, nausea, vomiting or diarrhea. [facility] shows: The left main artery Has an ostial 10% stenosis The left anterior descending artery Has a proximal 60% followed by an eccentric 70% stenosis. A large first diagonal artery then has a proximal 20% stenosis The circumflex artery Is nondominant yet still large with a proximal 60% concentric stenosis followed by a stent which has a greater than 90% concentric in-stent restenotic lesion The right coronary artery Dominant with proximal 60% concentric stenosis and a mid vessel 60% calcified stenosis The [facility] ventriculogram reveals Not performed The left ventricular end-diastolic pressure Not measured IMPRESSION Three-vessel coronary disease as described above Inability to reduce a previously stented area which had undergone brachytherapy nearly 20 years ago despite using intravascular lithotripsy and 14 various balloons. A greater than 90% stenosis remains PLAN 1. Discontinue Plavix 2. Transfer to [facility] for evaluation of coronary bypass surgery 3. Continue heparin drip Exam Data for Last 24 hours Vital signs and Labs for Last 24 Hours: Temp Pulse Resp BP Pulse Ox O2 Del Method O2 Flow Rate 98.2 F 91 H 18 104/48 L 86 L Room Air 3 11/18/24 08:00 11/18/24 08:00 11/18/24 08:00 11/18/24 08:00 11/18/24 08:32 11/18/24 08:32 11/18/24 08:00 Laboratory Results - last 24 hr 11/17/24 13:24: Activated Clotting Time 222 H* 11/18/24 06:23: WBC 8.6, RBC 4.23, Hgb 13.6, Hct 40.1, MCV 94.8, MCH 32.2 H, MCHC 33.9, RDW 13.4, Plt Count 204, MPV 10.3, Neut % (Auto) 63.1, Lymph % (Auto) 25.2, [place] % (Auto) 9.9 H, Eos % (Auto) 0.9, Baso % (Auto) 0.7, Neut # (Auto) 5.4, Lymph # (Auto) 2.2, [place] # (Auto) 0.9, Eos # (Auto) 0.1, Baso # (Auto) 0.1, Sodium 135 L, Potassium 3.5, Chloride 104, Carbon Dioxide 27, Anion Gap 7.5, BUN 13, Creatinine 0.70, Estimated Creat Clear 51, Estimated GFR 81, Est GFR ( Amer) 98, Glucose 90, Calcium 7.7 L, Magnesium 1.8 I & O for Last 24 hours: Intake & Output 11/15/24 11/16/24 11/17/24 11/18/24 23:59 23:59 23:59 23:59 Intake Total 270 / 270 780 / 1020 610 / 610 Balance 270 / 270 780 / 1020 610 / 610 Weight 142 lb 141 lb 8.588 oz 151 lb 0.266 oz Narrative: Echo shows: Technically difficult study due to poor acoustic windows. Mildly reduced LV systolic function (LVEF 45-50%). Moderate hypokinesis of the inferolateral and lateral LV wright. Mild biatrial dilation. Mild TR, mild PI. Elevated RVSP 40-45 mmHg. Constitutional Constitutional: no acute distress and average body habitus *Routine HEENT Exam Head: Present normocephalic and atraumatic ENT: Present mucous membranes moist *Routine Neck Exam Neck: Present supple, full ROM and normal carotid upstroke; Absent JVD, carotid bruit or lymphadenopathy *Routine Respiratory Exam Respiratory: Present wheezes (Expiratory wheezes bilaterally), normal respiratory effort and symmetric chest movement *Routine Cardiovascular Exam Cardiovascular: Present RRR, Normal S1 and Normal S2; Absent murmur or gallop *Routine Abdominal Exam Abdominal: Present soft and normoactive bowel sounds; Absent tenderness, distended or organomegaly *Routine Extremities Exam Extremities: Present full ROM, pulses intact and normal capillary refill; Absent cyanosis, clubbing or edema *Routine Skin Exam Skin: Present intact and warm; Absent erythema *Routine Neurological Exam Neurological: Present alert, oriented X3 and CN II-XII intact; Absent sensory deficit or motor deficit Routine Psychiatric Exam Psychiatric: Present normal affect Progress Note: A&P Assessment and plan (1) NSTEMI (non-ST elevated myocardial infarction): Status: Acute (2) HFrEF (heart failure with reduced ejection fraction): Status: Acute (3) Coronary artery disease: Status: Acute (4) History of smoking 30 or more pack years: Status: Chronic (5) Tobacco use disorder: Status: Acute (6) COPD (chronic obstructive pulmonary disease): Status: Chronic (7) Hypertension: Status: Acute (8) Hyperlipidemia: Status: Acute (9) Abnormal echocardiogram: Status: Acute Assessment and Plan Assessment and Plan for All Diagnoses:: Plan: 1. This is a 79-year-old female who presented to the emergency department complaints of shortness of breath, back pain, bilateral arm pain and jaw pain. The patient was found to have an elevated troponin consistent with a non-STEMI. She underwent left cardiac catheterization yesterday and was found to have three-vessel coronary artery disease. Attempted revascularization of the circumflex artery was unsuccessful so the patient has been referred for coronary artery bypass grafting. She is currently awaiting transfer to [facility] with Dr. Hazel. 2. Plavix was stopped yesterday following her left cardiac catheterization in anticipation of bypass. 3. Coronary artery disease is present. Continue aspirin and Lovenox 4. Her blood pressure is well-controlled. Continue atenolol. 5. Her LDL goal is less than 55. Her LDL is 68. She is on a statin. 6. Echocardiogram shows an ejection fraction of 45 to 50%. She also had an elevated RVSP at 45 to 50 mmHg. Will give her Lasix 40 mg IV x 1 dose today to see how she responds. If this significantly improves her symptoms then we may need to start her on scheduled IV Lasix. 7. Tobacco cessation is highly advised and counseled. 8. Further recommendations will be made pending the patient's response to treatment. She is currently awaiting transfer to [facility] for CABG. Thank you for the opportunity to help participate in the care of this patient. All recommendations and orders are per Dr. Wade.
[2024-11-18 12:00] VITALS: BP 102/56; PULSE 70; PULSE 78; RESP 20; TEMP 37.1; O2SAT 92
--- NOTE | 2024-11-18 17:05 | PC.NURSE ---
pt accepted to : [facility] [address] [place] [id number] report # [phone]
== END 2024-11-18 15:37 | disposition short-term general hospital (02) | DRG 325 ==
LOC: ER 15:41 → 2ND 17:08
PROVIDERS: Internal Medicine; Student in an Organized Health Care Education/Training Program; Admitting Provider Internal Medicine Adolescent Medicine; Emergency Provider Emergency Medicine; PCP Nurse Practitioner Family; Visit Provider Internal Medicine Adolescent Medicine
PROC: 02F03ZZ Fragmentation in Coronary Artery, One Artery, Percutaneous Approach (ICD-10-PCS; principal; 2024-11-17 10:30)
DX: I21.4 Non-ST elevation (NSTEMI) myocardial infarction (principal); I50.23 Acute on chronic systolic (congestive) heart failure; I11.0 Hypertensive heart disease with heart failure; I25.2 Old myocardial infarction; I25.10 Atherosclerotic heart disease of native coronary artery without angina pectoris; J44.9 Chronic obstructive pulmonary disease, unspecified; E78.2 Mixed hyperlipidemia; R93.1 Abnormal findings on diagnostic imaging of heart and coronary circulation; F17.210 Nicotine dependence, cigarettes, uncomplicated; Z86.16 Personal history of COVID-19
CPT/HCPCS: 36415; 71045; 71275; 80048; 80053; 80061; 83735; 84484; 85025; 85347; 85378; 87636; 92920; 92972; 93005; 93306; 94640; 99152; 99153; 99285; C1725; C1761; C1769; C1874; C1894; G0378; J1200; J1644; J1650; J1940; J2250; J2270; J2405; J3010; J7620; Q9967

== ENCOUNTER 2025-01-02 10:01 | Outpatient (RCR) | payer MEDICARE, SELFPAY | END 2025-03-21 11:00 | disposition home or self-care (01) | LOC: CR 10:01 | PROVIDERS: Visit Provider Internal Medicine | DX: Z51.89 Encounter for other specified aftercare (principal); Z98.61 Coronary angioplasty status | CPT/HCPCS: 93798 ==

== ENCOUNTER 2025-06-23 11:15 | Outpatient (CLI) | payer MEDICARE, SELFPAY ==
--- OUTSIDE RECORDS SUMMARY | 2025-04-25 10:08 | XMS_ITS | Encounter Summary ---
Author Organization [facility] Address [address] [id number] Care Team Providers Care Child Psychology Teacher Name Role Phone Noy Flaherty APRN Primary Care Provid er Reason for Referral * Diagnostic Imaging (Routine) - Closed Specialty Diagnoses / Procedures Referred By Contac t Referred To Contact Diagnoses Nonrheumatic mitral valve regurgitation Procedures Adult Transthoracic Echo Complete W/ Cont if Necessary Per Protocol Brian Amador MD [facility] [place] [address] Phone: tel: fax: [address] [address] Phone: tel: Referral ID Status Reason Start Date Expiration Date Visits Re quested Visits Authorized [id number] Closed 01/19/2025 04/20/2026 1 1 Reason for Visit * Diagnostic Imaging (Routine) - Closed Specialty Diagnoses / Procedures Referred By Contac t Referred To Contact Diagnoses Nonrheumatic mitral valve regurgitation Procedures Adult Transthoracic Echo Complete W/ Cont if Necessary Per Protocol [facility] [place] [address] Phone: tel: fax: [address] [address] Phone: tel: Referral ID Status Reason Start Date Expiration Date Visits Re quested Visits Authorized [id number] Closed 01/19/2025 04/20/2026 1 1 Encounter Details Date Type Department Care Team (Late st Contact Info) Description 04/25/2025 10:08 AM EDT - 04/25/2025 11:59 PM EDT Hospital Encounter [facility] [address] [place] [address] Brian Amador MD [address] [facility] [address] [place] [address] Nonrheumatic mitral valve regurgitation Discharge Disposition: Home or Self Care Social History Tobacco Use Types Packs/Day Years Used Date Smoking Tobacco: Former Cigarettes Q uit: 2000 Passive Smoke Exposure: Past Smokeless Tobacco: Never Alcohol Use Standard Drinks/Week Comments No 0 (1 standard drink = 0.6 oz pur e alcohol) AUDIT-C Answer Date Recorded Q1: How often do you have a drink containing alcohol? Never 12/15/2024 Q2: How many drinks containi ng alcohol do you have on a typical day when you are drinking? Patient does not drink Q3: How often do you have si x or more drinks on one occasion? Never 12/15/2024 Abuse Screen Answer Date Recorded Feels Unsafe at Home or Work/School no 12/15/2024 Feels Threatened by Someone no 04/2025 Does Anyone Try to Keep You From Having Contact with Others or Doing Things Outside Your Home? no 12/15/2024 Physical Signs of Abuse Present no 12/15/2024 Housing Stability Answer Date Recorded Current Living Arrangements home 04/2025 Potentially Unsafe Housing Conditions Not on aries e 12/15/2024 Disabilities Answer Date Recorded Difficulty Concentrating, Remembering or Making Decisions no 12/15/2024 Difficulty Managing Errands Independently no 12/15/2024 Comments No Sex and Gender Information Value Date Recorded Sex Assigned at Not on file Legal Sex Female 10:13 AM EDT Gender Identity Not on file Sexual Orientation Not on file documented as of this encounter Medications at Time of Discharge josepol sulfate HFA 108 (90 Base) MCG/ACT inhaler Inhale 2 puffs Every 6 (Six) Hours. 05/14/2022 aspirin 81 MG EC tablet Take 1 tablet by mouth Daily. atorvastatin (LIPITOR) 80 MG tablet Take 0.5 tablets by mouth Daily. 90 tablet 3 02/28/2025 clopidogrel (PLAVIX) 75 MG tablet Take 1 tablet by mouth Daily. 30 tablet 11 12/08/2024 docusate sodium (COLACE) 100 MG capsule Take 1 capsule by mouth As Needed. metoprolol tartrate (LOPRESSOR) 25 MG tablet Take 1 tablet by mouth 2 (Two) Times a Day. 180 tablet 1 02/28/2025 nitroglycerin (NITROSTAT) 0.[address] 1 TABLET UNDER THE TONGUE EVERY 5 MINUTES NEEDED FOR CHEST PAIN. TAKE NO MORE THAN 3 DOSES IN 15 MINUTES 25 tablet 6 09/22/2024 O2 (OXYGEN) Inhale 2 L/min 1 (One) Time. 2.5 liters at night Trelegy Ellipta 100-62.5-25 MCG/ACT inhaler Inhale 1 puff Daily. 06/06/2024 documented as of this encounter Plan of Treatment Upcoming Encounters Date Type Department Care Team (Late st Contact Info) Description 08/31/2025 2:30 PM EDT Office Visit [facility] [address] [place] [address] [place] [address] Brian Amador MD [address] [facility] [address] [facility] [address] [place] [address] documented as of this encounter Procedures Procedure Name Priority Date/Time Associated Diagnosis Comments ECHO COMPLETE W/ DOPPLER AND COLOR FLOW Routine 04/25/2025 11:13 AM EDT Nonrheumatic mitral valve regurgitation documented in this encounter Results * ECHO COMPLETE W/ DOPPLER AND COLOR FLOW (04/25/2025 11:13 AM EDT) EF(MOD-bp) 52.1 % LVIDd 4.7 cm LVIDs 3.3 cm IVSd 1.10 cm LVPWd 1.10 cm FS 29.3 % IVS/LVPW 1.00 cm ESV(cubed) 36.7 ml LV Sys Vol (BSA corrected) 30.7 cm2 EDV(cubed) 103.8 ml LV Sherwood Vol (BSA corrected) 55.6 cm2 LV mass(C)d 187.5 grams LVOT area 3.1 cm2 LVOT diam 1.99 cm EDV(MOD-sp2) 88.9 ml EDV(MOD-sp4) 96.6 ml ESV(MOD-sp2) 34.4 ml ESV(MOD-sp4) 53.4 ml SV(MOD-sp2) 54.5 ml SV(MOD-sp4) 43.2 ml SVi(MOD-SP2) 31.4 ml/m2 SVi(MOD-SP4) 24.9 ml/m2 SVi (LVOT) 35.4 ml/m2 EF(MOD-sp2) 61.3 % EF(MOD-sp4) 44.7 % MV E max jaxon 47.1 cm/sec MV A max jaxon 77.1 cm/sec MV dec time 0.47 sec MV E/A 0.61 Med Peak E' Jaxon 4.7 cm/sec Lat Peak E' Jaxon 6.0 cm/sec Avg E/e' ratio 8.80 SV(LVOT) 61.4 ml RV Base 3.7 cm RV Mid 3.1 cm RV Length 6.7 cm RV S' 12.6 cm/sec LA dimension (2D) 4.0 cm LV V1 max 88.7 cm/sec LV V1 max PG 3.1 mmHg LV V1 mean PG 2.00 mmHg LV V1 VTI 19.8 cm Ao pk jaxon 111.0 cm/sec Ao max PG 4.9 mmHg Ao mean PG 3.0 mmHg Ao V2 VTI 27.1 cm DREA(I,D) 2.27 cm2 Dimensionless Index 0.73 (DI) MV max PG 2.6 mmHg MV mean PG 0.86 mmHg MV V2 VTI 27.3 cm MV P1/2t 105.6 msec MVA(P1/2t) 2.08 cm2 MVA(VTI) 2.25 cm2 MV dec slope 233.5 cm/sec2 PA acc time 0.11 sec PI end-d jaxon 160.2 cm/sec Ao root diam 2.5 cm LA ESV Index (BP) 25.5 ml/m2 TAPSE (>1.6) 1.60 cm Anatomical Region Laterality Modality Ultrasound Narrative 04/25/2025 12:49 PM EDT Left ventricular ejection fraction appears to be 51 - 55% with mild lateral hypokinesia Left ventricular diastolic function is consistent with (grade I) impaired relaxation. Estimated right ventricular systolic pressure from tricuspid regurgitation is normal (<35 mmHg). Left Ventricle Left ventricular systolic function is normal. Calculated left ventricular EF = 52.1% Left ventricular ejection fraction appears to be 51 - 55%. Normal left ventricular cavity size and wall thickness noted. All left ventricular wall segments contract normally. Left ventricular diastolic function is consistent with (grade I) impaired relaxation. Right Ventricle Normal right ventricular cavity size, wall thickness, systolic function and septal motion noted. Left Atrium Normal left atrial size and volume noted. Right Atrium Normal right atrial cavity size noted. Mitral Valve The mitral valve is structurally normal with no significant stenosis present. Mild mitral valve regurgitation is present. Tricuspid Valve The tricuspid valve is structurally normal with no significant stenosis present. Physiologic tricuspid valve regurgitation is present. Estimated right ventricular systolic pressure from tricuspid regurgitation is normal (<35 mmHg). Aortic Valve The aortic valve is structurally normal with no regurgitation or stenosis present. Pulmonic Valve The pulmonic valve is structurally normal with no significant stenosis present. There is mild pulmonic valve regurgitation present. Pericardium The pericardium is normal. There is no evidence of pericardial effusion. . Greater Vessels No dilation of the aortic root is present. No dilation of the sinuses of Valsalva is present. us Brian Amador MD CV ECHO ORDERABLES Final Resul t documented in this encounter Visit Diagnoses Diagnosis Nonrheumatic mitral valve regurgitation documented in this encounter Additional Health Concerns Infection Onset Date Last Indicated Resolved Time MRSA Comment:Added from external infection. Source: [facility]. 11/24/2024 documented as of this encounter Care Teams Child Psychology Teacher Relationship Specialty Start Date End Date Noy Flaherty APRN [address] [facility] [address] [place] [address] PCP - General Family Medicine 05/25/23 documented as of this encounter
--- OUTSIDE RECORDS SUMMARY | 2025-06-23 11:18 | XMS_ITS | Encounter Summary ---
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 - [facility] Social History Tobacco Use Types Packs/Day Years Used Date Smoking Tobacco: Former Cigarettes Q uit: 2000 Smokeless Tobacco: Never Alcohol Use Standard Drinks/Week Comments No 0 (1 standard drink = 0.6 oz pur e alcohol) Comments Unknown Sex and Gender Information Value Date Recorded Sex Assigned at Not on file Legal Sex Female 10:13 AM EDT Gender Identity Not on file Sexual Orientation Not on file documented as of this encounter Plan of Treatment Upcoming Encounters Date Type Department Care Team (Late st Contact Info) Description 08/31/2025 2:30 PM EDT Office Visit [facility] [address] [facility] [place] [address] Brian Amador MD [address] [facility] [address] [facility] [address] [place] [address] documented as of this encounter Visit Diagnoses Not on filedocumented in this encounter Additional Health Concerns Infection Onset Date Last Indicated Resolved Time MRSA Comment:Added from external infection. Source: Healthcare. 11/24/2024 documented as of this encounter Care Teams Ux Lead Relationship Specialty Start Date End Date Noy Flaherty APRN [address] [place] [address] PCP - General Family Medicine 05/25/23 documented as of this encounter
--- OUTSIDE RECORDS SUMMARY | 2025-06-23 11:18 | XMS_ITS | Encounter Summary ---
[facility] Address [address] [place] [address] Care Team Providers Care Milk Tester Name Role Phone Noy Flaherty APRN Primary Care Provid er Reason for Visit * Reason Onset Date Comments Results 04/25/2025 Encounter Details Date Type Department Care Team (Late st Contact Info) Description 04/25/2025 Telephone [facility] [address] [facility] [address] [place] [address] Brian Amador MD [address] [facility] [address] [place] [address] Results Social History Tobacco Use Types Packs/Day Years [...] on file documented as of this encounter Miscellaneous Notes * Telephone Encounter - Misty Schroeder RN - 04/25/2025 3:29 PM EDT Images from the original note were not included. Brian Amador MD Jackson, Kristina, ALLEGRA Echo acceptable EF greater than 51% Pt called informed of the above results, verbalized understanding. documented in this encounter Plan of Treatment Upcoming Encounters Date Type Department Care Team (Late st Contact Info) Description 08/31/2025 2:30 PM EDT Office Visit [facility] [address] [place] [address] [place] [address] Brian Amador MD [address] [facility] [address] [facility] [address] [place], [place] [id number] documented as of this encounter Visit Diagnoses Not on filedocumented in this encounter Additional Health Concerns Infection Onset Date Last Indicated Resolved Time MRSA Comment:Added from external infection. Source: Healthcare. 11/24/2024 documented as of this encounter Care Teams Milk Tester Relationship Specialty Start Date End Date Noy Flaherty APRN [address] [place] [address] PCP - General Family Medicine 05/25/23 documented as of this encounter
--- OUTSIDE RECORDS SUMMARY | 2025-06-23 11:18 | XMS_ITS | Encounter Summary ---
[facility] [address] [place] [address] Care Team Providers Care Judge Clerk Name Role Phone Noy Flaherty APRN Primary Care Provid er Encounter Details Date Type Department Care Team (Latest Contact Info) Description 04/25/2025 Travel Social History Tobacco Use Types Packs/Day Years [...] Description 08/31/2025 2:30 PM EDT Office Visit [facility] [address] [place] [address] [place] [address] Brian Amador MD [address] [facility] [address] [place] [address] documented as of this encounter Visit Diagnoses Not on filedocumented in this encounter Additional Health Concerns Infection Onset Date Last Indicated Resolved Time MRSA Comment:Added from external infection. Source: [facility]. 11/24/2024 documented as of this encounter Care Teams Judge Clerk Relationship Specialty Start Date End Date Noy Flaherty APRN [address] [place] [address] PCP - General Family Medicine 05/25/23 documented as of this encounter
--- OUTSIDE RECORDS SUMMARY | 2025-06-23 11:18 | XMS_ITS | Clinical Summary ---
Author Organization [facility] Address [address] [place] [address] Care Team Providers Care Hand Fabric Cutter Name Role Phone Noy Flaherty APRN Primary Care Provider [phone] Cain Us MD Unavailable [phone] Allergies No known active allergies Medications nitroglycerin (Nitrostat) 0.[address] 1 tablet (0.4 mg) under the tongue every 5 (five) minutes if needed. 4 Active aspirin 81 MG EC tablet Take 1 tablet (81 mg) by mouth 1 (one) time each day. Active atorvastatin (Lipitor) 80 MG tablet Take 0.5 tablets (40 mg) by mouth every night. 90 tablet 5 Active benzonatate (Tessalon) 100 MG capsule Take 1 capsule (100 mg) by mouth 3 (three) times a day if needed for cough. Do not crush or chew. 40 capsule 5 Active metoprolol tartrate (Lopressor) 25 MG tablet Take 1 tablet (25 mg) by mouth 2 (two) times a day. 180 tablet 5 Active mometasone-form oterol (Dulera 200) 200-5 MCG/ACT inhaler Inhale 2 puffs 2 (two) times a day. Rinse mouth with water after use to reduce aftertaste and incidence of candidiasis. Do not swallow. 36 g 5 Active Tiotropium [place] Monohydrate (Spiriva Respimat) 2.5 MCG/ACT inhaler Inhale 2 puffs 1 (one) time each day. 4 g 5 Active ipratropium-alb uterol (Duo-Neb) 0.5-2.5 mg/3 mL nebulizer solution Take 3 mL by nebulization every 6 (six) hours if needed for wheezing. 180 mL 5 Active nitroglycerin (Nitrostat) 0.[address] 1 tablet (0.4 mg) under the tongue every 5 (five) minutes if needed for chest pain. 25 tablet 3 5 Active Active Problems Problem Noted Date Diagnosed Date Ischemic cardiomyopathy 11/26/2024 ILD (interstitial lung disease) 11/26/2024 Overview (11/27/2024): Evidence of possible fibrotic changes per CXR this AM and imaging from admission in setting of prolonged smoking - May require additional workup as an outpatient - Significantly reduced DLCO Chronic obstructive pulmonar y disease with acute lower respiratory infection 11/26/2024 Overview (11/26/2024): See Acute hypoxic RF HFrEF (heart failure with reduced ejection fract ion) 11/19/2024 Overview (11/26/2024): Noted per OSH ECHO in 2019, appears to have normal EF on admission and managed with medical therapies GDMT HAP (hospital-acquired pneumonia) 11/19/2024 Overview (11/27/2024): Noted per imaging on 11/24, admitted for approximately 1 week prior to this -MRSA PCR positive - Continue Vanco and Cefepime (D3), Azithro (D2) of 5 CAD, multiple vessel 11/18/2024 Overview (11/26/2024): Demonstrated per [facility] 11/18 - Pending surgical plan with acute decompensation -GDMT H/O heart artery stent 11/18/2024 Overview (11/27/2024): ASA Centrilobular emphysema 11/18/2024 Overview (11/26/2024): Noted per imaging with significant reduction of DLCO and mild obstruction on PFTs - Currently on treatment for possible COPD exacerbation Hyperlipidemia 11/18/2024 Overview (11/26/2024): Statin therapy Tobacco abuse 11/18/2024 Overview (11/26/2024): NRT as needed, currently not requiring Gastroesophageal reflux disease without esophagi tis 11/18/2024 Overview (11/26/2024): Continue PPI Resolved Problems Problem Noted Date Diagnosed Date Resolved Date Diuresis 11/27/2024 11/27/2024 Cardiac volume overload 11/26/202411/10 Overview (11/27/2024): BNP up to 3189 on admission with pulmonary edema on CXR - Diuresis today, Goal NN 1-1.5 L - Ramírez with strict I and O - Fluid restrict 1.8 L Acute hypoxic respiratory failure 11/26/2024 12/01/2024 Overview (11/27/2024): No Home O2 required - 2 L NC on admission - Empiric Vanco and Cefepime started 11/24 - Diuresis 11/25 and 11/26 - Daily weights, ramírez for strict I and O - Daily CXR - Sputum culture and GMS, atypical work up negative - Continue Azith for pleotrophic effect Electrolyte disturbance 11/26/202411/10 Overview (11/26/2024): CTM and manage as appropriate Sepsis 11/26/2024 12/01/2024 Overview (11/26/2024): Secondary to HAP - On Empiric therapy - See hypoxic RF - Lactate WNL on AM ABG Muscular deconditioning 11/26/202411/09 Physical deconditioning 11/26/202411/09 At risk for impaired mobility 11/26/2024 11/26/2024 Anticoagulated 11/26/2024 11/26/2024 Preop cardiovascular exam 11/26/2024 Preoperative clearance 11/26/202411/26 Abnormal arterial blood gases 11/26/2024 11/26/2024 Infiltrate of right lung pre sent on chest x-ray 11/26/2024 11/26/2024 Left pulmonary infiltrate on CXR 11/26/2024 11/26/2024 H/O chest x-ray 11/26/2024 11/26/2024 Encounter for routine chest x-ray 11/26/2024 11/26/2024 Diuresis 11/26/2024 11/26/2024 At high risk for hypovolemia 11/26/2024 11/26/[address] 11/26/202411/09 At risk for infection associ ated with Ramírez catheter 11/26/2024 11/26/2024 Nutrition deficiency due to insufficient food 11/26/19 25 11/26/2024 Acute nutritional deficiency 11/26/2024 11/26/2024 Weight gain 11/26/2024 11/26/2024 Increased infection risk 11/26/2024 NSTEMI (non-ST elevated myoc ardial infarction) 11/18/2024 12/01/2024 Overview (11/26/2024): ACS heparin protocol S/P LHC at OSH with attempted PCI - Plavix at OSH, AsA at [facility] - Pending surgical plan Social History Tobacco Use Types Packs/Day Years Used Date Smoking Tobacco: Every Day Cigarettes 0.5 0.6 Started: 2024 Smokeless Tobacco: Never Tobacco Cessation:Ready to Q uit: Not Asked; Counseling Given: Not Answered Alcohol Use Standard Drinks/Week Comments Never 0 (1 standard drink = 0.6 oz pur e alcohol) Humiliation, Afraid, Rape, and Kick questionnair e Answer Date Recorded Within the last year, have y ou been afraid of your partner or ex-partner? No 11/21/2024 Within the last year, have y ou been humiliated or emotionally abused in other ways by your partner or ex-partner? No Within the last year, have y ou been kicked, hit, slapped, or otherwise physically hurt by your partner or ex-partner? No 11/21/2024 Within the last year, have y ou been raped or forced to have any kind of sexual activity by your partner or ex-partner? No 11/21/2024 Hunger Vital Sign Answer Date Recorded Within the past 12 months, y ou worried that your food would run out before you got the money to buy more. Never true 11/21/19 25 Within the past 12 months, t he food you bought just didn't last and you didn't have money to get more. Never true 11/21/2024 PRAPARE - Transportation Answer Date Re corded In the past 12 months, has l ack of transportation kept you from medical appointments or from getting medications? No 11/09 In the past 12 months, has l ack of transportation kept you from meetings, work, or from getting things needed for daily living? No 11/21/2024 Housing Stability Vital Sign Answer Federico e Recorded In the last 12 months, was t here a time when you were not able to pay the mortgage or rent on time? No 11/21/2024 Number of Times Moved in the Last Year Not on fi le 11/21/2024 At any time in the past 12 m [facility], were you homeless or living in a long-term (including now)? No 11/21/2024 Utilities Answer Date Recorded In the past 12 months has th e electric, gas, oil, or water company threatened to shut off services in your home? No 11/21/2024 Comments Unknown Sex and Gender Information Value Date Recorded Sex Assigned at Not on file Legal Sex Female 8:30 AM EST Gender Identity Not on file Sexual Orientation Not on file Last Filed Vital Signs Vital Sign Reading Time Taken Comments Blood Pressure 113/61 12/01/2024 7:49 AM EST Pulse 73 12/01/2024 7:49 AM EST Temperature 36.5 C (97.7 F) 12/01/2024 7:49 AM EST Respiratory Rate 26 12/01/2024 7:49 AM EST Oxygen Saturation 90% 12/01/2024 7:49 AM EST Inhaled Oxygen Concentration - - Weight 62.8 kg (138 lb 7.2 oz) 12/01/2024 5:46 A M EST Height 170.2 cm (5' 7 ) 11/18/2024 5:33 PM EST Body Mass Index 21.68 11/18/2024 5:33 PM EST Plan of Treatment Health Maintenance Due Date Last Done Comments [facility]-Bone Density Scan 1947 [facility]-Depression Screening 1947 [facility]-Hepatitis C Screening 1945 [facility]-Medicare Annual Wellness (AWV) 1945 [facility]-Infant/Child/Adol SDOH Screenings 1945 [facility]-DTaP,Tdap,and Td Vaccines (1 - Tdap) 1966 [facility]-Hepatitis A Vaccines (1 of 2 - Risk 2-dose series) 1966 [facility]-Pneumococcal Vaccine: 50+ Years (1 of 2 - PCV) 1966 [facility]-Zoster Vaccines (1 of 2) 1997 [id number] Vaccine ( season) 2025 07/20/2024, 08/11/2023, 08/14/2022, Additional history exists [facility]- SDOH Screenings 05/21/2025 [facility]-Adult SDOH Screenings 05/21/2025 11/21/2024 [facility]-Influenza Vaccine (#1) 07/10/202507/20, 08/06/2023, 06/27/2022 [facility]-RSV Vaccine: 60+ Years or Completed 08/06/2023 HPV Vaccines Aged Out No longer eligi ble based on patient's age to complete this topic [facility]-HIB Vaccines Aged Out No longer e ligible based on patient's age to complete this topic [facility]-IPV Vaccines Aged Out No longer e ligible based on patient's age to complete this topic [facility]-Rotavirus Vaccines Aged Out No lo nger eligible based on patient's age to complete this topic Additional Health Concerns Infection Onset Date Last Indicated MRSA 11/24/2024 11/24/2024 Insurance MEDICARE AARP Advance Directives * Full Code (Latest Code Status on File) Date Activated Date Inactivated Comments 11/18/2024 5:34 PM 12/01/2024 5:01 PM Question Answer Comments Patient has decision-making capacity? Yes Care Teams Hand Fabric Cutter Relationship Specialty Start Date End Date Noy Flaherty APRN [address] [address] PCP - General 11/18/24 Cani Us MD [address] [place] [address] [address] [place] [address] Cardiology 11/28/24
--- OUTSIDE RECORDS SUMMARY | 2025-06-23 11:18 | XMS_ITS | Encounter Summary ---
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 - [facility] Social History Tobacco Use Types Packs/Day Years Used Date Smoking Tobacco: Never Assessed Comments Unknown Sex and Gender Information Value Date Recorded Sex Assigned at Not on file Legal Sex Female 10:13 AM EDT Gender Identity Not on file Sexual Orientation Not on file documented as of this encounter Plan of Treatment Upcoming Encounters Date Type Department Care Team (Late st Contact Info) Description 08/31/2025 2:30 PM EDT Office Visit [facility] [address] [facility] [place] [address] Brian Amador MD [address] [facility] [address] [facility] [address] [place] [address] documented as of this encounter Visit Diagnoses Not on filedocumented in this encounter Additional Health Concerns Infection Onset Date Last Indicated Resolved Time MRSA Comment:Added from external infection. Source: [facility]. 11/24/2024 documented as of this encounter Care Teams Telephoner Relationship Specialty Start Date End Date Noy Flaherty APRN [address] [place], [place] [id number] PCP - General Family Medicine 05/25/23 documented as of this encounter
--- OUTSIDE RECORDS SUMMARY | 2025-06-23 11:18 | XMS_ITS | Clinical Summary ---
Author Organization [facility] Address [address] [place] [address] Care Team Providers Care Loss Prevention Detective Name Role Phone Noy Flaherty APRN Primary Care Provid er Allergies Active Allergy Reactions Criticality Noted Date Comments Clopidogrel Bisulfate Other (See Comments) 01/08 bruising Medications aspirin 81 MG EC tablet Take 1 tablet by mouth Daily. Active docusate sodium (COLACE) 100 MG capsule Take 1 capsule by mouth As Needed. Active albuterol sulfate HFA 108 (90 Base) MCG/ACT inhaler Inhale 2 puffs Every 6 (Six) Hours. 05/14/2022 Active Trelegy Ellipta 100-62.5-25 MCG/ACT inhaler Inhale 1 puff Daily. 06/06/2024 Active nitroglycerin (NITROSTAT) 0.[address] 1 TABLET UNDER THE TONGUE EVERY 5 MINUTES NEEDED FOR CHEST PAIN. TAKE NO MORE THAN 3 DOSES IN 15 MINUTES 25 tablet 6 09/22/2024 Active O2 (OXYGEN) Inhale 2 L/min 1 (One) Time. 2.5 liters at night Active clopidogrel (PLAVIX) 75 MG tablet Take 1 tablet by mouth Daily. 30 tablet 11 12/08/2024 Active metoprolol tartrate (LOPRESSOR) 25 MG tablet Take 1 tablet by mouth 2 (Two) Times a Day. 180 tablet 1 02/28/2025 Active atorvastatin (LIPITOR) 80 MG tablet Take 0.5 tablets by mouth Daily. 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 Total occlusion of major OEM treated with PCI Cardiolite GXT (02/29/2004): Small amount reversible ischemia base of inferior wall Cardiac cath (10/10/2004): PTCA/brachytherapy of mid circumflex with in-stent restenosis Cardiolite GXT (12/15/2019): No ischemia Echo (11/20/2024): LVEF 63%. No significant valvular abnormality Cardiac cath for NSTEMI (12/05/2024): Unsuccessful angioplasty of left circumflex due to undilatable lesion Ischemic heart disease Overview (12/15/2024): Hiatal hernia Overview (11/14/2016): Hiatal hernia/GERD, treatment for H. pylori, spring 2006. Encounters Date Type Department Care Team Description 04/25/2025 10:08 AM EDT - 04/25/2025 11:59 PM EDT Hospital Encounter [facility] [address] [place] [address] Brian Amador MD Nonrheumatic mitral valve regurgitation Discharge Disposition: Home or Self Care 04/25/2025 Telephone [facility] [address] [place] [address] [address] [place] [address] Brian Amador MD Results 04/25/2025 Travel from Last 3 Months Immunizations Immunization Administration Dates Next Due Fluad Quad 65+ 06/27/2022 Hepatitis B Adult/Adolescent IM 02/06/2012,08/04,07/03/2011 Family History Medical History Relation Name Comments Cancer Father Heart disease Mother Relation Name Status Comments Father Mother Social History Tobacco Use Types Packs/Day Years Used Date Smoking Tobacco: Former Cigarettes Q uit: 2000 Passive Smoke Exposure: Past Smokeless Tobacco: Never Tobacco Cessation:Counseling Given: Not Answered Alcohol Use Standard Drinks/Week Comments No 0 [...] Sign Reading Time Taken Comments Blood Pressure 128/64 01/19/2025 11:08 AM EDT Pulse 76 01/19/2025 11:08 AM EDT Temperature 36.1 C (96.9 F) 12/15/2024 7:23 AM EST Respiratory Rate 14 12/15/2024 11:58 AM EST Oxygen Saturation 95% 01/19/2025 11:08 AM EDT Inhaled Oxygen Concentration - - Weight 63.5 kg (140 lb) 01/19/2025 11:08 AM EDT Height 170.2 cm (5' 7 ) 01/19/2025 11:08 AM EDT Body Mass Index 21.93 01/19/2025 11:08 AM EDT Plan of Treatment Upcoming Encounters Date Type Department Care Team (Late st Contact Info) Description 08/31/2025 2:30 PM EDT Office Visit [facility] [address] [facility] [place] [address] Brian Amador MD [address] [place] [address] Health Maintenance Due Date Last Done Comments Pneumococcal Vaccine 50+ (1 of 2 - PCV) 1964 TDAP/TD VACCINES (1 - Tdap) 1964 COLOGUARD 02/21/1992 CT COLONOGRAPHY 02/21/1992 FECAL OCCULT BLOOD TEST 02/21/1992 FIT Testing (1 year) 02/21/1992 ZOSTER VACCINE (1 of 2) 1997 ANNUAL WELLNESS VISIT 09/04/2017 HEPATITIS C SCREENING 09/04/2017 RSV Vaccine - Adults (1 - 1- dose 75+ series) 2022 DXA SCAN 02/26/2024 02/25/2022, 06/30/2017 COVID-19 Vaccine (8 - 2023-2 5 season) 2025 07/20/2024, 08/11/2023, 08/14/2022, Additional history exists INFLUENZA VACCINE 08/09/2025 07/20/2024, , 08/06/2023, Additional history exists LIPID PANEL 11/18/2025 11/18/2024, 11/09, 01/31/2022, Additional history exists COLON CANCER SCREENING 5 YEA R SIGMOIDOSCOPY 03/18/2027 03/18/2022 COLONOSCOPY 03/28/2031 03/28/2021, 11/15/2020 COLORECTAL CANCER SCREENING 03/28/2031 Procedures Procedure Name Priority Date/Time Associated Diagnosis Comments ECHO COMPLETE W/ DOPPLER AND COLOR FLOW Routine 04/25/2025 11:13 AM EDT Nonrheumatic mitral valve regurgitation from Last 3 Months Results * ECHO COMPLETE W/ DOPPLER AND [...] MD CV ECHO ORDERABLES Final Resul t from Last 3 Months Additional Health Concerns Infection Onset Date Last Indicated MRSA Comment:Added from external infection. Source: Healthcare. 11/24/2024 Insurance MEDICARE A & B [facility] HEALTH CARE OPTIONS Advance Directives * CPR (Attempt to Resuscitate) (Latest Code Status on File) Date Activated Date Inactivated Comments 12/15/2024 12:10 PM 12/15/2024 7:28 PM Question Answer Comments Code Status (Patient has no pulse and is not breathing): CPR (Attempt to Resuscitate) Medical Interventions (Patie nt has pulse or is breathing): Full Support Care Teams Loss Prevention Detective Relationship Specialty Start Date End Date Noy Flaherty APRN [address] [place] [address] PCP - General Family Medicine 05/25/23
--- OUTSIDE RECORDS SUMMARY | 2025-06-23 11:18 | XMS_ITS | Encounter Summary ---
Author Organization [facility] Address [address] [place] [address] Care Team Providers Care Ammonium Nitrate Crystallizer Name Role Phone Noy Flaherty APRN Primary Care Provider [phone] Cain Us MD Unavailable [phone] Encounter Details Date Type Department Care Team (Late st Contact Info) Description 11/29/2024 Lab Requisition [facility] [address] [place] [address] Cy Valadez MD [address] [facility] [address] [place] [address] Encounter for general adult medical examination without abnormal findings Social History Tobacco Use Types Packs/Day Years Used Date Smoking Tobacco: Every Day Cigarettes 0.5 0.6 Started: 2024 Smokeless Tobacco: Never Alcohol Use Standard Drinks/Week Comments Never 0 [...] any time in the past 12 m [facility], were you homeless or living in a assisted (including now)? No 11/21/2024 Utilities Answer Date [...] on file documented as of this encounter Functional Status * Calculated C-SSRS Risk Score (Lifetime/Recent) Answer Date of Assessment Author No Risk Indicated 12/01/2024 7:00 AM Nina Soria RN * Question Answer Date of Assessment Author 1. Wish to be (Past 1 Month) No 12/01/2024 7:00 AM Alonso Mancia RN 2. Non-Specific Active Suicidal Thoughts (Past 1 Month) No 12/01/2024 7:00 AM Alonso Mancia RN 6. Suicidal Behavior (Lifetime) No 12/01/2024 7:00 AM Alonso Mancia RN documented as of this encounter Plan of Treatment Not on file documented as of this encounter Procedures Procedure Name Priority Date/Time Associated Diagnosis Comments MULTI DRUG RESISTANCE TEST Routine 11/28/2024 8:55 AM EST Encounter for general adult medical examination without abnormal findings documented in this encounter Results * Multi Drug Resistance Test (11/28/2024 8:55 AM EST) Culture No growth at day 1 11/30/2024 8:02 AM EST [facility] Swab (Nares and Vivian Rectal) 11/28/2024 8:55 AM EST 11/29/2024 10:43 AM EST us Cy Valadez MD LAB MICROBIOLOGY - GEN ERAL ORDERABLES Final Result [facility] [address] [place] [address] documented in this encounter Visit Diagnoses Diagnosis Encounter for general adult medical examination without abnormal findings documented in this encounter Additional Health Concerns Infection Onset Date Last Indicated Resolved Time MRSA 11/24/2024 11/24/2024 MRSA Escalation Plan Comment:MRSA Escalation Plan is in effect as of 07/08/2024. Patient will require contact precautions for the duration of the hospital admission, regardless of movement to another unit. This infection may be resolved upon discharge from the hospital. 12/01/2024 12/01/2024 12/02/2024 5:[address] Assessment Noted Time A Body Mass Index follow-up plan has been documented for the patient 12/01/2024 12:22 PM EST documented as of this encounter Care Teams Ammonium Nitrate Crystallizer Relationship Specialty Start Date End Date Noy Flaherty APRN [address] [facility] [address] [place] [address] PCP - General 11/18/24 Cain Us MD [address] [place] [address] [address] [place] [address] Cardiology 11/28/24 documented as of this encounter
[2025-06-23 11:22] LABS: Microscopic, Urine URINE MICROSCOPIC (MICROSCOPIC)
[2025-06-23 11:57] LABS: Bilirubin,Urine Negative (Negative); Color,Urine YELLOW (Yellow); Glucose,Urine (UA) Negative (Negative); Ketones,Urine Negative (Negative); Leukocyte Esterase,Urine Negative (Negative); PH,Urine 5.5 (5.0-8.5); Protein,Urine Negative (Negative); Urobilinogen,Urine 0.2 EU/dl (0.2)
[2025-06-23 12:50] LABS: Specific Gravity, Urine 1.010 (1.005-1.030)
[2025-06-23 16:00] LABS: Bacteria,Urine 3+ /lpf; RBC,Urine Occasional #/hpf (0-3)
== END 2025-06-23 23:59 | disposition home or self-care (01) ==
LOC: LAB.DROPOF 11:15
PROVIDERS: PCP Nurse Practitioner Family; Visit Provider Nurse Practitioner Family
DX: R32 Unspecified urinary incontinence (principal)
CPT/HCPCS: 81001; 87086; 87088; 87186

== ENCOUNTER 2025-07-25 09:53 | Outpatient (CLI) | payer MEDICARE, SELFPAY ==
--- OUTSIDE RECORDS SUMMARY | 2025-07-25 10:21 | XMS_ITS | Clinical Summary ---
Author Organization [facility] Address [address] [place] [address] Care Team Providers Care Sales Support Engineer Name Role Phone Noy Flaherty APRN Primary [...] hypertension 12/15/2024 Coronary artery disease invo lving [place] coronary artery of [place] heart with angina pectoris 12/08/2024 Overview (12/15/2024): Cardiac cath for non-Q wave [place] (02/26/2001): LVEF 55% with distal lateral wall [...] - 04/25/2025 11:59 PM EDT Hospital Encounter [facility] [address] [place] [address] Brian Amador MD Nonrheumatic mitral valve regurgitation Discharge Disposition: Home or Self Care 04/25/2025 Telephone [facility] [address] [place] [address] [address] [place] [address] Brian Amador MD Results 04/25/2025 [...] Description 08/31/2025 2:30 PM EDT Office Visit [facility] [address] [facility] [place] [address] Brian Amador MD [address] [place] [address] Health Maintenance Due Date Last Done Comments [...] DXA SCAN 02/26/2024 02/25/2022, 06/30/2017 COVID-19 Vaccine ( - 2023-2 5 season) 2025 07/20/2024, 08/11/2023, [...] Healthcare. 11/24/2024 Insurance MEDICARE A & B [facility] HEALTH CARE OPTIONS Advance Directives * CPR (Attempt to Resuscitate) (Latest Code Status on File) Date Activated Date Inactivated Comments 12/15/2024 12:10 PM 12/15/2024 7:28 PM Question Answer Comments Code Status (Patient has no pulse and is not breathing): CPR (Attempt to Resuscitate) Medical Interventions (Patie nt has pulse or is breathing): Full Support Care Teams Sales Support Engineer Relationship Specialty Start Date End Date Noy Flaherty APRN [address] [place] [id number] PCP - General Family Medicine 05/25/23
--- OUTSIDE RECORDS SUMMARY | 2025-07-25 10:21 | XMS_ITS | Encounter Summary ---
[facility] Organization [facility] Address [address] [place] [address] Care Team Providers Care Home Care And Home Health Aides Teacher Name Role Phone Noy Flaherty APRN Primary Care Provid er Encounter Details Date Type Department Care Team (Late st Contact Info) Description 08/29/2014 External CPT II OLAP DEVELOPER - [facility] Social History Tobacco Use [...] EDT Office Visit [facility] [address] [facility] [place] [address] Brian Amador MD [address] [facility] [address] [facility] [address] [place] [address] documented as of this encounter Visit Diagnoses Not on filedocumented in this encounter Additional Health Concerns Infection Onset Date Last Indicated Resolved Time MRSA Comment:Added from external infection. Source: Healthcare. 11/24/2024 documented as of this encounter Care Teams Home Care And Home Health Aides Teacher Relationship Specialty Start Date End Date Noy Flaherty APRN [address] [place], [place] [id number] PCP - General Family Medicine 05/25/23 documented as of this encounter
--- OUTSIDE RECORDS SUMMARY | 2025-07-25 10:21 | XMS_ITS | Clinical Summary ---
Author Organization [facility] Address [address] [place] [address] Care Team Providers Care Solution Maker Name Role Phone Noy Flaherty APRN Primary Care Provider [phone] Cain Us MD Unavailable [phone] Allergies No known active allergies Medications nitroglycerin [...] not swallow. 36 g 5 Active Tiotropium [place] Monohydrate (Spiriva Respimat) 2.5 MCG/ACT inhaler Inhale [...] multiple vessel 11/18/2024 Overview (11/26/2024): Demonstrated per [facility] 11/18 - Pending surgical plan with acute [...] Date Smoking Tobacco: Every Day Cigarettes 0.5 0.7 Started: 2024 Smokeless Tobacco: Never Tobacco Cessation:Ready [...] any time in the past 12 m [facility], were you homeless or living in a fdc (including now)? No 11/21/2024 Utilities Answer Date [...] 1966 [facility]-Zoster Vaccines (1 of 2) 1997 [facility]- SDOH Screenings 05/21/2025 [facility]-Adult SDOH Screenings 05/21/2025 11/21/2024 [id number] Vaccine ( season) 2025 07/20/2024, 08/11/2023, 08/14/2022, Additional history exists [facility]-Influenza Vaccine (#1) 07/10/202507/20, 08/06/2023, 06/27/2022 [facility]-RSV [...] Date Last Indicated MRSA 11/24/2024 11/24/2024 Insurance [facility] Richie Sruthi RODAS, [place] [id number] MEDICARE [employer] Advance Directives * Full Code (Latest Code Status on File) Date Activated Date Inactivated Comments 11/18/2024 5:34 PM 12/01/2024 5:01 PM Question Answer Comments Patient has decision-making capacity? Yes Care Teams Solution Maker Relationship Specialty Start Date End Date Noy Flaherty APRN [address] [address] PCP - General 11/18/24 Cain Us MD [address] [place] [address] [address] [place] [address] Cardiology 11/28/24
--- OUTSIDE RECORDS SUMMARY | 2025-07-25 10:21 | XMS_ITS | Encounter Summary ---
Author Organization [facility] [address] [place] [id number] Care Team Providers Care Director Public Name Role Phone Noy Flaherty APRN Primary Care Provid er Encounter Details Date Type Department Care Team (Late st Contact Info) Description 09/01/2017 External CPT II ASTRONOMY TEACHER - [facility] Social History Tobacco Use [...] Description 08/31/2025 2:30 PM EDT Office Visit [facility] [address] [facility] [place] [address] Brian Amador MD [address] [facility] [address] [facility] [address] [place] [address] documented as of this encounter Visit Diagnoses Not on filedocumented in this encounter Additional Health Concerns Infection Onset Date Last Indicated Resolved Time MRSA Comment:Added from external infection. Source: Healthcare. 11/24/2024 documented as of this encounter Care Teams Director Public Relationship Specialty Start Date End Date Noy Flaherty APRN [address] [place] [address] PCP - General Family Medicine 05/25/23 documented as of this encounter
--- OUTSIDE RECORDS SUMMARY | 2025-07-25 10:21 | XMS_ITS | Encounter Summary ---
Author Organization [facility] Address [address] [place] [address] Care Team Providers Care Band Instrument Repairer Name Role Phone Noy Flaherty APRN Primary Care Provider [phone] Cain Us MD Unavailable [phone] Encounter Details Date Type Department Care Team (Late st Contact Info) Description 11/29/2024 Lab Requisition [facility] [address] [place] [address] Cy Valadez MD [address] [facility] [address] [place] [address] Encounter for general adult medical examination without abnormal findings Social History Tobacco Use Types Packs/Day Years Used Date Smoking Tobacco: Every Day Cigarettes 0.5 0.7 Started: 2024 Smokeless Tobacco: Never Alcohol Use [...] any time in the past 12 m [facility], were you homeless or living in a retirement (including now)? No 11/21/2024 Utilities Answer Date [...] at day 1 11/30/2024 8:02 AM EST [facility] Swab (Nares and Vivian Rectal) 11/28/2024 8:55 AM EST 11/29/2024 10:43 AM EST us Cy Valadez MD LAB MICROBIOLOGY - GEN ERAL ORDERABLES Final Result [facility] [address] [place] [address] documented in this encounter Visit Diagnoses Diagnosis [...] documented as of this encounter Care Teams Band Instrument Repairer Relationship Specialty Start Date End Date Noy Flaherty APRN [address] [facility] [address] [place] [address] PCP - General 11/18/24 Cain Us MD [address] [place] [address] [address] [place] [address] Cardiology 11/28/24 documented as of this encounter
[2025-07-25 10:31] LABS: Hematocrit 34.5 % (37.0-47.0); Hemoglobin 11.0 g/dL (12.2-16.2); Mean Corpuscular HGB Conc 31.9 g/dL (31.8-35.4); Mean Corpuscular Hemoglobin 27.4 pg (27.0-31.2); Mean Corpuscular Volume 85.8 fl (81-99); Platelet Count 341 K/mm3 (142-424); Red Blood Count 4.02 M/mm3 (4.20-5.40); White Blood Count 9.7 K/mm3 (4.8-10.8)
[2025-07-25 10:37] LABS: Anion Gap 8.3 mEq/L (5-15); Blood Urea Nitrogen 14 mg/dl (7-17); Calcium 8.1 mg/dl (8.4-10.2); Carbon Dioxide 25 mmol/L (22.0-30.0); Chloride 108 mmol/L (98-107); Creatinine Clearance Estimated 51 mL/min (50-200); Creatinine,Serum 0.90 mg/dl (0.52-1.04); Estimated Glomerular Filt Rate 61 ml/min (>60); GFR (African American) 73 ML/MIN (>60); Glucose 107 mg/dl (74-100); Potassium 3.3 mmoL/L (3.5-5.1); Sodium 138 mmol/L (136-145)
[2025-07-25 12:25] LABS: RBC Morphology Normal; Total Cells Counted 100
[2025-07-26 12:11] VITALS: BMI 24.1
== END 2025-07-25 23:59 | disposition home or self-care (01) ==
LOC: PREOP 09:54
PROVIDERS: PCP Nurse Practitioner Family; Visit Provider Otolaryngology
DX: Z01.810 Encounter for preprocedural cardiovascular examination (principal); Z01.811 Encounter for preprocedural respiratory examination; Z01.812 Encounter for preprocedural laboratory examination; R94.31 Abnormal electrocardiogram [ECG] [EKG]; J44.9 Chronic obstructive pulmonary disease, unspecified; Z87.891 Personal history of nicotine dependence
CPT/HCPCS: 71046; 80048; 85007; 85014; 85018; 85048; 85049; 93005

== ENCOUNTER 2025-07-31 06:01 | Day surgery (SDC) | payer MEDICARE, SELFPAY ==
--- NOTE | 2025-07-25 10:16 | ECG_ITS ---
APPROVED REPORT Exam: Resting ECG HR:73 bpm ECG Measurements Heart Rate 73 AXES NH 141 P 46 QRSd 100 QRS -27 QT 401 T 76 QTc 426 Conclusion SINUS RHYTHM BORDERLINE LEFT AXIS DEVIATION [QRS AXIS < -20] NONSPECIFIC ST & T-WAVE ABNORMALITY BORDERLINE ECG UNCONFIRMED REPORT Electronically signed by : Dewayne Morejon MD 07/26/2025 08:28:35
[2025-07-25 10:20] VITALS: BMI 24.1
--- NOTE | 2025-07-25 10:21 | XR_ITS ---
FINAL REPORT CLINICAL HISTORY: pre-operative exam. patient has COPD, SOB, cough and is a former smoker COMPARISON: 11/16/2024 FINDINGS: 2 views of the chest were obtained . The heart is normal in size. The mediastinum is within normal limits. The lungs are clear. There is no pneumothorax. Osseous structures are unremarkable. IMPRESSION: No acute cardiopulmonary process. Reviewed, Interpreted and Dictated by Sulema Shukla MD Transcribed by Kenya Martin Authenticated and [facility]
--- NOTE | 2025-07-25 12:34 | PC.NURSE ---
left a message at Dr Amador's office regarding cardiac clearance and directions on pt's plavix and asa. Left callback number and fax number in message
[2025-07-31] VITALS (10 sets, daily range): BP systolic 91–142; BP diastolic 49–86; PULSE 56–67; RESP 16–20; TEMP 36.2–36.4; O2SAT 94–99; BMI 24.1
[2025-07-31] MEDS: LACTATED RINGERS 1000ML 1,000 ML 25 ML IV (06:19)
--- NOTE | 2025-07-31 06:55 | P.PNANES_ITS ---
[facility] Disclaimer: The information contained in this section may have been updated after the patient was seen, as this information can be updated by other users. Medical History Chronic otitis media with effusion Moderate hearing loss Fluid level behind tympanic membrane of right ear Eustachian tube dysfunction Deviated septum Inflammation of right eustachian tube Right serous otitis media HFrEF (heart failure with reduced ejection fraction) Abnormal echocardiogram Hyperlipidemia Hypertension History of [place] (myocardial infarction) Coronary artery disease History of left heart catheterization Urinary tract infection Pneumonia History of COVID-19 COPD (chronic obstructive pulmonary disease) Encounter for screening for malignant neoplasm of lung Nodule of right lung Allergic rhinitis Chronic cough History of smoking 30 or more pack years History of 2019 novel coronavirus disease (COVID-19) Dyspnea on exertion Surgical History History of hip surgery History of hysterectomy Family History Other No significant family history Social History Smoking Status: Current every day smoker tobacco type: cigarettes packs per day: 1 second hand exposure: Yes alcohol intake: never substance use type: denies use and other current occupational status: employed Travel in the last 8 weeks?: None household members: none housing: house current occupation: b[employer] current occupational exposures/hazards: No caffeine: Yes Have you lived/traveled outside US in past 30 days?: No Contact w/someone who lives/traveled outside US past 30 days?: No Exposure to someone with infectious disease in past 14 days?: No Do you have a fever (greater than 100.4 F or 38 C)?: No Have you tested positive for COVID-19?: No Exposed to someone with COVID-19 in past 14 days?: No Do you have a sore throat?: No Do you have a cough?: No Do you have any weakness?: No Do you have any diarrhea?: No Are you experiencing any unusual bleeding?: No Do you have any muscle aches/pain?: No Do you have any abdominal pain?: No Are you experiencing loss of taste or smell?: No [facility] Anesthesia Checklist Patient Identification Patient Identification: Arm Band and Other: Structural Data Admitted From: Home Planned Operative Procedure/s: Right ear Myringotomy Consent for Planned Operative Procedure(s) Verified: Yes Verified Documents: Surgical Consent and History and Physical NPO Status Verified Time NPO: 00:00 Additional verifications Patient : No Anesthesia Reactions: No Hx Blood Transfusions: No Blood Transfusion Reaction: No Cephalosporin Allergy: No Previous Colonoscopy: Yes Airway Assessment Mallampati Score:: Class II C-Spine Mobility Assessed: Yes TMJ Mobility Assessed: Yes Neurological Assessment Level of Consciousness: Awake, Alert, Appropriate and Follows Commands Hx Seizures: No Numbness or tingling in extremities: No Anesthesia Plan Anesthesia Risk discussed: Yes ASA Class: III Anesthesia Type: General Preoperative Comments Pre-Operative Comments: November COPD. Stent since 2,000.
[2025-07-31] MEDS: CIPRO 0.3%-DEX 0.1% OTIC SUSP 7.5ML 7.5 ML OT (07:48)
--- NOTE | 2025-07-31 08:01 | EXP.ANES.I ---
[facility] Anesthesia Record Part I Anesthesia Record I Intake, IV Amount: 300 Hydration: Adequate Estimated blood loss (mL): 0 Urine output (mL): 0 Blood Products used (#): none Blood Pressure: 97/49 SaO2: 99 Pulse Rate: 56 Airway Patency: Patent Respiratory Rate: 16 Temperature: 97.3 F Patient is:: Drowsy, Oral/Nasal airway and Stable Stable to PACU at:: 07:55
--- NOTE | 2025-07-31 08:04 | EXP.OP.NOTE ---
Date of procedure: 07/31/25 Pre-op Diagnosis:: Right serous otitis media Post-op Diagnosis:: Same Procedure performed:: Right myringotomy with tube placement Surgeon:: Filiberto Long III, MD Continuous Churn Buttermaker(s):: None PRINT CONTROLLER:: Morales Miller Anesthesia: GETA Estimated blood loss (mL): 0 Operative findings:: Serous otitis media right Operative note:: The patient was brought to the operating room placed under general inhalational anesthetic with IV sedation. The external auditory canal on the left side was cleaned and inspected under the microscope. The middle ear space was noted to be clear. The right side was inspected and noted to have a middle ear effusion. A radial incision was made inferiorly on the right and the middle ear space was evacuated of a serous effusion. A Duravent tube was placed through the incision followed by antibiotic drops. The patient was then awakened in the operating room and taken to the recovery room in good condition. Condition: stable Disposition: PACU Complications:: None
--- NOTE | 2025-07-31 15:00 | P.PNANES_ITS ---
[facility] Anesthesia Record Part II Anesthesia Record Part II Discharge Time: 08:55 Destination: Surgical Day Care (OP Surgery) PACU nurse assessment reviewed?: Yes Patient Condition:: Good Anesthesia Complications:: None Swallowing reflex intact?: Yes Airway Patency: Patent Cyanosis?: No Blood Pressure: 136/70 SaO2: 96 Respiratory Rate: 18 Pulse Rate: 56 Temperature: 97.6 F Mental Status: Alert & Oriented Pain level:: 0 Nausea and/or vomitting:: None Intake, IV Amount: 0 Hydration: Adequate
== END 2025-07-31 08:58 | disposition home or self-care (01) ==
PROVIDERS: PCP Nurse Practitioner Family; Visit Provider Otolaryngology
DX: H65.01 Acute serous otitis media, right ear (principal); J34.2 Deviated nasal septum; H69.91 Unspecified Eustachian tube disorder, right ear; J44.9 Chronic obstructive pulmonary disease, unspecified; I25.10 Atherosclerotic heart disease of native coronary artery without angina pectoris; I11.0 Hypertensive heart disease with heart failure; I50.20 Unspecified systolic (congestive) heart failure; I25.2 Old myocardial infarction; E78.5 Hyperlipidemia, unspecified; F17.210 Nicotine dependence, cigarettes, uncomplicated; Z79.51 Long term (current) use of inhaled steroids; Z79.82 Long term (current) use of aspirin; Z79.02 Long term (current) use of antithrombotics/antiplatelets; Z79.899 Other long term (current) drug therapy
CPT/HCPCS: 69436; 80048; 85007; 85014; 85018; 85048; 85049; J1100; J2003; J2405; J2704; J3010; J7120

== ENCOUNTER 2025-11-07 09:56 | Outpatient (CLI) | payer MEDICARE, SELFPAY ==
--- OUTSIDE RECORDS SUMMARY | 2025-10-19 11:00 | XMS_ITS | Encounter Summary ---
Author Organization [facility] Address [address] [place] [address] Care Team Providers Care Television Analyzer Name Role Phone Noy Flaherty APRN Primary Care Provid er Reason for Visit * Reason Comments Nonrheumatic mitral valve regurgitation Encounter Details Date Type Department Care Team (Late st Contact Info) Description 10/19/2025 11:00 AM EST Office Visit [facility] CARDIOLOGY [address] [place] [address] [place] [address] Brian Amador MD [address] [facility] [address] [place] [address] Coronary artery disease involving [place] coronary artery of sk[place] heart without angina pectoris (Primary Dx); Primary [...] Amador MD - 10/19/2025 11:00 AM EST [facility] Cardiology Office Progress Note Radha Leah Rivera [address] [place], [place] [id number] Visit Date: 10/19/25 PCP: Noy Flaherty, GARY [address] [place] [address] IDENTIFICATION: A 80 y.o. 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 Dr Melara' Aunt Dudu PROBLEM LIST: [...] intrastent restenosis; LVEF 70%, 10/10/2004. 10/27 echo [facility] EF 45% IR mild mr/tr 12/2019 cardiolite wnl EF 67% 12/05/24 NSTEMI [facility] attempted ISS PCI to Cx 01/03 LH [...] Diagnosis Plan 1. Coronary artery disease involving [place] coronary artery of sk[place] heart without angina pectoris 2. Primary hypertension 3. Mixed hyperlipidemia PLAN: CAD post remote PCI stenting continue DAPT, potentially DC aspirin without any bleeding issue Hypertension controlled atenolol low-dose Mixed dyslipidemia controlled on statin therapy Attempts at regular aerobic activity Brian Amador MD, [facility] documented in this encounter Plan of Treatment Upcoming Encounters Date Type Department Care Team (Late st Contact Info) Description 02/28/2027 11:30 AM EDT Office Visit [facility] CARDIOLOGY [address] [place] [address] Brian Amador MD [facility]0 [facility] [address] [place] [address] documented as of this encounter Visit Diagnoses Diagnosis Coronary artery disease involving [place] coronary artery of sk[place] heart without angina pectoris- Primary Primary hypertension Unspecified essential hypertension Mixed hyperlipidemia documented in this encounter Additional Health Concerns Infection Onset Date Last Indicated Resolved Time MRSA Comment:Added from external infection. Source: [facility]. 11/24/2024 documented as of this encounter Care Teams Television Analyzer Relationship Specialty Start Date End Date Noy Flaherty APRN 2016 [facility] 4 [place] [address] PCP - General Family Medicine 05/25/23 documented as of this encounter
--- NOTE | 2025-11-07 10:01 | XR_ITS ---
FINAL REPORT CLINICAL HISTORY: PERSISTENT COUGH/COPD UNSPECIFIED TYPE COMPARISON: 07/25/2025 FINDINGS: 2 views of the chest were obtained . The heart is normal in size. There is a retrocardiac opacity containing air consistent with hiatal hernia. The mediastinum is within normal limits. There are changes of emphysema. There is no focal infiltrate or effusion. There is no pneumothorax. Osseous structures are unremarkable. IMPRESSION: No acute cardiopulmonary process. Reviewed, Interpreted and Dictated by Adeline [place] MD Transcribed by Kenya Martin Authenticated and [facility]
--- OUTSIDE RECORDS SUMMARY | 2025-11-07 10:09 | XMS_ITS | Encounter Summary ---
Author Organization [facility] Address [address] [place] [address] Care Team Providers Care Car Dumper Operator Name Role Phone Noy Flaherty APRN Primary Care Provider + [phone] Cain Us MD Unavailable [phone] Encounter Details Date Type Department Care Team (Late st Contact Info) Description 11/29/2024 Lab Requisition [facility] [address] [place] [address] Cy Valadez MD [address] [facility] [address] [place] [address] Encounter for general adult medical examination without abnormal findings Social History Tobacco Use Types Packs/Day Years Used Date Smoking Tobacco: Every Day Cigarettes 0.5 1 Started: 2024 Smokeless Tobacco: Never Alcohol Use [...] any time in the past 12 m [facility], were you homeless or living in a group home (including now)? No 11/21/2024 Utilities Answer Date [...] at day 1 11/30/2024 8:[address] [facility] Swab (Nares and Vivian Rectal) 11/28/2024 8:55 AM EST 11/29/2024 10:43 AM EST Cy Valadez MD LAB MICROBIOLOGY - GEN ERAL ORDERABLES Final Result [facility] [address] [place] [address] documented in this encounter Visit Diagnoses Diagnosis [...] documented as of this encounter Care Teams Car Dumper Operator Relationship Specialty Start Date End Date Noy Flaherty APRN [id number] PCP - General 11/18/24 Cain Us MD [address] [facility] [address] [place] [address] Cardiology 11/28/24 documented as of this encounter
--- OUTSIDE RECORDS SUMMARY | 2025-11-07 10:09 | XMS_ITS | Encounter Summary ---
Author Organization [facility] Address [address] [place] [address] Care Team Providers Care Green Chain Offbearer Name Role Phone Krystina Noycindi Garcias APRN Primary Care Provid er Reason for Visit * Reason Onset Date Comments Med Refill 09/14/2025 Encounter Details Date Type Department Care Team (Late st Contact Info) Description 09/14/2025 Refill [facility] CARDIOLOG[facility] [address] [facility] [address] [place] [address] Brian Aamdor MD [address] [facility] [address] [place] [address] Med Refill Social History Tobacco Use Types Packs/Day Years [...] Description 02/28/2027 11:30 AM EDT Office Visit [facility] C[facility] [address] [place] [address] Brian Amador MD [address] [facility] [address] [place] [address] documented as of this encounter Visit Diagnoses Not on filedocumented in this encounter Additional Health Concerns Infection Onset Date Last Indicated Resolved Time MRSA Comment:Added from external infection. Source: [facility]. 11/24/2024 documented as of this encounter Care Teams Green Chain Offbearer Relationship Specialty Start Date End Date Noy Flaherty APRN [address] [place] [address] PCP - General Family Medicine 05/25/23 documented as of this encounter
--- OUTSIDE RECORDS SUMMARY | 2025-11-07 10:09 | XMS_ITS | Encounter Summary ---
Author Organization [facility] Address [address] [place] [id number] Care Team Providers Care Jumpbasting Armhole Baster Name Role Phone Noy Flaherty APRN Primary Care Provid er Encounter Details Date Type Department Care Team (Late st Contact Info) Description 09/01/2017 External CPT II FIELD TECHNICAL SUPPORT CONSULTANT - [facility] Social History Tobacco Use [...] Description 02/28/2027 11:30 AM EDT Office Visit [facility] CARDIOLOG[facility] [address] [place] [address] Brian Amador MD [address] [place] [address] documented as of this encounter Visit Diagnoses Not on filedocumented in this encounter Additional Health Concerns Infection Onset Date Last Indicated Resolved Time MRSA Comment:Added from external infection. Source: [facility]. 11/24/2024 documented as of this encounter Care Teams Jumpbasting Armhole Baster Relationship Specialty Start Date End Date Noy Flaherty APRN [address] [address] PCP - General Family Medicine 05/25/23 documented as of this encounter
--- OUTSIDE RECORDS SUMMARY | 2025-11-07 10:09 | XMS_ITS | Encounter Summary ---
Author Organization [facility] Address [address] [place] [address] Care Team Providers Care Yarn Dyer Name Role Phone Noy Flaherty APRN Primary Care Provid er Encounter Details Date Type Department Care Team (Latest Contact Info) Description 10/19/2025 Travel Social History Tobacco Use Types Packs/Day [...] Description 02/28/2027 11:30 AM EDT Office Visit [facility] CARDIOLOG[facility] [address] [address] Brian Amador MD [address] [facility] [address] [place] [address] documented as of this encounter Visit Diagnoses Not on filedocumented in this encounter Additional Health Concerns Infection Onset Date Last Indicated Resolved Time MRSA Comment:Added from external infection. Source: [facility]. 11/24/2024 documented as of this encounter Care Teams Yarn Dyer Relationship Specialty Start Date End Date Noy Flaherty APRN [address] [place] [address] PCP - General Family Medicine 05/25/23 documented as of this encounter
--- OUTSIDE RECORDS SUMMARY | 2025-11-07 10:09 | XMS_ITS | Encounter Summary ---
Author Organization [facility] Address [address] [place] [address] Care Team Providers Care Placement Coordinator Name Role Phone Noy Flaherty APRN Primary Care Provid er Encounter Details Date Type Department Care Team (Late st Contact Info) Description 08/29/2014 External CPT II PARARESCUE MANAGER - [facility] Social History Tobacco Use [...] Description 02/28/2027 11:30 AM EDT Office Visit [facility] CARDIOLOG[facility] [address] [place] [address] Brian Amador MD [address] [facility] [address] [facility] [address] [place] [address] documented as of this encounter Visit Diagnoses Not on filedocumented in this encounter Additional Health Concerns Infection Onset Date Last Indicated Resolved Time MRSA Comment:Added from external infection. Source: [facility]. 11/24/2024 documented as of this encounter Care Teams Placement Coordinator Relationship Specialty Start Date End Date Noy Flaherty APRN [address] [place] [address] PCP - General Family Medicine 05/25/23 documented as of this encounter
--- OUTSIDE RECORDS SUMMARY | 2025-11-07 10:09 | XMS_ITS | Clinical Summary ---
Author Organization [facility] Address [address] [place] [address] Care Team Providers Care Conductor/Brakeman Name Role Phone Noy Flaherty APRN Primary Care Provid er Medications aspirin 81 MG EC tablet Take [...] mouth Daily. 30 tablet 11 12/08/2024 Active atorvastatin (LIPITOR) 80 MG tablet Take 0.5 tablets by mouth Daily. 90 tablet 3 02/28/2025 Active metoprolol tartrate (LOPRESSOR) 25 MG tablet Take 1 tablet by mouth 2 (Two) Times a Day. 180 tablet 3 09/14/2025 Active Active Problems Problem Noted Date Diagnosed Date Hyperlipidemia LDL goal <70 12/15/2024 Essential hypertension 12/15/2024 Coronary artery disease invo lving [place] coronary artery of [place] heart with angina pectoris 12/08/2024 Overview (12/15/2024): Cardiac cath for non-Q wave ND (02/26/2001): LVEF 55% with distal lateral wall [...] Encounters Date Type Department Care Team Description 10/19/2025 11:00 AM EST Office Visit [facility] C[facility] [address] [place] [address] [address] Brian Amador MD Coronary artery disease involving [place] coronary artery of [place] heart without angina pectoris (Primary Dx); Primary hypertension; Mixed hyperlipidemia 10/19/2025 Travel 09/14/2025 Refill [facility] [address] [facility] [address] [place] [address] Brian Amador MD Med Refill from Last 3 Months Immunizations Immunization Administration [...] Pulse 73 10/19/2025 10:40 AM EST Temperature 36.1 C (96.9 F) 12/15/2024 7:23 AM EST Respiratory Rate 14 12/15/2024 11:58 AM EST Oxygen Saturation 95% 10/19/2025 10:40 AM EST Inhaled Oxygen Concentration - - Weight 71.2 kg (157 lb) 10/19/2025 10:40 AM EST Height 170.2 cm (5' 7 ) 10/19/2025 10:40 AM EST Body Mass Index 24.59 10/19/2025 10:40 AM EST Plan of Treatment Upcoming Encounters Date Type Department Care Team (Late st Contact Info) Description 02/28/2027 11:30 AM EDT Office Visit [facility] [address] [place] [address] Brian Amador MD [address] [place] [address] Health Maintenance Due Date Last Done Comments [...] DXA SCAN 02/26/2024 02/25/2022, 06/30/2017 COVID-19 Vaccine (2024-2 6 season) 2025 08/03/2025, 07/20/2024, 08/11/2023, Additional history exists LIPID PANEL 11/18/2025 11/18/2024, 11/09, 01/31/2022, Additional history exists COLON CANCER SCREENING 5 YEA R SIGMOIDOSCOPY 03/18/2027 03/18/2022 COLONOSCOPY 03/18/2032 03/18/2022, 03/10, 11/15/2020 COLORECTAL CANCER SCREENING 03/18/2032 INFLUENZA VACCINE Completed 08/03/2025, , 08/06/2023, Additional history exists Additional Health Concerns Infection Onset Date Last Indicated MRSA Comment:Added from external infection. Source: [facility]. 11/24/2024 Insurance MEDICARE A & B [facility] OPTIONS Advance Directives * CPR (Attempt to Resuscitate) (Latest Code Status on File) Date Activated Date Inactivated Comments 12/15/2024 12:10 PM 12/15/2024 7:28 PM Question Answer Comments Code Status (Patient has no pulse and is not breathing): CPR (Attempt to Resuscitate) Medical Interventions (Patie nt has pulse or is breathing): Full Support Care Teams Conductor/Brakeman Relationship Specialty Start Date End Date Noy Flaherty APRN [address] [address] PCP - General Family Medicine 05/25/23
--- OUTSIDE RECORDS SUMMARY | 2025-11-07 10:09 | XMS_ITS | Clinical Summary ---
Author Organization [facility] Address [address] [place] [address] Care Team Providers Care Warehouse Manager Name Role Phone Noy Flaherty APRN Primary Care Provider + [phone] Cain Us MD Unavailable [phone] Allergies No known active allergies Medications nitroglycerin [...] not swallow. 36 g 5 Active Tiotropium Marinette Monohydrate (Spiriva Respimat) 2.5 MCG/ACT inhaler Inhale 2 puffs 1 (one) time each day. 4 g 5 Active ipratropium-alb uterol (Duo-Neb) 0.5-2.5 mg/3 mL nebulizer solution Take 3 mL by nebulization every 6 (six) hours if needed for wheezing. 180 mL Active nitroglycerin (Nitrostat) 0.4 MG SL tablet [...] admission and managed with medical therapies GDMT CAD, multiple vessel 11/18/2024 Overview (11/26/2024): Demonstrated per [facility] 11/18 - Pending surgical plan with acute [...] gain 11/26/2024 11/26/2024 Increased infection risk 11/26/2024 HAP (hospital-acquired pneumonia) 11/19/2024 07/30/2025 Overview (11/27/2024): Noted per imaging on 11/24, admitted for approximately 1 week prior to this -MRSA PCR positive - Continue Vanco and Cefepime (D3), Azithro (D2) of 5 NSTEMI (non-ST elevated myoc ardial infarction) 11/18/2024 12/01/2024 Overview (11/26/2024): ACS heparin protocol S/P LHC at OSH with attempted PCI - Plavix at [facility], AsA at [facility] - Pending surgical plan Social History Tobacco Use Types Packs/Day Years Used Date Smoking Tobacco: Every Day Cigarettes 0.5 1 Started: 2024 Smokeless Tobacco: Never Tobacco Cessation:Ready [...] any time in the past [address] [facility], were you homeless or living in a snf (including now)? No 11/21/2024 Utilities Answer Date [...] Screenings 05/21/2025 [facility]-Adult SDOH Screenings 05/21/2025 11/21/2024 [id number] Vaccine ( season) 2025 07/20/2024, 08/11/2023, 08/14/2022, Additional history exists [facility]-Influenza Vaccine (#1) 07/10/202507/20, 08/06/2023, 06/27/2022 [facility]-RSV Vaccine: 60+ Years or Completed 08/06/2023 HPV Vaccines (No Doses Required) Completed [facility]-HIB Vaccines Aged Out No longer e ligible based on patient's age to complete this topic [facility]-IPV Vaccines Aged Out No longer e ligible based on patient's age to complete this topic [facility]-Rotavirus Vaccines Aged Out No lo nger eligible based on patient's age to complete this topic Additional Health Concerns Infection Onset Date Last Indicated MRSA 11/24/2024 11/24/2024 Insurance [place] [address] MEDICARE AARP Advance Directives * Full Code (Latest Code Status on File) Date Activated Date Inactivated Comments 11/18/2024 5:34 PM 12/01/2024 5:01 PM Question Answer Comments Patient has decision-making capacity? Yes Care Teams Warehouse Manager Relationship Specialty Start Date End Date Noy Flaherty APRN [id number] PCP - General 11/18/24 Cain Us MD [address] [facility] [address] [place] [address] Cardiology 11/28/24
[2025-11-07 10:51] LABS: Hematocrit 33.8 % (37.0-47.0); Hemoglobin 10.4 g/dL (12.2-16.2); Immature Granulocytes % 0.8 %; Mean Corpuscular HGB Conc 30.8 g/dL (31.8-35.4); Mean Corpuscular Hemoglobin 24.1 pg (27.0-31.2); Mean Corpuscular Volume 78.4 fl (81-99); Nucleated Red Blood Cells % 0 %; Platelet Count 397 K/mm3 (142-424); Red Blood Count 4.31 M/mm3 (4.20-5.40); Red Cell Distribution Width-SD 54.4 fL; White Blood Count 10.2 K/mm3 (4.8-10.8)
[2025-11-07 11:21] LABS: Chloride 107 mmol/L (98-107); Sodium 141 mmol/L (136-145)
[2025-11-07 11:22] LABS: Potassium 3.2 mmoL/L (3.5-5.1)
[2025-11-07 11:24] LABS: Blood Urea Nitrogen 21 mg/dl (7-17); Creatinine,Serum 0.90 mg/dl (0.52-1.04); Estimated Glomerular Filt Rate 61 ml/min (>60); GFR (African American) 73 ML/MIN (>60)
[2025-11-07 11:25] LABS: Anion Gap 11.2 mEq/L (5-15); Calcium 8.2 mg/dl (8.4-10.2); Carbon Dioxide 26 mmol/L (22.0-30.0); Glucose 84 mg/dl (74-100)
== END 2025-11-07 23:59 | disposition home or self-care (01) ==
LOC: LAB 09:57
PROVIDERS: PCP Nurse Practitioner Family; Visit Provider Nurse Practitioner Family
DX: J44.9 Chronic obstructive pulmonary disease, unspecified (principal)
CPT/HCPCS: 36415; 71046; 80048; 85025

== ENCOUNTER 2025-11-08 10:21 | Outpatient (CLI) | payer MEDICARE, SELFPAY ==
--- OUTSIDE RECORDS SUMMARY | 2025-10-19 11:00 | XMS_ITS | Encounter Summary ---
Author Organization [facility] Address [address] [place], [place] [address] Care Team Providers Care Customer Service Advisor Name Role Phone Noy Flaherty APRN Primary Care Provid er Reason for Visit * Reason Comments Nonrheumatic mitral valve regurgitation Encounter Details Date Type Department Care Team (Late st Contact Info) Description 10/19/2025 11:00 AM EST Office Visit [facility] CARDIOLOG[facility] [address] [place] [address] Brian Amador MD [address] [facility] [address] [place] [address] Coronary artery disease involving [place] coronary artery of miami heart without angina pectoris (Primary Dx); Primary hypertension; Mixed hyperlipidemia Social History Tobacco Use Types Packs/Day Years [...] Information Value Date Recorded Sex Assigned at Female 10/12/2025 11:41 AM EST Legal Sex Female 10:13 AM EDT Gender Identity Not on file Sexual Orientation Not on file documented as of this encounter Last Filed Vital Signs Vital Sign Reading Time Taken Comments Blood Pressure 124/72 10/19/2025 10:40 AM EST Pulse 73 10/19/2025 10:40 AM EST Temperature - - Respiratory Rate - - Oxygen Saturation 95% 10/19/2025 10:40 AM EST Inhaled Oxygen Concentration - - Weight 71.2 kg (157 lb) 10/19/2025 10:40 AM EST Height 170.2 cm (5' 7 ) 10/19/2025 10:40 AM EST Body Mass Index 24.59 10/19/2025 10:40 AM EST documented in this encounter Progress Notes * Brian Amador MD - 10/19/2025 11:[address] [facility] Cardiology Office Progress Note Radha Leah Rivera [address] [place], [place] [id number] Visit Date: 10/19/25 PCP: Noy Flaherty, GARY [address] [place] [id number] IDENTIFICATION: A 80 y.o. single female retired [employer] [place]. Dr Melara' Aunt Dudu PROBLEM LIST: Ischemic heart disease: Non-Q wave myocardial infarction, 02/25/2001. Cardiac catheterization, 02/26/2001. LVEF 55%; distal lateral wall hypokinesis. Total occlusion of major obtuse marginal reduced to 0% following stent deployment (2.5x18 mm Elite stent). Cardiolite GXT, 02/29/2004: Exercise duration of 8 minutes, which was mildly abnormal with evidenceof a small amount of reversible ischemia involving the base of the inferior wall. Normal LV systolic function. PTCA/brachytherapy of mid-circumflex with intrastent restenosis; LVEF 70%, 10/10/2004. 10/27 echo [facility] EF 45% IR mild mr/tr 12/2019 cardiolite wnl EF 67% 12/05/24 NSTEMI [facility] attempted ISS PCI to Cx 01/03 LH unsuccessful PCI CX at ISS med Rx per HTR 01/31 echo EF >51% IR mild MR rvsp <35 Dyslipidemia statin therapy. 05/31 LDL 69 Tobacco use cessation? 2000. COPD-noted cxr 2018 Hiatal hernia/GERD, treatment for H. pylori, spring 2006. Surgical history: Partial hysterectomy. Right knee arthroscopy. CC: Chief Complaint Patient presents with Nonrheumatic mitral valve regurgitation Allergies No Active Allergies Current Medications Current Outpatient Medications: albuterol sulfate HFA 108 (90 Base) MCG/ACT inhaler, Inhale 2 puffs Every 6 (Six) Hours., Disp: , Rfl: aspirin 81 MG EC tablet, Take 1 tablet by mouth Daily., Disp: , Rfl: atorvastatin (LIPITOR) 80 MG tablet, Take 0.5 tablets by mouth Daily., Disp: 90 tablet, Rfl: 3 clopidogrel (PLAVIX) 75 MG tablet, Take 1 tablet by mouth Daily., Disp: 30 tablet, Rfl: 11 docusate sodium (COLACE) 100 MG capsule, Take 1 capsule by mouth As Needed., Disp: , Rfl: metoprolol tartrate (LOPRESSOR) 25 MG tablet, Take 1 tablet by mouth 2 (Two) Times a Day., Disp: 180 tablet, Rfl: 3 nitroglycerin (NITROSTAT) 0.4 MG SL tablet, PLACE 1 TABLET UNDER THE TONGUE EVERY 5 MINUTES NEEDED FOR CHEST PAIN. TAKE NO MORE THAN 3 DOSES IN 15 MINUTES, Disp: 25 tablet, Rfl: 6 O2 (OXYGEN), Inhale 2 L/min 1 (One) Time. 2.5 liters at night, Disp: , Rfl: Trelegy Ellipta 100-62.5-25 MCG/ACT inhaler, Inhale 1 puff Daily., Disp: , Rfl: History of Present Illness Radha Rivera is a 80 y.o. year old female here for hospital follow up. No new cardiac issues. She is sitting with a 93-year-old 3 times weekly. She states she is not smoking and has gained some weight. OBJECTIVE: Vitals: 10/19/25 1040 BP: 124/72 BP Location: Right arm Patient Position: Sitting Cuff Size: Adult Pulse: 73 SpO2: 95% Weight: 71.2 kg (157 lb) Height: 170.2 cm (67 ) Body mass index is 24.59 kg/m??. Constitutional: Appearance: Healthy appearance. Not in distress. Neck: Vascular: No JVR. JVD normal. Pulmonary: Effort: Pulmonary effort is normal. Breath sounds: Wheezing present. No rhonchi. No rales. Chest: Chest wall: Not tender to palpatation. Cardiovascular: PMI at left midclavicular line. Normal rate. Regular rhythm. Normal S1. Normal S2. Murmurs: There is a systolic murmur. No gallop. No click. No rub. Pulses: Intact distal pulses. Edema: Peripheral edema absent. Abdominal: General: Bowel sounds are normal. Palpations: Abdomen is soft. Tenderness: There is no abdominal tenderness. Musculoskeletal: Normal range of motion. General: No tenderness. Skin: General: Skin is warm and dry. Neurological: General: No focal deficit present. Mental Status: Alert and oriented to person, place and time. Diagnostic Data: Procedures ASSESSMENT: Diagnosis Plan 1. Coronary artery disease involving miami coronary artery of miami heart without angina pectoris 2. Primary hypertension 3. Mixed hyperlipidemia PLAN: CAD post remote PCI stenting continue DAPT, potentially DC aspirin without any bleeding issue Hypertension controlled atenolol low-dose Mixed dyslipidemia controlled on statin therapy Attempts at regular aerobic activity Brian Amador MD, [facility] documented in this encounter Plan of Treatment Upcoming Encounters Date Type Department Care Team (Late st Contact Info) Description 02/28/2027 11:30 AM EDT Office Visit [facility] [address] [place] [address] Brian Amador MD [facility]0 [facility] [address] [place] [address] documented as of this encounter Visit Diagnoses Diagnosis Coronary artery disease involving miami coronary artery of miami heart without angina pectoris- Primary Primary hypertension Unspecified essential hypertension Mixed hyperlipidemia documented in this encounter Additional Health Concerns Infection Onset Date Last Indicated Resolved Time MRSA Comment:Added from external infection. Source: [facility]. 11/24/2024 documented as of this encounter Care Teams Customer Service Advisor Relationship Specialty Start Date End Date Noy Flaherty APRN 2016 [facility] 4 [place] [address] PCP - General Family Medicine 05/25/23 documented as of this encounter
--- OUTSIDE RECORDS SUMMARY | 2025-11-08 10:26 | XMS_ITS | Clinical Summary ---
Author Organization [facility] Address [address] [place] [address] Care Team Providers Care Top Lifter Name Role Phone Noy Flaherty APRN Primary [...] hypertension 12/15/2024 Coronary artery disease invo lving [place] coronary artery of [place] heart with angina pectoris 12/08/2024 Overview (12/15/2024): Cardiac cath for non-Q wave RI (02/26/2001): LVEF 55% with distal lateral wall [...] Description 10/19/2025 11:00 AM EST Office Visit [facility] [address] [place] [address] [place] [address] Brian Amador MD Coronary artery disease involving [place] coronary artery of [place] heart without angina pectoris (Primary Dx); Primary hypertension; Mixed hyperlipidemia 10/19/2025 Travel 09/14/2025 Refill [facility] [address] [facility] [address] [place] [address] Brian Amador MD Med Refill from Last [...] Description 02/28/2027 11:30 AM EDT Office Visit [facility] [address] [place] [address] Brian Amador MD [address] [place] [address] Health Maintenance Due Date Last Done Comments [...] Healthcare. 11/24/2024 Insurance MEDICARE A & B [facility] OPTIONS Advance Directives * CPR (Attempt to Resuscitate) (Latest Code Status on File) Date Activated Date Inactivated Comments 12/15/2024 12:10 PM 12/15/2024 7:28 PM Question Answer Comments Code Status (Patient has no pulse and is not breathing): CPR (Attempt to Resuscitate) Medical Interventions (Patie nt has pulse or is breathing): Full Support Care Teams Top Lifter Relationship Specialty Start Date End Date Noy Flahrety APRN [address] [address] PCP - General Family Medicine 05/25/23
--- OUTSIDE RECORDS SUMMARY | 2025-11-08 10:26 | XMS_ITS | Clinical Summary ---
Author Organization [facility] Address [address] [place] [address] Care Team Providers Care Decorator Hand Name Role Phone Noy Flaherty APRN Primary Care Provider + [phone] Cain Us MD Unavailable [phone] Allergies No known active allergies Medications nitroglycerin [...] not swallow. 36 g 5 Active Tiotropium [place]dwell Monohydrate (Spiriva Respimat) 2.5 MCG/ACT inhaler Inhale [...] multiple vessel 11/18/2024 Overview (11/26/2024): Demonstrated per [facility] 11/18 - Pending surgical plan with acute [...] time in the past 12 m [facility], were you homeless or living in a correction (including now)? No 11/21/2024 Utilities Answer Date [...] Screenings 05/21/2025 [facility]-Adult SDOH Screenings 05/21/2025 11/21/2024 [id number] Vaccine ( season) 2025 07/20/2024, 08/11/2023, 08/14/2022, [...] Last Indicated MRSA 11/24/2024 11/24/2024 Insurance [place] [address] MEDICARE [employer] Advance Directives * Full Code (Latest Code Status on File) Date Activated Date Inactivated Comments 11/18/2024 5:34 PM 12/01/2024 5:01 PM Question Answer Comments Patient has decision-making capacity? Yes Care Teams Decorator Hand Relationship Specialty Start Date End Date Noy Flaherty APRN [id number] PCP - General 11/18/24 Cain Us MD [address] [facility] [address] [place] [address] Cardiology 11/28/24
--- OUTSIDE RECORDS SUMMARY | 2025-11-08 10:26 | XMS_ITS | Encounter Summary ---
[facility] Organization [facility] Address [address] [place] [address] Care Team Providers Care Pre Press Proofer Name Role Phone Noy Flaherty APRN Primary Care Provid er Encounter Details Date Type Department Care Team (Late st Contact Info) Description 08/29/2014 External CPT II [facility] Social History Tobacco Use [facility] [address] [place] [address] Brian Amador MD [address] [facility] [address] [facility] [address] [place] [address] documented as of this encounter Visit Diagnoses Not on filedocumented in this encounter Additional Health Concerns Infection Onset Date Last Indicated Resolved Time MRSA Comment:Added from external infection. Source: Healthcare. 11/24/2024 documented as of this encounter Care Teams Pre Press Proofer Relationship Specialty Start Date End Date Noy Flaherty APRN [address] [place] [address] PCP - General Family Medicine 05/25/23 documented as of this encounter
--- OUTSIDE RECORDS SUMMARY | 2025-11-08 10:26 | XMS_ITS | Encounter Summary ---
[facility] Organization [facility] Address [address] [place] [address] Care Team Providers Care Graduate Assistant Name Role Phone Krystina Noycindi Garcias APRN Primary Care Provid er Reason for Visit * Reason Onset Date Comments Med Refill 09/14/2025 Encounter Details Date Type Department Care Team (Late st Contact Info) Description 09/14/2025 Refill [facility] [address] [facility] [address] [place] [address] Brian Amador MD [address] [facility] [address] [place] [address] Med Refill Social History Tobacco Use Types [facility] [address] [place] [address] Brian Amador MD [address] [facility] [address] [place] [address] documented as of this encounter Visit Diagnoses Not on filedocumented in this encounter Additional Health Concerns Infection Onset Date Last Indicated Resolved Time MRSA Comment:Added from external infection. Source: Healthcare. 11/24/2024 documented as of this encounter Care Teams Graduate Assistant Relationship Specialty Start Date End Date Noy Flaherty APRN [address] [place] [address] PCP - General Family Medicine 05/25/23 documented as of this encounter
--- OUTSIDE RECORDS SUMMARY | 2025-11-08 10:26 | XMS_ITS | Encounter Summary ---
Author Organization [facility] Address [address] [place] [address] Care Team Providers Care Site Acquisition Manager Name Role Phone Noy Flaherty APRN Primary Care Provider + [phone] Cain Us MD Unavailable [phone] Encounter Details Date Type Department Care Team (Late st Contact Info) Description 11/29/2024 Lab Requisition [facility] [address] [place] [address] Cy Valadez MD [address] [facility] [address] [place] [address] Encounter for general adult medical examination without [...] any time in the past 12 m [facility], were you homeless or living in [...] at day 1 11/30/2024 8:02 AM EST [facility] Swab (Nares and Vivian Rectal) 11/28/2024 8:55 AM EST 11/29/2024 10:43 AM EST Cy Valadez MD LAB MICROBIOLOGY - GEN ERAL ORDERABLES Final Result [facility] [address] [place] [address] documented in this encounter Visit Diagnoses Diagnosis [...] documented as of this encounter Care Teams Site Acquisition Manager Relationship Specialty Start Date End Date Noy Flaherty APRN [id number] PCP - General 11/18/24 Cain Us MD [address] [facility] [address] [place] [address] Cardiology 11/28/24 documented as of this encounter
--- OUTSIDE RECORDS SUMMARY | 2025-11-08 10:26 | XMS_ITS | Encounter Summary ---
[facility] Address [address] [place] [id number] Care Team Providers Care Bacon Skin Lifter Name Role Phone Noy Flaherty APRN Primary Care Provid er Encounter Details Date Type Department Care Team (Late st Contact Info) Description 09/01/2017 External CPT II [facility] Social History Tobacco [...] [facility] [address] [place] [address] Brian Amador MD [address] [facility] [address] [place] [address] documented as of this encounter Visit Diagnoses Not on filedocumented in this encounter Additional Health Concerns Infection Onset Date Last Indicated Resolved Time MRSA Comment:Added from external infection. Source: Healthcare. 11/24/2024 documented as of this encounter Care Teams Bacon Skin Lifter Relationship Specialty Start Date End Date Noy Flaherty APRN [address] [address] PCP - General Family Medicine 05/25/23 documented as of this encounter
--- OUTSIDE RECORDS SUMMARY | 2025-11-08 10:26 | XMS_ITS | Encounter Summary ---
[facility] Address [address] [place] [address] Care Team Providers Care Double Surface Operator Name Role Phone Noy Flaherty APRN [...] [facility] [address] [place] [address] Brian Amador MD [address] [facility] [address] [place] [address] documented as of this encounter Visit Diagnoses Not on filedocumented in this encounter Additional Health Concerns Infection Onset Date Last Indicated Resolved Time MRSA Comment:Added from external infection. Source: Healthcare. 11/24/2024 documented as of this encounter Care Teams Double Surface Operator Relationship Specialty Start Date End Date Noy Flaherty APRN [address] [place] [address] PCP - General Family Medicine 05/25/23 documented as of this encounter
== END 2025-11-08 23:59 | disposition home or self-care (01) ==
LOC: LAB 10:22
PROVIDERS: PCP Nurse Practitioner Family; Visit Provider Nurse Practitioner Family
DX: J44.9 Chronic obstructive pulmonary disease, unspecified (principal)
CPT/HCPCS: 87070; 87205